=== PATIENT | male | born 1990 | race Caucasian/White ===

== ENCOUNTER 2022-04-23 12:05 | Outpatient (REF) | payer MEDICAID, SELFPAY ==
--- NOTE | ~2022-04-23 | XR_ITS ---
EXAMINATION: XR LUMBOSACRAL SPINE WITH OBLIQUES CLINICAL INFORMATION: Back pain. COMPARISON: Dorsal spine radiographs 04/22/2022 TECHNIQUE: Lumbar spine is imaged in 5 views. FINDINGS: There is normal lumbar segmentation with 5 nonrib-bearing lumbar vertebrae of normal height and normal lumbar lordosis. No lumbar vertebral compression, spondylolisthesis, destructive process, or disc narrowing. No erosive changes. Oblique views show no spondylolysis. The SI joints and visualized sacrum are unremarkable. XR/XR lumbar spine 4V min IMPRESSION: Unremarkable examination.
--- NOTE | ~2022-04-23 | XR_ITS ---
EXAMINATION: XR THORACIC SPINE CLINICAL INFORMATION: Dorsal pain. COMPARISON: Radiographs cervical spine and lumbar spine 04/23/2022., Chest radiographs 12/20/2013 TECHNIQUE: 3 views of the thoracic spine were obtained. FINDINGS: Normal thoracic segmentation with 12 rib-bearing thoracic vertebrae of normal height and normal thoracic kyphosis. No thoracic vertebral compression, destructive process, disc narrowing, or paraspinal soft tissues swelling. No spondylolisthesis. XR/XR thoracic spine 3V IMPRESSION: Unremarkable examination.
--- NOTE | ~2022-04-23 | XR_ITS ---
EXAMINATION: XR CERVICAL SPINE CLINICAL INFORMATION: Neck pain COMPARISON: None TECHNIQUE: 5 views of the cervical spine were obtained. FINDINGS: The cervical vertebral bodies are normal in height and there is no vertebral compression or visible fracture or destructive process. The odontoid appears intact. No prevertebral soft tissue swelling. No focal disc narrowing or spondylolisthesis. No erosive change. There is borderline posterior spurring at C3-C4. Oblique view show no osseous narrowing of the neural foramina. XR/XR cervical spine 4V IMPRESSION: 1. No vertebral compression, spondylolisthesis, or disc narrowing. 2. Borderline posterior spurring C3-C4.
== END 2022-04-23 12:06 | disposition home or self-care (01) ==
LOC: HO.XRAY 12:05
PROVIDERS: PCP Registered Nurse; Visit Provider Registered Nurse
DX: M54.6 Pain in thoracic spine (principal); M54.2 Cervicalgia; M54.50 Low back pain, unspecified
CPT/HCPCS: 72050; 72072; 72110

== ENCOUNTER 2022-05-23 21:19 | Emergency (ER) | payer MEDICAID, SELFPAY ==
[2022-05-23 21:36] VITALS: BP 147/76; PULSE 102; RESP 18; TEMP 36.8; O2SAT 97; BMI 37.9
[2022-05-23 22:27] LABS: MANUAL DIFF FLAG NO
[2022-05-23 22:29] LABS: Basophils Absolute Auto 0.1 X10*3/uL (0.0-0.2); Basophils Percent Auto 0.6 % (0-2); Eosinophils Absolute Auto 0.1 X10*3/uL (0.0-0.4); Eosinophils Percent Auto 1.3 % (0-4); Hematocrit 46.4 % (42.0-52.0); Hemoglobin 16.3 g/dl (14.0-18.0); Imm Gran Abs Auto 0.02 X10*3/uL (0.00-0.03); Imm Gran Pct Auto 0.2 % (0.0-0.4); Lymphocytes Percent Auto 23.9 % (20-40); Mean Corpuscular HGB Conc 35.1 g/dl (31.0-36.0); Mean Corpuscular Hemoglobin 30.1 pg (27.0-33.0); Mean Corpuscular Volume 85.6 fL (80.0-98.0); Mean Platelet Volume 9.8 fL (9.4-12.4); Monocytes Absolute Auto 0.7 X10*3/uL (0.1-1.2); Neutrophils Absolute Auto 5.4 x10*3/uL (2.0-8.3); Platelet Count 253 X10*3/uL (160-400); Red Blood Count 5.42 X10*6/uL (4.60-5.80); Red Cell Distribution Width 11.9 % (11.0-16.0); White Blood Count 8.2 X10*3/uL (4.8-10.8)
[2022-05-23 22:50] LABS: OBS Int Ctl Valid YES; OBS1 POSITIVE (NEGATIVE)
[2022-05-23 22:51] LABS: Alanine Aminotransferase 33 U/L (0-40); Albumin Level 4.4 g/dL (3.5-5.0); Alkaline Phosphatase 59 U/L (39-117); Anion Gap 12 (12-20); Aspartate Amino Transferase 24 U/L (5-37); Bilirubin Total 0.7 mg/dL (0.0-1.0); Blood Urea Nitrogen 19 mg/dL (9-16); Calcium 9.2 mg/dL (8.4-10.2); Carbon Dioxide 28 mmol/L (22-29); Chloride 105 mmol/L (96-108); Estimated Glomerular Filt Rate > 60; Glucose Random 99 mg/dL (60-115); Potassium 4.1 mmol/L (3.3-5.1); Sodium 141 mmol/L (135-145); Total Protein 7.3 g/dL (6.5-8.0)
[2022-05-23 22:56] LABS: COVID-19 Test Negative (Negative)
--- NOTE | 2022-05-23 23:19 | ED.GIBLEED ---
HPI - GI Bleed General Chief complaint: GI Bleed Stated complaint: rectal bleeding Time Seen by Provider: 05/23/22 22:13 Source: patient Mode of arrival: ambulatory History of Present Illness HPI Narrative: 32-year-old male presents with a copious amount of rectal bleeding that occurred after defecation this afternoon and was not associated with abdominal pain, nausea, vomiting, NSAID use and has since stopped. However, patient reports that he has had intermittent episodes like this throughout his life but that today it was ?more than usual . Related Data Allergies Allergy/AdvReac Type Severity Reaction Status Date / Time No Known Allergies Allergy Unverified 02/23/20 16:15 Review of Systems Review of Systems: Pertinent positives and negatives as stated in HPI 10 point review of systems otherwise negative. PMFSH Past Medical History Source: nursing notes reviewed Social History Social History Smoked in Last 30 Days: No Use of substances other than those prescribed or required for medical reasons: No Advance Directives: No Advance Directives Information Provided: No Physical Exam Vital Signs: Vital Signs: Last Vital Signs Temp 98.2 F 05/23/22 21:36 Pulse 102 H 05/23/22 21:36 Resp 18 05/23/22 21:36 BP 147/76 H 05/23/22 21:36 Pulse Ox 97 05/23/22 21:36 O2 Del Method 05/23/22 21:36 BMI result Body Mass Index 37.9 VITAL SIGNS: Reviewed. GENERAL: Well developed, well nourished, in no acute distress. HEAD: Normocephalic/atraumatic EYES: PERRLA, EOMI EARS: Ext canals without abnormality OROPHARYNX: no oral lesions noted, posterior pharynx clear, pink mucosa NECK: Supple, no adenopathy LUNGS: Normal breath sounds. No adventitious sounds or accessory muscle use. SpO2<97> CARDIOVASCULAR: Regular rate and rhythm without noted murmurs ABDOMEN: Soft, non-tender, non-distended with bowel sounds. MARTHA: Not inflamed/dilated external hemorrhoids noted at the 6 o'clock position, scant stool in the rectal vault without gross blood on finger, good rectal tone MUSCULOSKELETAL: No tenderness, deformities, or effusions noted on gross inspection. EXTREMITIES: No cyanosis, clubbing or edema. SKIN: Inspection of the skin reveals no rashes NEUROLOGIC: Alert and oriented x 4. Strength and sensation to light touch were grossly intact x 4. Course Course Course Narrative: 32-year-old male with history and clinical presentation consistent with hemorrhoidal bleeding, review of lab work demonstrates stable H&H, patient is not hypotensive, there is good color to mucosa and although there is a noted tachycardia-102 there was not gross blood on the finger, abdominal exam is benign and there is negative history for unexplained weight loss, family history colon cancer. Of note, patient does report a lifelong history of 4-5 bowel movements a day. The stool guaiac is positive, however this is not surprising but patient appears otherwise objectively and clinically stable. Medical Decision Making Lab Data Result Diagrams: 05/23/22 22:23 05/23/22 22:23 Labs: Lab Results 05/23/22 05/23/22 05/23/22 Range/Units 22:23 22:23 22:23 WBC 8.2 (4.8-10.8) X10*3/uL RBC 5.42 (4.60-5.80) X10*6/uL Hgb 16.3 (14.0-18.0) g/dl Hct 46.4 (42.0-52.0) % MCV 85.6 (80.0-98.0) fL MCH 30.1 (27.0-33.0) pg MCHC 35.1 (31.0-36.0) g/dl RDW 11.9 (11.0-16.0) % Plt Count 253 (160-400) X10*3/uL MPV 9.8 (9.4-12.4) fL Immature Gran % (Auto) 0.2 (0.0-0.4) % Neut % (Auto) 66.0 (45-73) % Lymph % (Auto) 23.9 (20-40) % [place] % (Auto) 8.0 (2-11) % Eos % (Auto) 1.3 (0-4) % Baso % (Auto) 0.6 (0-2) % Lymph # (Auto) 2.0 (1.2-4.9) X10*3/uL [place] # (Auto) 0.7 (0.1-1.2) X10*3/uL Eos # (Auto) 0.1 (0.0-0.4) X10*3/uL Baso # (Auto) 0.1 (0.0-0.2) X10*3/uL Abs Immat Gran (auto) 0.02 (0.00-0.03) X10*3/uL Absolute Neuts (auto) 5.4 (2.0-8.3) x10*3/uL Absolute Nucleated RBC 0.000 (0.0-0.012) X10*3/uL Nucleated RBC % (auto) 0.0 (0.0-0.2) /100WBC Sodium 141 (135-145) mmol/L Potassium 4.1 (3.3-5.1) mmol/L Chloride 105 (96-108) mmol/L Carbon Dioxide 28 (22-29) mmol/L Anion Gap 12 (12-20) BUN 19 H (9-16) mg/dL Creatinine 1.15 (0.5-1.4) mg/dL Estim Creat Clear Calc 111.0 Estimated GFR > 60 Random Glucose 99 (60-115) mg/dL Calcium 9.2 (8.4-10.2) mg/dL Total Bilirubin 0.7 (0.0-1.0) mg/dL AST 24 (5-37) U/L ALT 33 (0-40) U/L Alkaline Phosphatase 59 (39-117) U/L Total Protein 7.3 (6.5-8.0) g/dL Albumin 4.4 (3.5-5.0) g/dL Stool Occult Blood (NEGATIVE) COVID-19 ([facility]URKA) Negative (Negative) COVID-19 Clin Com See Note 05/23/22 Range/Units 22:42 WBC (4.8-10.8) X10*3/uL RBC (4.60-5.80) X10*6/uL Hgb (14.0-18.0) g/dl Hct (42.0-52.0) % MCV (80.0-98.0) fL MCH (27.0-33.0) pg MCHC (31.0-36.0) g/dl RDW (11.0-16.0) % Plt Count (160-400) X10*3/uL MPV (9.4-12.4) fL Immature Gran % (Auto) (0.0-0.4) % Neut % (Auto) (45-73) % Lymph % (Auto) (20-40) % [place] % (Auto) (2-11) % Eos % (Auto) (0-4) % Baso % (Auto) (0-2) % Lymph # (Auto) (1.2-4.9) X10*3/uL [place] # (Auto) (0.1-1.2) X10*3/uL Eos # (Auto) (0.0-0.4) X10*3/uL Baso # (Auto) (0.0-0.2) X10*3/uL Abs Immat Gran (auto) (0.00-0.03) X10*3/uL Absolute Neuts (auto) (2.0-8.3) x10*3/uL Absolute Nucleated RBC (0.0-0.012) X10*3/uL Nucleated RBC % (auto) (0.0-0.2) /100WBC Sodium (135-145) mmol/L Potassium (3.3-5.1) mmol/L Chloride (96-108) mmol/L Carbon Dioxide (22-29) mmol/L Anion Gap (12-20) BUN (9-16) mg/dL Creatinine (0.5-1.4) mg/dL Estim Creat Clear Calc Estimated GFR Random Glucose (60-115) mg/dL Calcium (8.4-10.2) mg/dL Total Bilirubin (0.0-1.0) mg/dL AST (5-37) U/L ALT (0-40) U/L Alkaline Phosphatase (39-117) U/L Total Protein (6.5-8.0) g/dL Albumin (3.5-5.0) g/dL Stool Occult Blood POSITIVE (NEGATIVE) COVID-19 ([facility]URKA) (Negative) COVID-19 Clin Com Discharge Plan Discharge Clinical Impression: Hemorrhoids, Bleeding hemorrhoids Patient Disposition: Home, Self-Care Instructions: Hemorrhoids (ED), Constipation (ED), High Fiber Diet (ED) Additional Instructions: 1. Recommend [id number] tucks or preparation H for anal itching 2. Recommend that you eat a diet high in fiber, increase your fresh fruits and vegetables 3. You have been provided with a referral to follow-up with gastroenterology and should call the office on Thursday. 4. Please follow-up with your primary care provider by calling the office on Thursday. Return to the ER for worsening symptoms. Referrals: Hiwot Claros MD [Physician] -
--- NOTE | 2022-05-23 23:57 | PC.NURSE ---
Discharge instructions reviewed with pt. Pt verbalizes understanding.
== END 2022-05-23 23:57 | disposition home or self-care (01) ==
PROVIDERS: Emergency Provider Student in an Organized Health Care Education/Training Program
DX: K64.4 Residual hemorrhoidal skin tags (principal); R00.0 Tachycardia, unspecified; Z20.822 Contact with and (suspected) exposure to COVID-19
CPT/HCPCS: 36415; 80053; 82272; 85025; 87635; 99283; 99284

== ENCOUNTER 2022-06-05 00:11 | Emergency (ER) | payer MEDICAID, SELFPAY ==
[2022-06-05 00:17] VITALS: BP 138/76; PULSE 121; RESP 20; TEMP 37.8; O2SAT 95; BMI 34.4
--- OUTSIDE RECORDS SUMMARY | 2022-06-05 00:46 | XMS_ITS | Continuity of Care Document ---
:1990 Author Organization [facility] Address [address] [place] [id number]- Care Team Providers Name Role Phone Not on Staff, PCP Primary Care Physician Unavailable Encounter [facility] Date(s): 08/23/19 - 08/23/[address] [id number]- [facility] Encounter Diagnosis Concussion (Final) - 08/23/19 Discharge Disposition: A-D/C Home Attending Physician: Sandie Pickering DO Admitting Physician: Sandie Pickering DO Referring Physician: Not on Staff, Referring MD Allergies, Adverse Reactions, Alerts Substance Reaction Severity Status NKA Active Vital Signs Most recent to oldest 1 2 3 [Reference Range]: Oxygen Saturation [94-100 %] 99 % 98 % 99 % (08/23/19 1:43 AM) (08/23/19 1:00 AM) (08/23/19 12: 29 AM) Pulse Rate [55-90 bpm] 77 bpm 78 bpm 73 bpm (08/23/19 1:43 AM) (08/23/19 1:00 AM) (08/23/19 12: 29 AM) Blood Pressure [90-138/55-84 120/84 mm Hg 129/74 mm Hg 152 /84 mm Hg mm Hg] (08/23/19 1:43 AM) (08/23/19 1:00 AM) *H* (08/23/19 12:29 A M) Respiratory Rate [16-30 17 br/min 18 br/min 16 br/mi n br/min] (08/23/19 1:43 AM) (08/23/19 1:00 AM) (08/23/19 12: 29 AM) Temperature [96.8-100.4 DegF] 98.7 DegF 97.9 DegF (08/23/19 1:00 AM) (08/23/19 12:29 AM) Mode of Delivery (Oxygen) Room air Room air Room a ir (08/23/19 1:43 AM) (08/23/19 1:00 AM) (08/23/19 12: 29 AM) Blood pressure sites Arm, right Arm, right (08/23/19 1:43 AM) (08/23/19 12:29 AM) Temperature Route Oral Oral (08/23/19 1:00 AM) (08/23/19 12:29 AM)
--- NOTE | 2022-06-05 01:10 | ED.GENADULT ---
HPI - General Adult General Chief complaint: Upper Respiratory Symptoms Stated complaint: Flu like Time Seen by Provider: 06/05/22 00:33 Source: patient Mode of arrival: ambulatory Limitations: no limitations History of Present Illness HPI narrative: Patient comes emergency room complaining of fever and chills, body pains, headache and sore throat for less than 24 hours. No nausea vomiting or diarrhea, no abdominal pain, no chest pain or shortness of breath. Related Data Previous Rx's Medication Instructions Recorded acetaminophen 500 mg tablet 500 mg PO Q6H PRN fever or pain 06/05/22 #14 tabs ibuprofen 600 mg tablet 600 mg PO TID PRN fever or pain 06/05/22 #14 tabs oseltamivir 75 mg capsule (Tamiflu) 75 mg PO BID 5 days #10 caps 06/05/22 Allergies Allergy/AdvReac Type Severity Reaction Status Date / Time No Known Allergies Allergy Unverified 02/23/20 16:15 Review of Systems Review of Systems: Constitutional : No Weight loss, complaining of subjective fever, chills, fatigue and generalized malaise ENT/Mouth : No Hearing loss, No Ear Pain, No Nasal Congestion, No Sinus Pain, No Hoarseness, complaining of mild sore throat, No Rhinorrhea, No Swallowing Difficulty Eyes: No Eye Pain, No Swelling, No Redness, No Foreign Body, No Discharge, No Vision Changes Cardiovascular : No Chest Pain, No SOB, No Dyspnea on Exertion, No Orthopnea, No Edema, No Palpitations Respiratory : Complaining of dry Cough, No Sputum, No Wheezing, No Smoke Exposure, No Dyspnea Gastrointestinal : Complaining of Nausea, No Vomiting, No Diarrhea, No Constipation, No abdominal Pain, No Hematochezia, No Melena Genitourinary : no irregular bleeding, No Dysuria, No Urinary Frequency, No Hematuria, No Urinary Incontinence, No Urgency, No Flank Pain, No Urinary Flow Changes, No Hesitancy Musculoskeletal : No joint pain, No Myalgias, No Joint Swelling Skin : No Skin Lesions, No rash Neuro : No Weakness, No Numbness, No Paresthesias, No Loss of Consciousness, No Dizziness, No Headache Psych : No Anxiety/Panic, No Depression, No SI/HI/AH/VH, No Social Issues, Heme/Lymph: No Bruising, No Bleeding,No Lymphadenopathy Endocrine : No Polyuria, No Polydipsia, No Temperature Intolerance PMFSH Social History Social History Advance Directives: No Advance Directives Information Provided: Yes Physical Exam ED Vital Signs: Vital Signs - 24 hr 06/05/22 00:17 Temperature 100.0 F Pulse Rate 121 H Respiratory Rate 20 Blood Pressure 138/76 Pulse Oximetry 95 Oxygen Delivery Method Room Air BMI result Body Mass Index 34.4 Const Other: Appearance: Alert. Oriented X3. No acute distress. Eyes: Pupils equal, round and reactive to light. ENT: Pharynx normal. No erythema, no exudates, no vesicles Neck: Normal inspection. Neck supple. No lymph nodes noted. No crepitus CVS: Normal heart rate and rhythm. Pulses normal. Normal S1 and S2 Respiratory: No respiratory distress. Breath sounds normal. No Wheezing. No rales Abdomen: Soft and nontender. No rigidity. No distention. Skin: Skin warm and dry. Normal skin color. Normal skin turgor. Extremities: No lower extremity edema. No Lacerations. No Rash Neuro: Oriented X 3. No motor deficit. No sensory deficit. Moving all extremities. No slurred speech. CN 2 through 12 grossly intact Psych: calm, cooperative, normal affect Course Course Course Narrative: Patient serology tests pending. Patient test positive for influenza A. Patient has been sick for a day. Still within the window of treatment. Patient agreeable to take Tamiflu. Medical Decision Making Differential Diagnosis Differential Diagnoses: The differential diagnosis associated with the presentation includes (Influenza, COVID) Lab Data MDM Lab Attestation statement: I reviewed the patient's lab results. Labs: Lab Results 06/05/22 Range/Units 00:25 Influenza Type A (PCR) POSITIVE A (Negative) Influenza Type B (PCR) NEGATIVE (Negative) RSV RNA Qual (PCR) NEGATIVE (Negative) SARS-CoV-2 RNA (RT-PCR) NEGATIVE (Negative) Discharge Plan Discharge Clinical Impression: Influenza Patient Disposition: Home, Self-Care Instructions: Influenza (ED) Additional Instructions: Please follow-up with your primary care physician tomorrow. If you have any worsening or new symptoms, please return to the emergency room or call 911 Prescriptions: New oseltamivir [Tamiflu] 75 mg capsule 75 mg PO BID 5 Days Qty: 10 0RF ibuprofen 600 mg tablet 600 mg PO TID PRN (Reason: fever or pain) Qty: 14 0RF acetaminophen 500 mg tablet 500 mg PO Q6H PRN (Reason: fever or pain) Qty: 14 0RF Stand Alone Forms: Work/School Release
[2022-06-05 01:16] LABS: Influenza A PCR POSITIVE (Negative); Influenza B PCR NEGATIVE (Negative); Resp Syncy Virus RNA Qual PCR NEGATIVE (Negative); SARS COV2 PCR INHOUSE NEGATIVE (Negative)
[2022-06-05] MEDS: Ibuprofen 600 MG TABLET PO (01:33)
== END 2022-06-05 01:49 | disposition home or self-care (01) ==
PROVIDERS: Emergency Provider Emergency Medicine
DX: J11.1 Influenza due to unidentified influenza virus with other respiratory manifestations (principal); R50.9 Fever, unspecified; Z20.822 Contact with and (suspected) exposure to COVID-19
CPT/HCPCS: 0241U; 36415; 71045; 80048; 85025; 93005; 96361; 96374; 96375; 96376; 99283; 99284; 99285; J1885; J2405

== ENCOUNTER 2022-06-05 22:45 | Emergency (ER) | payer MEDICAID, SELFPAY ==
--- NOTE | 2022-06-05 | ECG_ITS ---
Test Reason : NEAR SYNCOPE Blood Pressure : / mmHG Vent. Rate : 113 BPM Atrial Rate : 113 BPM P-R Int : 126 ms QRS Dur : 088 ms QT Int : 322 ms P-R-T Axes : 019 038 -08 degrees QTc Int : 441 ms Sinus tachycardia Otherwise normal ECG When compared with ECG of 27-AUG-2013 02:49, Vent. rate has increased BY [address] no longer elevated in Inferior leads T wave inversion now evident in Inferior leads T wave amplitude has decreased in Lateral leads Referred By: Generic ED Physician Electronically Signed By:LARISA YU MD
--- NOTE | ~2022-06-05 | XR_ITS ---
EXAMINATION: XR CHEST CLINICAL INFORMATION: Cough COMPARISON: 12/20/2013 TECHNIQUE: Frontal view of the chest was obtained. FINDINGS: Normal symmetric lung volumes. No parenchymal consolidation. No pleural effusion. No pneumothorax. Cardiomediastinal silhouette and pulmonary vascularity are within normal limits. No acute osseous abnormalities. XR/XR chest 1V IMPRESSION: No acute findings
[2022-06-05 22:53] VITALS: BP 116/80; PULSE 118; O2SAT 97
[2022-06-05 23:16] VITALS: BP 142/76; PULSE 126; RESP 20; TEMP 37.5; O2SAT 95; BMI 34.4
[2022-06-06 00:17] LABS: MANUAL DIFF FLAG NO
[2022-06-06 00:19] LABS: Basophils Percent Auto 0.3 % (0-2); Eosinophils Percent Auto 0.1 % (0-4); Hematocrit 46.1 % (42.0-52.0); Hemoglobin 15.8 g/dl (14.0-18.0); Imm Gran Abs Auto 0.03 X10*3/uL (0.00-0.03); Imm Gran Pct Auto 0.3 % (0.0-0.4); Lymphocytes Absolute Auto 0.7 X10*3/uL (1.2-4.9); Lymphocytes Percent Auto 7.3 % (20-40); Mean Corpuscular HGB Conc 34.3 g/dl (31.0-36.0); Mean Corpuscular Hemoglobin 30.1 pg (27.0-33.0); Mean Corpuscular Volume 87.8 fL (80.0-98.0); Mean Platelet Volume 9.7 fL (9.4-12.4); Monocytes Absolute Auto 1.1 X10*3/uL (0.1-1.2); Neutrophils Absolute Auto 7.1 x10*3/uL (2.0-8.3); Platelet Count 202 X10*3/uL (160-400); Red Blood Count 5.25 X10*6/uL (4.60-5.80); Red Cell Distribution Width 11.9 % (11.0-16.0); White Blood Count 8.9 X10*3/uL (4.8-10.8)
[2022-06-06 00:41] LABS: Anion Gap 14 (12-20); Blood Urea Nitrogen 13 mg/dL (9-16); Calcium 8.9 mg/dL (8.4-10.2); Carbon Dioxide 22 mmol/L (22-29); Chloride 104 mmol/L (96-108); Creatinine Clr Calc Pharmacy 114.6; Estimated Glomerular Filt Rate > 60; Glucose Random 120 mg/dL (60-115); Potassium 3.6 mmol/L (3.3-5.1); Sodium 136 mmol/L (135-145)
[2022-06-06 02:05] VITALS: BP 112/71; PULSE 107; RESP 16; TEMP 37.6; O2SAT 95
--- NOTE | 2022-06-06 02:35 | ED_ITS ---
HPI - General Adult General Chief complaint: Weakness Stated complaint: +Flu/Flu Symptoms Time Seen by Provider: 06/06/22 02:30 Source: patient and EMS Mode of arrival: EMS Limitations: no limitations History of Present Illness HPI narrative: 32-year-old male came in for 2 days of flu-like symptoms, patient was seen and evaluated in the ED yesterday tested positive for the influenza a patient was started on Tamiflu, patient returned today for still not feeling good, patient been having nausea and vomiting and unable to tolerate p.o. intake, generalized body ache, shortness of breath and difficulty breathing. No sick contact, no recent travel. Related Data Previous Rx's Medication Instructions Recorded acetaminophen 500 mg tablet 500 mg PO Q6H PRN fever or pain 06/05/22 #14 tabs ibuprofen 600 mg tablet 600 mg PO TID PRN fever or pain 06/05/22 #14 tabs oseltamivir 75 mg capsule (Tamiflu) 75 mg PO BID 5 days #10 caps 06/05/22 Allergies Allergy/AdvReac Type Severity Reaction Status Date / Time No Known Allergies Allergy Unverified 02/23/20 16:15 Review of Systems Review of Systems: All other systems are reviewed and are negative Constitutional: Reports as per HPI and Reports no additional constitutional complaints Eyes: Reports as per HPI and Reports no additional eye complaints Reports system reviewed and no additional complaints, except as documented Cardiovascular: Reports as per HPI and Reports no additional cardiovascular complaints Respiratory: Reports as per HPI and Reports no additional respiratory complaints Gastrointestinal: Reports as per HPI and Reports no additional gastrointestinal complaints Genitourinary: Reports no additional female genitourinary complaints Musculoskeletal: Reports no additional musculoskeletal complaints Skin/Breast: Reports system reviewed and no additional complaints, except as docu Psychiatric: Reports no additional psychiatric complaints Endocrine: Reports no additional endocrine complaints Hematologic/Lymphatic: Reports no additional hematologic/lymphatic complaints Allergic/Immunologic: Reports no additional allergic/immunologic complaints Reports system reviewed and no additional complaints, except as documented and Reports Abnormal speech present [facility] Social History Social History Advance Directives: No Advance Directives Information Provided: No Physical Exam ED Vital Signs: Vital Signs - 24 hr 06/05/22 23:16 06/06/22 02:05 Temperature 99.5 F 99.6 F Pulse Rate 126 H 107 H Respiratory Rate 20 16 Blood Pressure 142/76 H 112/71 Pulse Oximetry 95 95 Oxygen Delivery Method Room Air Room Air BMI result Body Mass Index 34.4 Vital signs have been reviewed as appeared to be correct. Blood pressure normal. Heart rate normal. Respiration rate normal. Temperature normal. Oxygen saturation normal. Appearance: Alert. Oriented X3. No acute distress. Head: Normal external exam. Normocephalic. Atraumatic. No Lorenzo signs noted. No raccoon eyes noted Eyes: PERRLA. EOMI. Conjunctiva and sclera normal. Eyelids normal. ENT: TM's Normal. Pharynx normal. Uvula midline. Dry mucous membranes. No trismus noted. No drooling noted. No muffled voice noted. Neck: Normal inspection. Neck supple. FROM. No adenopathy. Thyroid Normal. No meningeal signs. No neck mass noted. CVS: Normal heart rate and rhythm. Heart sound normal. No murmurs noted. Pulses normal throughout. Respiratory: No respiratory distress. Painless inspiration. Breath sounds normal. No wheezes/rales/rhonchi noted. Chest nontender. No accessory muscle usage noted or decreased air movement noted. Abdomen: Soft and nontender. Bowel sounds normal in all 4 quadrants. No distention noted. No organomegaly noted. No visible injury noted. Back: No CVA tenderness. Full range of motion noted. Skin: Skin warm and dry. Normal skin color. Normal skin turgor. No rashes/lesions/lacerations noted. Extremities: No lower extremity edema. Extremities exhibit normal range of motion. Extremities nontender. Neuro: Oriented X 3. Cranial nerve exam: II-XII are grossly intact No motor deficit. No sensory deficit. Reflexes normal. Course Course Course Narrative: 32-year-old male with flu symptoms and positive for influenza a came in after feeling generally weak and unable to tolerate p.o. intake, patient received 2 L of IV fluids in the emergency department and patient is feeling much better as recommended to the patient to be continue using NSAIDs for symptoms. Medications Administered Generic Name Dose Route Start Last Admin Trade Name Freq PRN Reason Stop Dose Admin Sodium Chloride 1,000 mls @ 999 mls/hr 06/06/22 04:55 06/06/22 05:01 Ns IV 06/06/22 05:55 999 mls/hr .Q1H1M ONE Administration Discontinued Medications Generic Name Dose Route Start Last Admin Trade Name Freq PRN Reason Stop Dose Admin Al Hydroxide/Mg Hydroxide 30 ml 06/06/22 02:30 06/06/22 02:55 Magnesium Hydrox/Alum Hydrox 30 Ml Oral.Susp PO 06/06/22 02:31 30 ml ONCE ONE Administration Sodium Chloride 1,000 mls @ 999 mls/hr 06/06/22 02:30 06/06/22 04:01 Ns IV 06/06/22 03:30 Infused .Q1H1M ONE Infusion Ketorolac Tromethamine 30 mg 06/06/22 02:30 06/06/22 02:56 Ketorolac Tromethamine 30 Mg/Ml Vial IVPUSH 06/06/22 02:31 30 mg ONCE ONE Administration Ondansetron HCl 4 mg 06/06/22 02:30 06/06/22 02:55 Ondansetron Hcl 4 Mg/2 Ml Vial IVPUSH 06/06/22 02:31 4 mg ONCE ONE Administration Medical Decision Making Differential Diagnosis Differential Diagnoses: The differential diagnosis associated with the presentation includes (Dehydration/influenza) Lab Data MDM Lab Attestation statement: I reviewed the patient's lab results. Result Diagrams: 06/06/22 00:12 06/06/22 00:12 Labs: Lab Results 06/06/22 06/06/22 Range/Units 00:12 00:12 WBC 8.9 (4.8-10.8) X10*3/uL RBC 5.25 (4.60-5.80) X10*6/uL Hgb 15.8 (14.0-18.0) g/dl Hct 46.1 (42.0-52.0) % MCV 87.8 (80.0-98.0) fL MCH 30.1 (27.0-33.0) pg MCHC 34.3 (31.0-36.0) g/dl RDW 11.9 (11.0-16.0) % Plt Count 202 (160-400) X10*3/uL MPV 9.7 (9.4-12.4) fL Immature Gran % (Auto) 0.3 (0.0-0.4) % Neut % (Auto) 80.0 H (45-73) % Lymph % (Auto) 7.3 L (20-40) % [place] % (Auto) 12.0 H (2-11) % Eos % (Auto) 0.1 (0-4) % Baso % (Auto) 0.3 (0-2) % Lymph # (Auto) 0.7 L (1.2-4.9) X10*3/uL [place] # (Auto) 1.1 (0.1-1.2) X10*3/uL Eos # (Auto) 0.0 (0.0-0.4) X10*3/uL Baso # (Auto) 0.0 (0.0-0.2) X10*3/uL Abs Immat Gran (auto) 0.03 (0.00-0.03) X10*3/uL Absolute Neuts (auto) 7.1 (2.0-8.3) x10*3/uL Absolute Nucleated RBC 0.000 (0.0-0.012) X10*3/uL Nucleated RBC % (auto) 0.0 (0.0-0.2) /100WBC Sodium 136 (135-145) mmol/L Potassium 3.6 (3.3-5.1) mmol/L Chloride 104 (96-108) mmol/L Carbon Dioxide 22 (22-29) mmol/L Anion Gap 14 (12-20) BUN 13 (9-16) mg/dL Creatinine 1.06 (0.5-1.4) mg/dL Estim Creat Clear Calc 114.6 Estimated GFR > 60 Random Glucose 120 H (60-115) mg/dL Calcium 8.9 (8.4-10.2) mg/dL Independent Interpretation I performed an independent interpretation of an: Plain X-Ray (No acute findings.) Discharge Plan Discharge Clinical Impression: Dehydration, Influenza A Patient Disposition: Home, Self-Care Instructions: Dehydration (ED), Influenza (ED) Prescriptions: No Action oseltamivir [Tamiflu] 75 mg capsule 75 mg PO BID 5 Days Qty: 10 0RF ibuprofen 600 mg tablet 600 mg PO TID PRN (Reason: fever or pain) Qty: 14 0RF acetaminophen 500 mg tablet 500 mg PO Q6H PRN (Reason: fever or pain) Qty: 14 0RF Referrals: [facility] [Primary Care Provider] - Stand Alone Forms: Work/School Release
[2022-06-06] MEDS: ondansetron HCL 4 MG/2 ML VIAL IVPUSH ×2 (02:55→06:31)
[2022-06-06] MEDS: Magnesium Hydrox/Alum Hydrox 30 ML ORAL.SUSP PO (02:55)
[2022-06-06] MEDS: 0.9 % Sodium Chloride 1,000 ML 999 ML IV ×2 (02:56→05:01)
[2022-06-06] MEDS: Ketorolac Tromethamine 30 MG/ML VIAL IVPUSH ×2 (02:56→06:32)
--- NOTE | 2022-06-06 04:03 | PC.NURSE ---
Pt feeling much better after fluids and medications.
== END 2022-06-06 06:41 | disposition home or self-care (01) ==
PROVIDERS: Emergency Provider Emergency Medicine
DX: J10.1 Influenza due to other identified influenza virus with other respiratory manifestations (principal); R06.02 Shortness of breath; M79.10 Myalgia, unspecified site; E86.0 Dehydration; Z79.899 Other long term (current) drug therapy
CPT/HCPCS: 36415; 71045; 80048; 85025; 93005; 96361; 96374; 96375; 96376; 99284; 99285; J1885; J2405

== ENCOUNTER 2022-09-08 07:35 | Emergency (ER) | payer MEDICAID, SELFPAY ==
[2022-09-08 07:38] VITALS: BP 126/76; PULSE 93; RESP 18; TEMP 36.6; O2SAT 97; BMI 34.4
--- NOTE | 2022-09-08 08:03 | ED_ITS ---
HPI - Ear Problem General Chief complaint: Ear Problems Stated complaint: Qtip broke off in r ear Time Seen by Provider: 09/08/22 07:55 Source: patient Mode of arrival: ambulatory Limitations: no limitations History of Present Illness HPI Narrative: 32-year-old male presents with right ear symptoms. Patient was using a Q-tip this morning when a piece broke off. He has had difficulty hearing ever since. Symptoms are ygqj-ww-qryhguxm. There is no clear relieving or exacerbating features. He feels scratchy sensation in his ear. The sensation does not radiate. There has been no discharge from his ear. Related Data Previous Rx's Medication Instructions Recorded mtjoudtv-oebehvslu-avbjikrog 3.5 4 drp otic (ear) left Q8H 10 days 09/08/22 mg/mL-10,000 unit/mL-1 % ear #10 mL solution Allergies Allergy/AdvReac Type Severity Reaction Status Date / Time No Known Allergies Allergy Unverified 02/23/20 16:15 [facility] Social History Social History Alcohol intake: never Advance Directives: No Advance Directives Information Provided: No Physical Exam Vital Signs: Vital Signs: Last Vital Signs Temp 98 F 09/08/22 07:38 Pulse 93 09/08/22 07:38 Resp 18 09/08/22 07:38 BP 126/76 09/08/22 07:38 Pulse Ox 97 09/08/22 07:38 O2 Del Method Room Air 09/08/22 07:38 BMI result Body Mass Index 34.4 GEN: Well developed, no acute distress, alert, oriented HEENT: Normocephalic, atraumatic, normal external ears, nose appears normal, no perforation of the tympanic membrane, no erythematous or bulging from the tympanic membrane. External auditory canal is erythematous without drainage Eyes: Normal to appearance Neck: Supple, no lymphadenopathy Respiratory: Talks in complete sentences, no respiratory distress Extremities: No clubbing cyanosis or edema Neurologic: No focal neurologic deficits, cranial nerves 2-12 intact, gait normal Skin: No rash Course Course Course Narrative: 32-year-old male presents with right ear discomfort. Patient thought he had a foreign body within his right ear. There is no from body on examination. There is erythematous changes the auditory canal. Will start patient on antibiotics prophylactically given the degree of irritation. Medical Decision Making Medical Decision Making [facility] Narrative: male presents with right ear discomfort. Patient thought he had a foreign body within his right ear. There is no from body on examination. There is erythematous changes the auditory canal. Will start patient on antibiotics prophylactically given the degree of irritation. Differential Diagnosis Differential Diagnoses: The differential diagnosis associated with the presentation includes (Foreign body, irritation, otitis externa, perforation) Prescription Management I considered prescription management with: Pain Medication Discharge Plan Discharge Clinical Impression: Acute otalgia, Change in hearing Patient Disposition: Home, Self-Care Instructions: Hearing Loss (ED), Earache (ED) Prescriptions: New yhdsklgp-wzhmoiveu-OD 3.5-10,000-1 mg/mL-unit/mL-% solution 4 drp otic (ear) left Q8H 10 Days Qty: 10 0RF Discontinued oseltamivir [Tamiflu] 75 mg capsule 75 mg PO BID 5 Days Qty: 10 0RF ibuprofen 600 mg tablet 600 mg PO TID PRN (Reason: fever or pain) Qty: 14 0RF acetaminophen 500 mg tablet 500 mg PO Q6H PRN (Reason: fever or pain) Qty: 14 0RF Referrals: Tj Hilton [Physician] - 3 days Stand Alone Forms: Work/School Release
== END 2022-09-08 08:31 | disposition home or self-care (01) ==
PROVIDERS: Emergency Provider Emergency Medicine
DX: H92.01 Otalgia, right ear (principal); H91.91 Unspecified hearing loss, right ear
CPT/HCPCS: 99282; 99283

== ENCOUNTER 2023-01-24 22:45 | Emergency (ER) | payer MEDICAID, SELFPAY | END 2023-01-24 23:45 | disposition left against medical advice (07) | LOC: HO.ED 23:43 | PROVIDERS: Emergency Provider Emergency Medicine | DX: R10.9 Unspecified abdominal pain (principal) ==

== ENCOUNTER 2024-07-14 15:28 | Outpatient (REF) | payer MEDICAID, SELFPAY ==
--- OUTSIDE RECORDS SUMMARY | 2024-07-14 15:33 | XMS_ITS | Encounter Summary ---
Author Organization [facility] Address [address] [place] [address] Phone Care Team Providers Care Pot Sander Name Role Phone Marquis Aguirre MD Primary Care Provider [phone] Encounter Details Date Type Department Care Team (Late st Contact Info) Description 03/03/2011 Documentation [facility] Family Medicine [address] [place], [place] [phone] Family Medicine, Physician [address], [place] [phone] Social History Tobacco Use Types Packs/Day Years Used Date Smoking Tobacco: Never Assessed Sex and Gender Information Value Date Recorded Sex Assigned at Not on file Legal Sex Male 4:47 PM EDT Gender Identity Not on file Sexual Orientation Not on file documented as of this encounter Plan of Treatment Not on file documented as of this encounter Visit Diagnoses Not on filedocumented in this encounter Care Teams Pot Sander Relationship Specialty Start Date End Date Marquis Aguirre MD [address] [facility] DARSHANA Gallardo PCP - General 01/16/17 07/23/22 documented as of this encounter
--- OUTSIDE RECORDS SUMMARY | 2024-07-14 15:33 | XMS_ITS | Encounter Summary ---
Author Organization [facility] Address [address] [place] [address] Phone Care Team Providers Care Head Of Biology Name Role Phone Marquis Aguirre MD Primary Care Provider Encounter Details Date Type Department Care Team (Late st Contact Info) Description 06/16/2011 Documentation [facility] [place] [facility] [address] [place], [place] [phone] Family Medicine, Physician [address] [place], [place] [address] Social History Tobacco Use Types Packs/Day Years [...] on filedocumented in this encounter Care Teams Head Of Biology Relationship Specialty Start Date End Date Marquis Aguirre MD 150 [facility] DARSHANA Gallardo PCP - General 01/16/17 07/23/22 documented as of this encounter
--- OUTSIDE RECORDS SUMMARY | 2024-07-14 15:33 | XMS_ITS | Encounter Summary ---
Author Organization [facility] Address [address] [place] [address] Phone Care Team Providers Care Architectural Sales Consultant Name Role Phone aMrquis Aguirre MD Primary Care Provider [phone] Encounter Details Date Type Department Care Team (Late st Contact Info) Description 03/03/[address] [facility] Family Medicine [address] [place], [place] [phone] Family Medicine, Physician [address] [place], [place] [address] Social History Tobacco Use Types Packs/Day Years [...] on filedocumented in this encounter Care Teams Architectural Sales Consultant Relationship Specialty Start Date End Date Marquis Aguirre MD 150 [facility] DARSHANA Gallardo PCP - General 01/16/17 07/23/22 documented as of this encounter
--- OUTSIDE RECORDS SUMMARY | 2024-07-14 15:33 | XMS_ITS | Encounter Summary ---
Author Organization [employer] Address [address] [facility] 7 [place] [address] Care Team Providers Care Atmospheric Sciences Professor Name Role Phone Shannon Lipscomb MD Primary Care Pro vider Reason for Visit * Reason Onset Date Comments Appointment Request 05/12/2024 Encounter Details Date Type Department Care Team ([facility] st Contact Info) Description 05/12/2024 Telephone [facility] [address] [place] [address] Shannon Lipscomb MD [address] [place] [address] Appointment Request Social History Tobacco Use Types Packs/Day Years Used Date Smoking Tobacco: Never Smokeless Tobacco: Never Alcohol Use Standard Drinks/Week Comments Never 0 (1 standard drink = 0.6 oz pur e alcohol) Depression Answer Date Recorded Patient Health Questionnaire-9 Score 3 06/19/2022 Housing Stability Answer Date Recorded What is your housing situation today? I have bartolo lisette 04/13/[address] you li ve. Do you have problems with any of the following? None of the above 04/13/2023 Food Insecurity Answer Date Recorded Within the past 12 months, y ou worried that your food would run out before you got money to buy more: Never True 04/13/2023 Within the past 12 months,th e food you bought just didn't last and you didn't have enough money to get more: Never True 11/2022 Transportation Answer Date Recorded In the past 12 months, has l ack of transportation kept you from medical appts, meetings, work or from getting things needed for daily living? No 04/13/2023 Utilities Answer Date Recorded In the past 12 months, has t he electric, gas, oil or water company threatened to shut off services in your home? No 04/13/2023 Depression Answer Date Recorded Patient Health Questionnaire-2 Score 0 06/19/2022 Sex and Gender Information Value Date Recorded Sex Assigned at Male 04/07/2022 10:17 AM EDT Legal Sex Male 10:17 AM EDT Gender Identity Male 04/07/2022 10:17 AM EDT Sexual Orientation Choose not to disclose 2021 10:17 AM EDT documented as of this encounter Miscellaneous Notes * Telephone Encounter - Rudolph Patel - 05/12/2024 2:43 PM EST Tc from pt calling in regards to today's tele visit stating he was having technical issues with hisphone and was unable to receive calls. Pt has now had issues fixed and would like to provide alternative number if unable to reach him from his main one. If no answer please contact [phone]. documented in this encounter Plan of Treatment Upcoming Encounters Date Type Department Care Team (Late st Contact Info) Description 09/09/2024 1:45 PM EDT Office Visit [facility] [address] [place] [address] [phone] Shannon Lipscomb MD [address] [place] [phone] documented as of this encounter Visit Diagnoses Not on filedocumented in this encounter Additional Health Concerns Assessment Noted Time PHQ-9 Depression Total Score: 3 06/19/19 2:58 PM EST documented as of this encounter Care Teams Atmospheric Sciences Professor Relationship Specialty Start Date End Date Shannon Lipscomb MD [address] [place] [address] [phone] PCP - General Internal Medicine 03/11/23 documented as of this encounter
--- OUTSIDE RECORDS SUMMARY | 2024-07-14 15:33 | XMS_ITS | Encounter Summary ---
Author Organization [employer] Address [address] [facility] 7 [place] [address] Care Team Providers Care Nutrition Club Ambassador Name Role Phone Shannon Lipscomb MD Primary Care Pro vider Reason for Visit * Reason Comments Pre-visit Planning (Unable to reach for PVP screening and or LVM) Encounter Details Date Type Department Care Team ([facility] st Contact Info) Description 07/04/2024 Patient Outreach [facility] [address] [place] [address] Shannon Lipscomb MD [address] [place] [address] Pre-visit Planning ((Unable to reach for PVP screening and or LVM)) Social History Tobacco Use Types Packs/Day Years Used Date Smoking Tobacco: Never Smokeless Tobacco: Never Alcohol Use Standard Drinks/Week Comments Never 0 (1 standard drink = 0.6 oz pur e alcohol) Depression Answer Date Recorded Patient Health Questionnaire-9 Score 3 06/19/2022 Housing Stability Answer Date Recorded What is your housing situation today? I have bartolo knox 04/13/[address] you li [...] AM EDT documented as of this encounter Progress Notes * Gretta Hernández - 07/04/2024 10:14 AM EST CC Gretta placed outbound call to patient to complete pre-visit planning. No answer at this time. Patient name and were not confirmed. CC unable to leave a voice message. documented in this encounter Plan of Treatment Upcoming Encounters Date Type Department Care Team (Late st Contact Info) Description 09/09/2024 1:45 PM EDT Office Visit [facility] [address] [place] [phone] Shannon Lipscomb MD [address] [place] [phone] documented as of this encounter Visit Diagnoses Not on filedocumented in this encounter Additional Health Concerns Assessment Noted Time PHQ-9 Depression Total Score: 3 06/19/19 2:58 PM EST documented as of this encounter Care Teams Nutrition Club Ambassador Relationship Specialty Start Date End Date Shannon Lipscomb MD [address] [place] [address] [phone] PCP - General Internal Medicine 03/11/23 documented as of this encounter
--- OUTSIDE RECORDS SUMMARY | 2024-07-14 15:33 | XMS_ITS | Encounter Summary ---
Author Organization [facility] Address [address] [place] [address] Phone Care Team Providers Care Booking Clerk Name Role Phone Marquis Aguirre MD Primary Care Provider [phone] Encounter Details Date Type Department Care Team (Late st Contact Info) Description 08/12/2010 Documentation [facility] Family Medicine [address] [place], [place] [phone] Family Medicine, Physician [address] [place], [place] [address] Social History Tobacco Use Types Packs/Day Years [...] on filedocumented in this encounter Care Teams Booking Clerk Relationship Specialty Start Date End Date Marquis Aguirre MD 150 [place] [facility] DARSHANA Gallardo PCP - General 01/16/17 07/23/22 documented as of this encounter
--- OUTSIDE RECORDS SUMMARY | 2024-07-14 15:33 | XMS_ITS | Encounter Summary ---
Author Organization [facility] Address [address] [place] [address] Phone Care Team Providers Care Support Group Manager Name Role Phone Marquis Aguirre MD Primary Care Provider [phone] Encounter Details Date Type Department Care Team (Late st Contact Info) Description 08/29/2013 Documentation [facility] [place] [address] [place], [place] [phone] Family Medicine, Physician [address] [place], [place] [address] Social History Tobacco Use Types Packs/Day Years [...] on filedocumented in this encounter Care Teams Support Group Manager Relationship Specialty Start Date End Date Marquis Aguirre MD 150 [facility] DARSHANA Gallardo PCP - General 01/16/17 07/23/22 documented as of this encounter
--- OUTSIDE RECORDS SUMMARY | 2024-07-14 15:33 | XMS_ITS | Encounter Summary ---
Author Organization [employer] Address [address] [place] [facility] 7t [place] [address] Care Team Providers Care Operating Room Specialist Name Role Phone Shannon Lipscomb MD Primary Care Pro vider Reason for Visit * Reason Onset Date Comments Triage 07/14/2024 Encounter Details Date Type Department Care Team (Late st Contact Info) Description 07/14/2024 Telephone [facility] [address] [place] [address] Jessi Morgan, RN [address] [place] [address] Triage Social History Tobacco Use Types Packs/Day Years Used Date Smoking Tobacco: Never Smokeless Tobacco: Never Alcohol Use Standard Drinks/Week Comments Never 0 (1 standard drink = 0.6 oz pur e alcohol) Depression Answer Date Recorded Patient Health Questionnaire-9 Score 3 06/19/2022 Housing Stability Answer Date Recorded What is your housing situation today? I have bartologa knox 04/13/[address] you [...] encounter Miscellaneous Notes * Telephone Encounter - Jessi Morgan RN - 07/14/2024 2:40 PM EST Patient walked into red team FD upset his PE appointment was cancelled. Patient reports he did not receive a call notifying him of the appointment being cancelled. Patient requested to speak to [place] managing manager, Roxanne spoke to the patient who then reported a recent ED visit and intermittent chest pain.RN was called in to triage. Assessment: Patient presents to red team c/o intermittent chest pain x1 month and recent URI/GI virus. Chest pain symptoms have been present for 1 month and URI/GI symptoms present x4 days however now resolved. Symptoms are intermittent. Symptoms are relieved by stretching. No pattern to onset of chest pain. Patient has not seen a mechanical detailer in the past, denies having HTN or family cardiac history. Recent ED visit: Yes on 07/04/24 however LWBS. Patient reported to RN he went to [facility] for body aches, vomiting, sore throat, fever, nausea and headache however per [facility] records, patient reported one month of rectal pain and bleeding when he uses the bathroom VS as follows (if applicable): HR 88 regular rate and rhythm Resp 20 none BP 132/80 left Arm; Device: Automatic Cuff Size: regular No Known Allergies Current Outpatient Medications Medication Sig Dispense Refill Acetaminophen Extra Strength 500 MG tablet TAKE 1 TAB ORALLY EVERY 6 HOURS NEEDED FOR FEVER OR PAIN frmfvgj-bofqhrjyshgmc-yidblllt (Excedrin Migraine) 250-250-65 MG tablet Take 1 tablet by mouth every 12 (twelve) hours if needed for headaches. 1-2 tab PRN for headaches 30 tablet 2 D3 50 MCG (2000 UT) tablet Take 2,000 Units by mouth in the morning. 90 tablet 1 ibuprofen 600 MG tablet TAKE 1 TAB ORALLY 3 TIMES A DAY NEEDED FOR FEVER OR PAIN Magnesium Oxide -Mg Supplement 400 MG capsule TAKE 1 CAPSULE BY MOUTH EVERY DAY 90 capsule 0 topiramate 50 MG tablet Take 1 tablet (50 mg) by mouth Once per day. 90 tablet 0 triamcinolone (Kenalog) 0.5 % ointment APPLY THIN COAT TO AFFECTED AREA TWICE A DAY No current facility-administered medications for this visit. Patient Active Problem List Diagnosis Date Noted History of vasectomy 06/24/2022 Vitamin D deficiency 06/19/2022 Migraine without aura and without status migrainosus, not intractable 06/19/2022 Obesity (BMI 30.0-34.9) 05/25/2018 Depressive disorder 07/27/2015 Plan of care: Provider evaluation: Yes Patient scheduled to be seen in [facility] at 3pm for provider evaluation. Jessi Morgan RN documented in this encounter Plan of Treatment Upcoming Encounters Date Type Department Care Team (Late st Contact Info) Description 09/09/2024 1:45 PM EDT Office Visit [facility] [address] [place] [phone] Shannon Lipscomb MD [address] [place] [phone] documented as of this encounter Visit Diagnoses Not on filedocumented in this encounter Additional Health Concerns Assessment Noted Time PHQ-9 Depression Total Score: 3 06/19/19 2:58 PM EST documented as of this encounter Care Teams Operating Room Specialist Relationship Specialty Start Date End Date Shannon Lipscomb MD [address] [place] [phone] PCP - General Internal Medicine 03/11/23 documented as of this encounter
--- OUTSIDE RECORDS SUMMARY | 2024-07-14 15:33 | XMS_ITS | Encounter Summary ---
Author Organization [facility] Address [address] [place] [address] Phone Care Team Providers Care Government Relations Director Name Role Phone Marquis Aguirre MD Primary Care Provider [phone] Encounter Details Date Type Department Care Team (Late st Contact Info) Description 01/22/2017 Conversion Encounter [facility] [address] [place] [address] Social History Tobacco Use Types Packs/Day Years Used Date Smoking Tobacco: Never Comments:Never smoker Sex and Gender Information Value Date Recorded Sex Assigned at Not on file Legal Sex Male 4:47 PM EDT Gender Identity Not on file Sexual Orientation Not on file documented as of this encounter Plan of Treatment Not on file documented as of this encounter Visit Diagnoses Not on filedocumented in this encounter Care Teams Government Relations Director Relationship Specialty Start Date End Date Marquis Aguirre MD [address] [place] [address] PCP - General 01/16/17 07/23/22 documented as of this encounter
--- OUTSIDE RECORDS SUMMARY | 2024-07-14 15:33 | XMS_ITS | Encounter Summary ---
Author Organization [employer] Address [address] [facility] [address] [place] [address] Care Team Providers Care Central Sterile Technician Name Role Phone Shannon Lipscomb MD Primary Care Pro vider Reason for Visit * Reason Onset Date Comments Chart Prep 07/13/2024 Encounter Details Date Type Department Care Team (Late st Contact Info) Description 07/13/2024 Telephone [facility] [address] [place], [place] [phone] Jennifer Abraham MA Chart Prep Social History Tobacco Use Types Packs/Day Years [...] encounter Miscellaneous Notes * Telephone Encounter - Jennifer Abraham MA - 07/13/2024 1:10 PM EST Chart Prep Labs: not done Images: done Vaccines due: yes Referrals: pending appt Screenings: Alcohol/Substance Use Screening HIV Screening Overdue care gaps: Sbirt, SDOH, PHQ-9, Oral Health, VALERIE-7 documented in this encounter Plan of Treatment Upcoming Encounters Date Type Department Care Team (Late st Contact Info) Description 09/09/2024 1:45 PM EDT Office Visit [facility] [address] [place] [phone] Shannon Lipscomb MD [address] [place] [phone] documented as of this encounter Visit Diagnoses Not on filedocumented in this encounter Additional Health Concerns Assessment Noted Time PHQ-9 Depression Total Score: 3 06/19/19 23 2:58 PM EST documented as of this encounter Care Teams Central Sterile Technician Relationship Specialty Start Date End Date Shannon Lipscomb MD [address] [place] [phone] PCP - General Internal Medicine 03/11/23 documented as of this encounter
--- OUTSIDE RECORDS SUMMARY | 2024-07-14 15:33 | XMS_ITS | Clinical Summary ---
Author Organization [facility] Address [address] [place] [phone] Phone Care Team Providers Care Lifter Driver Name Role Phone Unavailable Primary Care Provider Unavailabl e Immunizations Immunization Administration Dates Next Due DTP 01/05/1997, 5,01/04/1993,10/15,1992 H1N1 03/22/2009 HPV, Quadrivalent 04/22/2012,10/15/2010,08/09/19 11 Hep B, ped/adol 01/04/1993,1992,1992 Hib (PRP-T) 08/26/1993, 3,1992,08/10 IPV 01/05/1997 Influenza Split 04/22/2012,02/27/2011,04/29/2010 Influenza, injectable, trivalent 03/22/2009 MMR 01/05/1997,02/04/1996 Meningococcal Conj (Menactra) MCV4P 05/26/2008 OPV 11/04/1994,1992,1992 Td (adult) (MBL), 2 Lf tetan us toxoid, PF, adsorbed 11/22/2002 Tdap 05/26/2008 Varicella 05/26/2008,04/10/2003 Family History Relation Name Status Comments Brother 1 Alive Twin brother: A DD/ADHD Brother 2 Alive Brother: Alive and well, Alive and well, Alive and well Brother 3 Alive Brother: Alive and well, Alive and well, Alive and well Brother 4 Alive Brother: Alive and well, Alive and well, Alive and well Father Alive Father: Obesity Mother Mother: Heart d isease Social History Tobacco Use Types Packs/Day Years Used Date Smoking Tobacco: Never Comments:Never smoker Sex and Gender Information Value Date Recorded Sex Assigned at Not on file Legal Sex Male 4:47 PM EDT Gender Identity Not on file Sexual Orientation Not on file Last Filed Vital Signs Vital Sign Reading Time Taken Comments Blood Pressure 102/60 12/28/2012 12:00 AM EDT Pulse 98 01/14/2011 12:00 AM EDT Temperature 36.5 ??C (97.7 ??F) 12/28/2012 12:00 AM E DT Respiratory Rate - - Oxygen Saturation - - Inhaled Oxygen Concentration - - Weight 73 kg (161 lb) 12/28/2012 12:00 AM EDT Height 171.5 cm (5' 7.5 ) 10/07/2012 12:00 AM ED T Body Mass Index 24.84 10/07/2012 12:00 AM EDT Plan of Treatment Health Maintenance Due Date Last Done Comments DTaP,Tdap,and Td Vaccines (7 - Td or Tdap) 05/26/2018 05/26/2008, 11/22/2002, 01/05/1997, Additional history exists Influenza Vaccines (#1) 2024 04/22/20 12, 02/27/2011, 04/29/2010, Additional history exists COVID-19 Vaccine ( season) 2024 Hepatitis B Vaccines Completed 01/04/1993, 1992, 1992 HIB Vaccines Completed 08/26/1993, 12/08, 1992, Additional history exists IPV Vaccines Completed 01/05/1997, 10/08, 1992, Additional history exists MMR Vaccines Completed 01/05/1997, 02/04/1996 Meningococcal Vaccine Completed 05/26/2008 Varicella Vaccines Completed 05/26/2008, 04/10/2003 HPV Vaccines Completed 04/22/2012, 10/06, 08/08/2010 Hepatitis A Vaccines Aged Out No long er eligible based on patient's age to complete this topic Men B Vaccine Aged Out No longer elig ible based on patient's age to complete this topic Pneumococcal Vaccine Aged Out No long er eligible based on patient's age to complete this topic
--- OUTSIDE RECORDS SUMMARY | 2024-07-14 15:33 | XMS_ITS | Clinical Summary ---
Author Organization [employer] Address [address] [facility] 7t [place] [address] Care Team Providers Care Hay Chopper Name Role Phone Shannon Lipscomb MD Primary Care Pro vider Allergies No known active allergies Medications Acetaminophen Extra Strength 500 MG tablet TAKE 1 TAB ORALLY EVERY 6 HOURS NEEDED FOR FEVER OR PAIN 06/05/20 22 Active D3 50 MCG (1999 UT) tabletIndicatio ns:Vitamin D deficiency Take 2,000 Units by mouth in the morning. 90 tablet 1 06/19/19 23 Active aspirin-acetami nophen-caffeine (Excedrin Migraine) 250-250-65 MG tablet Take 1 tablet by mouth every 12 (twelve) hours if needed for headaches. 1-2 tab PRN for headaches 30 tablet 2 03/31/20 24 025 Active topiramate 50 MG tabletIndicatio ns:Migraine without aura and without status migrainosus, not intractable Take 1 tablet (50 mg) by mouth Once per day. 90 tablet 05/12/20 24 Active Magnesium Oxide -Mg Supplement 400 MG capsule TAKE 1 CAPSULE BY MOUTH EVERY DAY 90 capsule 06/28/19 25 Active naproxen (Naprosyn) 500 MG tablet Take 1 tablet (500 mg) by mouth if needed in the morning and at bedtime for mild pain. 40 tablet 1 07/14/19 25 026 Active baclofen (Lioresal) 10 MG tablet Take 1 tablet (10 mg) by mouth if needed in the morning, at noon, and at bedtime for muscle spasms. 60 tablet 1 07/14/19 25 025 Active Diclofenac Sodium 1 % gel Apply 2 g topically if needed in the morning, at noon, in the evening, and at bedtime (pain). 150 g 3 07/14/19 25 Active hydrocortisone (Proctosol HC) 2.5 % rectal cream Insert into the rectum 2 times daily. 28 g 2 07/14/19 25 Active triamcinolone (Kenalog) 0.1 % ointment Apply topically if needed in the morning and at bedtime for rash for up to 14 days. 30 g 07/14/19 25 025 Active witch anisa-glycerin (Tucks) pad Apply topically if needed for irritation or hemorrhoids. 100 each 3 07/14/19 25 Active docusate sodium (Colace) 100 MG capsule Take 1 capsule (100 mg) by mouth 2 times daily. 180 capsule 1 07/14/19 25 026 Active polycarbophil (Fibercon) 625 MG tablet Take 1 tablet (625 mg) by mouth 2 times daily. 180 tablet 1 07/14/19 25 026 Active polyethylene glycol, PEG, 3350 (MiraLax) 17 GM/SCOOP powder Take 17 g by mouth if needed each day (constipation) . 527 g 1 07/14/19 25 026 Active ibuprofen 600 MG tablet TAKE 1 TAB ORALLY 3 TIMES A DAY NEEDED FOR FEVER OR PAIN 06/05/20 025 Discontinued triamcinolone (Kenalog) 0.5 % ointment APPLY THIN COAT TO AFFECTED AREA TWICE A DAY 04/24/20 22 025 Discontinued Magnesium 400 MG capsule Take 400 mg by mouth Once per day. 90 capsule 03/31/20 24 025 Discontinued Active Problems Problem Noted Date Diagnosed Date Bleeding hemorrhoids 07/14/2024 07/04/2024 History of vasectomy 06/24/2022 Vitamin D deficiency 06/19/2022 Migraine without aura and wi thout status migrainosus, not intractable 06/19/2022 Assessment & Plan (05/12/2024 3:38 PM EST): I advise to avoid migraine triggers like red wine, chocolate, cheese, strong perfumes C/w topiromate 50mg daily C/w fioricept PRN Obesity (BMI 30.0-34.9) 05/25/2018 Depressive disorder 07/27/2015 Encounters Date Type Department Care Team Description 07/14/2024 3:00 PM EST Office Visit [facility] [address] [place] [address] Right-sided chest pain (Primary Dx); Rectal bleeding; Dermatitis 07/14/[address] [address] Jessi Morgan, retail pharmacist 07/13/[address] [address] Jennifer Abraham MA r\s appt due to weather 07/13/[address] [address] Jennifer Abraham MA Chart Prep 07/04/2024 Patient Outreach [address] [address] Shannon Lipscomb MD Pre-visit Planning ((Unable to reach for PVP screening and or LVM)) 06/30/2024 Telephone [facility] [address] [place] [address] Uzma Allen MA September06/26/[address] [address] Shannon Lipscomb MD 05/12/2024 1:00 PM EST Telemedicine [address] [address] Shannon Cramer MD Migraine without aura and without status migrainosus, not intractable 05/12/[address] [address] Shannon Lipscomb MD Appointment Confirmation 05/12/[address] [phone] Shannon Cramer MD No Show 05/12/[address] [address] Shannon Lipscomb MD Appointment Request 05/12/2024 Telephone [facility] [address] [place] [address] Shannon Cramer MD from Last 3 Months Immunizations Name Administration Dates Next Due DTP 01/05/1997, 5,01/04/1993,10/15,1992 HPV, Quadrivalent 04/22/2012,10/15/2010,08/09/19 11 Hep B, Adolescent or Pediatric 01/04/1993,1992,1992 Hib (PRP-T) 08/26/1993, 3,1992,08/10 IPV 01/05/1997 Influenza injectable quadriv alent preservative free 05/25/2018 Influenza, IIV3, injectable 03/22/2009 Influenza, Split (incl. erika fied surface antigen) 04/22/2012,02/27/2011,04/29/2010 MMR 01/05/1997,02/04/1996 Meningococcal MCV4P ACYW-135 05/26/2008 Novel [id number], all formulations 03/22/2009 OPV 11/04/1994,1992,1992 TD (adult), 2 Lf tetanus tox oid, preservative free, adsorbed 11/22/2002 Tdap 05/26/2008 Varicella 05/26/2008,04/10/2003 Social History Tobacco Use Types Packs/Day Years Used Date Smoking Tobacco: Never Smokeless Tobacco: Never Tobacco Cessation:Counseling Given: Not Answered Alcohol Use Standard Drinks/Week Comments Never 0 [...] not to disclose 2021 10:17 AM EDT Last Filed Vital Signs Vital Sign Reading Time Taken Comments Blood Pressure 125/75 03/31/2024 1:21 PM EDT Pulse 89 03/31/2024 1:21 PM EDT Temperature 36.6 ??C (97.9 ??F) 03/31/2024 1:21 PM ED T Respiratory Rate 20 03/31/2024 1:21 PM EDT Oxygen Saturation 98% 03/31/2024 1:21 PM EDT Inhaled Oxygen Concentration - - Weight 111 kg (244 lb 3.2 oz) 03/31/2024 1:21 PM EDT Height 170.5 cm (5' 7.13 ) 03/31/2024 1:21 PM ED T Body Mass Index 38.1 03/31/2024 1:21 PM EDT Plan of Treatment Upcoming Encounters Date Type Department Care Team (Late st Contact Info) Description 09/09/2024 1:45 PM EDT Office Visit [facility] [address] [place] [address] Shannon Lipscomb MD [address] [place] [address] Health Maintenance Due Date Last Done Comments HIV Screening 1992 Alcohol/Substance Use Screening 2004 Family Planning (PISQ) 2007 Hepatitis C Screening 2010 DTaP/Tdap/Td Vaccines (7 - Td or Tdap) 05/26/2018 05/26/2008, 11/22/2002, 01/05/1997, Additional history exists Depression Screening 06/19/2023 06/19/2022, 06/19/19 23 SDOH Screening 06/19/2023 06/19/2022 COVID-19 Vaccine ( season) 2024 Influenza Vaccine (#1) 2024 8, 04/22/2012, 02/27/2011, Additional history exists Tobacco Screening 03/31/2025 03/31/2024 Zoster Vaccines (1 of 2) 2042 RSV Patients and Patients Aged 60 years or older (1 - 1-dose 75+ series) 2067 Hepatitis B Vaccines Completed 01/04/1993, 1992, 1992 HIB Vaccines Completed 08/26/1993, 12/08, 1992, Additional history exists IPV Vaccines Completed 01/05/1997, 10/08, 1992, Additional history exists Meningococcal Vaccine Completed 05/26/2008 HPV Vaccines Completed 04/22/2012, 10/06, 08/08/2010 Hepatitis A Vaccines Aged Out No long er eligible based on patient's age to complete this topic Pneumococcal Vaccine: Pediatrics (0 to 5 Years) and At-Risk Patients (6 to 49) Years) Aged Out No longer eligible based on patient's age to complete this topic RSV under 20 months Aged Out No longe r eligible based on patient's age to complete this topic Rotavirus Vaccines Aged Out No longer eligible based on patient's age to complete this topic Insurance [facility] C3 Care Teams Hay Chopper Relationship Specialty Start Date End Date Shannon Lipscomb MD [address] [place] [id number] PCP - General Internal Medicine 03/11/23
--- OUTSIDE RECORDS SUMMARY | 2024-07-14 15:33 | XMS_ITS | Encounter Summary ---
Author Organization [employer] Address [address] [facility] 7t [place] [address] Care Team Providers Care Synoptic Meteorologist Name Role Phone Shannon Lipscomb MD Primary Care Pro vider Reason for Referral * Cardiology (Routine) - Pending Review Specialty Diagnoses / Procedures Referred By Marielena aaron Referred To Contact Diagnoses Right-sided chest pain Procedures ECG 12 lead Tg Candelaria DO [address] [place] [address] Phone: tel: fax: Referral ID Status Reason Start Date Expiration Date V isits Requested Visits Authorized [id number] Pending Review 07/14/2024 07/14/2025 1 1 Reason for Visit * Reason Comments Chest Pain Reported pain in pas t moth during a nurse visit on Red Team; per [facility] Hx had gone to ED for same after eating [employer] (approx 1.5 yrs ago) Encounter Details Date Type Department Care Team (Late st Contact Info) Description 07/14/2024 3:00 PM EST Office Visit [facility] [address] [place], [place] [phone] Right-sided chest pain (Primary Dx); Rectal bleeding; Dermatitis Social History Tobacco Use Types Packs/Day Years [...] AM EDT documented as of this encounter Plan of Treatment Upcoming Encounters Date Type Department Care Team (Late st Contact Info) Description 09/09/2024 1:45 PM EDT Office Visit [facility] [address] [place] [phone] Shannon Lipscomb MD [address] [place] [address] Scheduled Orders Name Type Priority Associated Diagnoses Orde r Schedule T4, Free Lab Routine Right-sided chest pain Expected: 07/14/2024 (Approximate), Expires: 07/14/2025 Lipid Panel, Standard Lab Routine Right-sided chest pain Expected: 07/14/2024 (Approximate), Expires: 07/14/2025 TSH Lab Routine Right-sided chest pain Expected: 07/14/2024 (Approximate), Expires: 07/14/2025 Vitamin D, 25-Hydroxy, Total, Immunoassay Lab Routine Right-sided chest pain Expected: 07/14/2024 (Approximate), Expires: 07/14/2025 Hepatic Function Panel Lab Routine Right-sided chest pain Expected: 07/14/2024 (Approximate), Expires: 07/14/2025 Hemoglobin A1c Lab Routine Right-sided chest pain Expected: 07/14/2024 (Approximate), Expires: 07/14/2025 CBC Lab Routine Right-sided chest pain Expected: 07/14/2024, Expires: 07/14/2025 Basic Metabolic Panel Lab Routine Right-sided chest pain Expected: 07/14/2024 (Approximate), Expires: 07/14/2025 ECG 12 lead ECG Routine Right-sided chest pain Ordered: 07/14/2024 documented as of this encounter Visit Diagnoses Diagnosis Right-sided chest pain- Primary Rectal bleeding Hemorrhage of rectum and anus Dermatitis Contact dermatitis and other eczema, due to unspecified cause documented in this encounter Additional Health Concerns Assessment Noted Time PHQ-9 Depression Total Score: 3 06/19/19 23 2:58 PM EST documented as of this encounter Care Teams Synoptic Meteorologist Relationship Specialty Start Date End Date Shannon Lipscomb MD [address] [place] [address] PCP - General Internal Medicine 03/11/23 documented as of this encounter
--- OUTSIDE RECORDS SUMMARY | 2024-07-14 15:33 | XMS_ITS | Encounter Summary ---
Author Organization [employer] Address [address] [facility] [address] 7t [place] [address] Care Team Providers Care Crime Lab Technician Name Role Phone Shannon Lipscomb MD Primary Care Pro vider Reason for Visit * Reason Onset Date Comments r\s appt due to weather 07/13/2024 Encounter Details Date Type Department Care Team ([facility] st Contact Info) Description 07/13/2024 Telephone [facility] [address] [place], [place] [phone] Jennifer Abraham MA r\s appt due to weather Social History Tobacco Use Types Packs/Day Years [...] Encounter - Jennifer Abraham MA - 07/13/2024 2:02 PM EST Tc- Patient to r\s appt due to weather changes , unable to reach voice mail is not set up . documented in this encounter Plan of Treatment Upcoming Encounters Date Type Department Care Team (Late st Contact Info) Description 09/09/2024 1:45 PM EDT Office Visit [facility] [address] [place] [address] Shannon Lipscomb MD [address] [place] [address] documented as of this encounter Visit Diagnoses Not on filedocumented in this encounter Additional Health Concerns Assessment Noted Time PHQ-9 Depression Total Score: 3 06/19/19 23 2:58 PM EST documented as of this encounter Care Teams Crime Lab Technician Relationship Specialty Start Date End Date Shannon Lipscomb MD [address] [place] [address] PCP - General Internal Medicine 03/11/23 documented as of this encounter
--- OUTSIDE RECORDS SUMMARY | 2024-07-14 15:34 | XMS_ITS | Encounter Summary ---
Author Organization [employer] Address [address] [place] [address] 7t [place] [address] Care Team Providers Care Library Services Dean Name Role Phone Neha Ramos Primary Care Provider [phone] Shannon Lipscomb MD Primary Care Pro vider Reason for Visit * Reason Comments Med Change Request Encounter Details Date Type Department Care Team (Late st Contact Info) Description 06/19/2022 Refill [facility] [address] [place] [address] Neha Ramos FNP [address] [place] [address] Dept [place] [address] Migraine without aura and without status migrainosus, not intractable Social History Tobacco Use Types Packs/Day Years Used Date Smoking Tobacco: Never Smokeless Tobacco: Never Alcohol Use Standard Drinks/Week Comments Never 0 (1 standard drink = 0.6 oz pur e alcohol) Depression Answer Date Recorded Patient Health Questionnaire-9 Score 3 06/19/2022 Depression Answer Date Recorded Patient Health Questionnaire-2 Score 0 06/19/2022 Sex and Gender Information Value Date Recorded Sex Assigned at Male 04/07/2022 10:17 AM EDT Legal Sex Male 10:17 AM EDT Gender Identity Male 04/07/2022 10:17 AM EDT Sexual Orientation Choose not to disclose 2021 10:17 AM EDT COVID-19 Exposure Response Date Recorded In the last 10 days, have yo u been in contact with someone who was confirmed or suspected to have Coronavirus/COVID-19? No / Unsure 06/19/2022 2:49 PM EST documented as of this encounter Miscellaneous Notes * Telephone Encounter - MAKENNA Hebert - 06/20/2022 1:06 PM EST Medication available at [facility] pharmacy Will send med there [facility] will only fill quantity of 20 documented in this encounter Plan of Treatment Upcoming Encounters Date Type Department Care Team (Late st Contact Info) Description 09/09/2024 1:45 PM EDT Office Visit [facility] [address] [place] [address] Shannon Lipscomb MD [address] [place] [address] documented as of this encounter Visit Diagnoses Diagnosis Migraine without aura and without status migrainosus, not intractable documented in this encounter Additional Health Concerns Assessment Noted Time PHQ-9 Depression Total Score: 3 06/19/19 23 2:58 PM EST documented as of this encounter Care Teams Library Services Dean Relationship Specialty Start Date End Date Neha Ramos FNP PCP - General Family Medicine 11/20/21 03/10/23 Sahnnon Lipscomb MD [address] [place] [address] [phone] PCP - General Internal Medicine 03/11/23 documented as of this encounter
--- OUTSIDE RECORDS SUMMARY | 2024-07-14 15:34 | XMS_ITS | Encounter Summary ---
Author Organization [facility] Address [address] [place] [address] Phone Care Team Providers Care Guest Advisor Name Role Phone Marquis Aguirre MD Primary Care Provider [phone] Encounter Details Date Type Department Care Team (Late st Contact Info) Description 05/30/2010 Documentation [facility] Family Medicine [address] [place], [place] [phone] Family Medicine, Physician [address] [place], [place] [address] Social History Tobacco Use Types Packs/Day Years [...] on filedocumented in this encounter Care Teams Guest Advisor Relationship Specialty Start Date End Date Marquis Aguirre MD [address] [facility] DARSHANA Gallardo PCP - General 01/16/17 07/23/22 documented as of this encounter
--- OUTSIDE RECORDS SUMMARY | 2024-07-14 15:35 | XMS_ITS | Encounter Summary ---
Author Organization [employer] Address [address] [facility] 7t [place] [address] Care Team Providers Care Callisthenics Instructor Name Role Phone Shannon Lipscomb MD Primary Care Pro vider Reason for Visit * Reason Comments Med Refill Encounter Details Date Type Department Care Team ([facility] st Contact Info) Description 06/26/2024 Refill [facility] [address] [place] [address] Shannon Lipscomb MD [address] [place] [address] Social History Tobacco Use Types Packs/Day Years [...] the past 12 months, has t he [employer], gas, oil or water company threatened to [...] Description 09/09/2024 1:45 PM EDT Office Visit [facility] [address] [place] [address] Shannon Lipscomb MD [address] [place] [address] documented as of this encounter Visit Diagnoses Not on filedocumented in this encounter Additional Health Concerns Assessment Noted Time PHQ-9 Depression Total Score: 3 06/19/19 23 2:58 PM EST documented as of this encounter Care Teams Callisthenics Instructor Relationship Specialty Start Date End Date Shannon Lipscomb MD [address] [place] [address] PCP - General Internal Medicine 03/11/23 documented as of this encounter
--- OUTSIDE RECORDS SUMMARY | 2024-07-14 15:35 | XMS_ITS | Encounter Summary ---
Author Organization [facility] Address [address] [place] [address] Phone Care Team Providers Care Perch Mender Name Role Phone Marquis Aguirre MD Primary Care Provider Encounter Details Date Type Department Care Team (Late st Contact Info) Description 08/21/2009 Documentation [facility] Family Medicine [address] [place], [place] [phone] Family Medicine, Physician [address] [place], [place] [address] Social History Tobacco Use Types Packs/Day Years [...] on filedocumented in this encounter Care Teams Perch Mender Relationship Specialty Start Date End Date Marquis Aguirre MD 150 [facility] DARSHANA Gallardo PCP - General 01/16/17 07/23/22 documented as of this encounter
--- OUTSIDE RECORDS SUMMARY | 2024-07-14 15:35 | XMS_ITS | Encounter Summary ---
Author Organization [employer] Address [address] [facility] [address] 7[address] [place] [address] Care Team Providers Care Composite Assembler Name Role Phone Shannon Lipscomb MD Primary Care Pro vider Reason for Visit * Reason Onset Date Comments September06/30/2024 Encounter Details Date Type Department Care Team (Late st Contact Info) Description 06/30/2024 Telephone [facility] [address] [place], [place] [phone] Uzma Allen MA September Social History Tobacco Use Types Packs/Day Years [...] encounter Miscellaneous Notes * Telephone Encounter - Uzma Allen MA - 06/30/2024 1:52 PM EST T/C- Java Security Architect was unable to leave Voice Mail to return call to schedule an appointment. Recall letter sent. Appointment: Transfer Patient Note: TP Month: September With: Evangelist documented in this encounter Plan of Treatment Upcoming Encounters Date Type Department Care Team (Late st Contact Info) Description 09/09/2024 1:45 PM EDT Office Visit [facility] [address] [place] [address] Shannon Lipscomb MD [address] [place] [address] documented as of this encounter Visit Diagnoses Not on filedocumented in this encounter Additional Health Concerns Assessment Noted Time PHQ-9 Depression Total Score: 3 06/19/19 23 2:58 PM EST documented as of this encounter Care Teams Composite Assembler Relationship Specialty Start Date End Date Shannon Lipscomb MD [address] [place] [address] PCP - General Internal Medicine 03/11/23 documented as of this encounter
--- OUTSIDE RECORDS SUMMARY | 2024-07-14 15:35 | XMS_ITS | Encounter Summary ---
Author Organization [facility] Address [address] [place] [address] Phone Care Team Providers Care Salesman/Owner Name Role Phone Marquis Aguirre MD Primary Care Provider [phone] Encounter Details Date Type Department Care Team (Late st Contact Info) Description 03/12/[address] [facility] Family Medicine [address] [place], [place] [phone] Family Medicine, Physician [address] [place], [place] [phone] Social History Tobacco Use Types Packs/Day Years [...] on filedocumented in this encounter Care Teams Salesman/Owner Relationship Specialty Start Date End Date Marquis Aguirre MD 150 [facility] DARSHANA Gallardo PCP - General 01/16/17 07/23/22 documented as of this encounter
== END 2024-07-14 15:29 | disposition home or self-care (01) ==
LOC: HO.HHCL 15:28
PROVIDERS: Visit Provider Student in an Organized Health Care Education/Training Program
DX: Z13.89 Encounter for screening for other disorder (principal)

== ENCOUNTER 2024-08-11 09:23 | Outpatient (REF) | payer MEDICAID, SELFPAY ==
--- NOTE | ~2024-08-11 | US_ITS ---
EXAMINATION: US ABDOMEN HISTORY: Right side chest pain radiating to RT shoulder, R/O gallstones TECHNIQUE: Real-time grayscale ultrasound imaging of the abdomen was performed and images were reviewed. COMPARISON: There are no prior studies for comparison. FINDINGS: Liver: The right lobe of the liver measures 14.5 cm in size. The left lobe of the liver measures 10.1 cm in size. The liver demonstrates normal homogeneous echotexture. No focal mass or intrahepatic biliary ductal dilatation is identified. There is normal hepatopedal flow in the portal vein. Gallbladder and biliary tree: The gallbladder is unremarkable, without evidence of calculi, wall thickening, or pericholecystic fluid. There is no sonographic Fatima sign. The common bile duct is normal in caliber measuring 2 mm. Kidneys: The right kidney measures 10.9 cm in length. The left kidney measures 10.6 cm in length. The kidneys are unremarkable, without evidence of masses, hydronephrosis, or calculi. Pancreas: The pancreatic head, neck, and body are unremarkable. The pancreatic tail is obscured by bowel gas. Spleen: The spleen is normal in size and contour, measuring 12.8 cm in length. Abdominal aorta and inferior vena cava: The visualized portions of the abdominal aorta and inferior vena cava are normal in caliber. There is no free fluid in the abdomen. US/US abdomen complete IMPRESSION: Unremarkable abdominal ultrasound. Electronically signed by: Grant Call MD 08/12/2024 12:25 PM [facility]
--- OUTSIDE RECORDS SUMMARY | 2024-08-11 10:30 | XMS_ITS | Encounter Summary ---
Author Organization [facility] Address [address] [place] [address] Phone Care Team Providers Care Pier Hand Name Role Phone Marquis Aguirre MD Primary Care Provider [phone] Encounter Details Date Type Department Care Team (Late st Contact Info) Description 08/29/2013 Documentation [facility] Family Medicine [address] [place], [place] [phone] Family Medicine, Physician [address] [place], [place] [phone] Social History Tobacco Use Types Packs/Day Years [...] on filedocumented in this encounter Care Teams Pier Hand Relationship Specialty Start Date End Date Marquis Aguirre MD 150 [facility] DARSHANA Gallardo PCP - General 01/16/17 07/23/22 documented as of this encounter
--- OUTSIDE RECORDS SUMMARY | 2024-08-11 10:30 | XMS_ITS | Encounter Summary ---
Author Organization [facility] Address [address] [place] [address] Phone Care Team Providers Care Orthopedics Pediatric Physician Name Role Phone Marquis Aguirre MD Primary Care Provider [phone] Encounter Details Date Type Department Care Team (Late st Contact Info) Description 03/12/2012 Documentation [facility] [place] [address] [place], [place] [phone] Family Medicine, Physician [address] [place], [place] [address]31 Social History Tobacco Use Types Packs/Day Years [...] on filedocumented in this encounter Care Teams Orthopedics Pediatric Physician Relationship Specialty Start Date End Date Marquis Aguirre MD 150 [facility] DARSHANA Gallardo PCP - General 01/16/17 07/23/22 documented as of this encounter
--- OUTSIDE RECORDS SUMMARY | 2024-08-11 10:30 | XMS_ITS | Encounter Summary ---
Author Organization [facility] Address [address] [place] [address] Phone Care Team Providers Care Research Consultant Name Role Phone Marquis Aguirre MD Primary Care Provider [phone] Encounter Details Date Type Department Care Team (Late st Contact Info) Description 03/03/2011 Documentation [facility] Family Medicine [address] [place], [place] [phone] Family Medicine, Physician [address] [place], [place] [address] Social History Tobacco Use Types Packs/Day Years [...] on filedocumented in this encounter Care Teams Research Consultant Relationship Specialty Start Date End Date Marquis Aguirre MD 150 [facility] DARSHANA Gallardo PCP - General 01/16/17 07/23/22 documented as of this encounter
--- OUTSIDE RECORDS SUMMARY | 2024-08-11 10:30 | XMS_ITS | Encounter Summary ---
Author Organization [facility] Address [address] [place] [address] Phone Care Team Providers Care Crate Liner Name Role Phone Marquis Aguirre MD Primary Care Provider [phone] Encounter Details Date Type Department Care Team (Late st Contact Info) Description 08/12/2010 Documentation [facility] Family Medicine [address] [place], [place] [phone] Family Medicine, Physician [address] [place], [place] [phone] Social History Tobacco Use Types Packs/Day Years [...] on filedocumented in this encounter Care Teams Crate Liner Relationship Specialty Start Date End Date Marquis Aguirre MD 150 [facility] DARSHANA Gallardo PCP - General 01/16/17 07/23/22 documented as of this encounter
--- OUTSIDE RECORDS SUMMARY | 2024-08-11 10:30 | XMS_ITS | Clinical Summary ---
Author Organization [facility] Address [address] [place] [address] Phone Care Team Providers Care Green Chain Operator Name Role Phone Unavailable Primary Care Provider [...]
--- OUTSIDE RECORDS SUMMARY | 2024-08-11 10:30 | XMS_ITS | Encounter Summary ---
Author Organization [facility] Address [address] [place] [address] Phone Care Team Providers Care Gear Shaper Name Role Phone Marquis Aguirre MD Primary Care Provider [phone] Encounter Details Date Type Department Care Team (Late st Contact Info) Description 01/22/2017 Conversion Encounter [facility] [place] [address] [place] [address] Social History Tobacco Use Types Packs/Day Years [...] on filedocumented in this encounter Care Teams Gear Shaper Relationship Specialty Start Date End Date Marquis Aguirre MD [address] [place] [address] PCP - General 01/16/17 07/23/22 documented as of this encounter
--- OUTSIDE RECORDS SUMMARY | 2024-08-11 10:30 | XMS_ITS | Encounter Summary ---
Author Organization [facility] Address [address] [place] [address] Phone Care Team Providers Care Production Intern Name Role Phone Marquis Aguirre MD Primary Care Provider [phone] Encounter Details Date Type Department Care Team (Late st Contact Info) Description 08/21/2009 Documentation [facility] [place] Family Medicine [address] [place], [place] [phone] Family Medicine, Physician [address] [place], [place] [phone] Social History Tobacco Use Types Packs/Day Years [...] on filedocumented in this encounter Care Teams Production Intern Relationship Specialty Start Date End Date Marquis Aguirre MD 150 [facility] DARSHANA Gallardo PCP - General 01/16/17 07/23/22 documented as of this encounter
--- OUTSIDE RECORDS SUMMARY | 2024-08-11 10:30 | XMS_ITS | Encounter Summary ---
Author Organization [facility] Address [address] [place] [address] Phone Care Team Providers Care Senior Analytic Consultant Name Role Phone Marquis Aguirre MD Primary Care Provider [phone] Encounter Details Date Type Department Care Team (Late st Contact Info) Description 06/16/2011 Documentation [facility] [place] Family Medicine [address] [place], [place] [phone] Family Medicine, Physician [address] [place], [place] [phone] Social History Tobacco Use Types Packs/Day Years [...] on filedocumented in this encounter Care Teams Senior Analytic Consultant Relationship Specialty Start Date End Date Marquis Aguirre MD 150 [facility] DARSHANA Gallardo PCP - General 01/16/17 07/23/22 documented as of this encounter
== END 2024-08-11 09:24 | disposition home or self-care (01) ==
LOC: HO.US 09:23
PROVIDERS: PCP Student in an Organized Health Care Education/Training Program; Visit Provider Family Medicine
DX: R07.9 Chest pain, unspecified (principal)
CPT/HCPCS: 76700

== ENCOUNTER → 2024-08-11 09:37 | Outpatient (BNV) | payer MEDICAID, SELFPAY | PROVIDERS: PCP Student in an Organized Health Care Education/Training Program; Visit Provider Radiology Diagnostic Radiology | DX: R07.9 Chest pain, unspecified (principal) | CPT/HCPCS: 76700 ==

== ENCOUNTER 2024-08-11 11:14 | Outpatient (AMB) | payer MEDICAID, SELFPAY ==
--- NOTE | 2024-08-11 11:25 | A.OFFVIS_ITS ---
Vital Signs 08/11/24 11:34 Height 5 ft 7 in Weight 247 lb BMI 38.7 Intake Visit Reasons: rectal bleeding Intake Note: This patient presents for rectal bleeding. Pt c/o; rectal bleeding. Staffing Recruiter Required: No Accompanied by: Spouse Allergies No Known Allergies Allergy (Unverified 08/11/24 11:35) Medication List - Last Reconciled 08/11/24 by Chalo Pretyt MD [id number]-bgznocbkwilwb-axhn 50-325-40 mg 1 tab PO Q4H magnesium oxide 400 mg PO DAILY sgfocdru-akgadybye-YY 3.5-10,000-1 mg/mL-unit/mL-% 4 drps otic (ear) left Q8H 10 days topiramate 50 mg PO DAILY HPI HPI rectal bleeding: Details: 34-year-old male referred for hemorrhoid issues. He describes frequent swelling and pain with this hemorrhoids. He said he would notice small amounts of blood on wiping occasionally as well. He describes his symptoms as more of an annoyance. He denies problems with constipation. [facility] Medical History (Updated 08/11/24 @ 11:42 by Chalo Pretty MD) Hemorrhoids with complication Surgical History No pertinent past surgical history Family History Other Family history unknown Social History Alcohol intake: never Review of Systems Const Denies chills and Denies fever(s) Card Denies chest pain, Denies dyspnea and Denies dyspnea on exertion Resp Denies cough, Denies dyspnea and Denies dyspnea on exertion GI Reports hematochezia and Denies change in bowel habits Denies hematuria and Denies difficulty urinating Musc Denies back pain and Denies limited range of motion Neuro Denies focal weakness and Denies convulsions Psych Denies depression and Denies mood swings Physical Exam Vital Signs: BMI result Body Mass Index 38.7 Const General: comfortable and no acute distress Orientation/consciousness: patient oriented x3 Neck Neck: Yes no lymphadenopathy Resp Auscultation: clear to auscultation bilaterally Cardio Rhythm: regular rhythm GI Other: Rectal exam shows external hemorrhoids on both the left and right side, moderate size Palpation (GI): Soft to palpation, nontender and no guarding Neuro General: patient oriented x3 Office Procedures Anoscopy He was in flor-knife position. The anoscope was gently inserted. A full examination of the entire anal canal was done. He did have mixed internal and external hemorrhoids on both the left and right side. These did not appear to be bulky. There were no other lesions. There was no fissure. There was no induration on digital exam. There was no bleeding [id number] Assessment & Plan Assessment & Plan (1) Hemorrhoids with complication: Code(s): K64.8 - Other hemorrhoids Category: Medical Plan: He describes swelling, pain and occasional bleeding with his hemorrhoids. Current exam does show internal external hemorrhoids which do not appear to be bulky. I did offer him the option of proceeding with hemorrhoidectomy. I explained the risks including but not limited to bleeding, infections and postop pain. He says that he does not want to go with any surgical intervention for now. I did tell him that if he has any questions or concerns down the line, he is welcome to come back to the office to be re-evaluated. Coding Level of Care Code New Pt Level 3 (99880) Diagnoses Hemorrhoids with complication K64.8 CPT Codes Details - CPT: 92134-Acohrmfa ([id number])
[2024-08-11 11:34] VITALS: BMI 38.7
--- OUTSIDE RECORDS SUMMARY | 2024-08-11 13:46 | XMS_ITS | Encounter Summary ---
Author Organization [employer] Address [address] [place] [address] Care Team Providers Care Press Operator Heavy Duty Name Role Phone Shannon Lipscomb MD Primary Care Pro vider Reason for Visit * Reason Onset Date Comments r\s appt due to weather 07/13/2024 Encounter Details Date Type Department Care Team ([facility] st Contact Info) Description 07/13/2024 Telephone [facility] [address] [place], [place] [phone] Jennifer Abraham MA r\s appt due to [...] Description 09/09/2024 1:45 PM EDT Office Visit [facility] [address] [place] [address] Shannon Lipscomb MD [address] [place] [address] documented as of this encounter Visit Diagnoses Not on filedocumented in this encounter Additional Health Concerns Assessment Noted Time PHQ-9 Depression Total Score: 3 06/19/19 23 2:58 PM EST documented as of this encounter Care Teams Press Operator Heavy Duty Relationship Specialty Start Date End Date Shannon Lipscomb MD [address] [place] [address] PCP - General Internal Medicine 03/11/23 documented as of this encounter
--- OUTSIDE RECORDS SUMMARY | 2024-08-11 13:46 | XMS_ITS | Clinical Summary ---
Author Organization [employer] Address [address] [facility] 7t [place] [address] Care Team Providers Care Ux Developer Designer Name Role Phone Shannon Lipscomb MD Primary [...] daily. 28 g 2 07/14/19 25 Active witch anisa-glycerin (Tucks) pad Apply topically [...] DAY NEEDED FOR FEVER OR PAIN 06/05/20 22 025 Discontinued triamcinolone (Kenalog) 0.5 % ointment APPLY THIN COAT TO AFFECTED AREA TWICE A DAY 04/24/20 22 025 Discontinued triamcinolone (Kenalog) 0.1 % ointment Apply topically if needed in the morning and at bedtime for rash for up to 14 days. 30 g 07/14/19 25 025 Active Problems Problem Noted Date Diagnosed Date [...] Description 07/14/2024 3:00 PM EST Office Visit [facility] [address] [place] [address] Tg Candelaria DO Right-sided chest pain (Primary Dx); Rectal bleeding; Dermatitis 07/14/[address] [address] Jessi Morgan, manufacturing maintenance mechanic 07/13/[address] [address] Jennifer Abraham MA r\s appt due to weather 07/13/[address] [address] Jennifer Abraham MA Chart Prep 07/04/2024 Patient Outreach [address] [address] Shannon Lipscomb MD Pre-visit Planning ((Unable to reach for PVP screening and or LVM)) 06/30/2024 Telephone [facility] [address] [place] [address] Uzma Allen MA September Recall 06/26/[address] [address] Shannon Lipscomb MD from Last 3 Months Immunizations Name Administration Dates Next Due DTP 01/05/1997, 5,01/04/1993,10/15,1992 HPV, Quadrivalent 04/22/2012,10/15/2010,08/09/19 11 Hep B, Adolescent or Pediatric 01/04/1993,1992,1992 Hib (PRP-T) 08/26/1993, 3,1992,08/10 IPV 01/05/1997 Influenza injectable quadriv alent preservative free 05/25/2018 Influenza, IIV3, injectable 03/22/2009 Influenza, Split (incl. erika fied surface antigen) 04/22/2012,02/27/2011,04/29/2010 MMR 01/05/1997,02/04/1996 Meningococcal MCV4P ACYW-135 05/26/2008 Novel [id number], all formulations 03/22/2009 OPV 11/04/1994,1992,1992 TD (adult), [...] Sign Reading Time Taken Comments Blood Pressure 132/80 07/14/2024 4:16 PM EST with stamp pad finisher Pulse 88 07/14/2024 4:16 PM EST Temperature 36.6 ??C (97.9 ??F) 03/31/2024 1 :21 PM EDT Respiratory Rate 20 07/14/2024 4:16 PM EST Oxygen Saturation 98% 03/31/2024 1:2 1 PM EDT Inhaled Oxygen Concentration - - Weight 111 kg (244 lb 3.2 oz) 1:21 PM EDT Height 170.5 cm (5' 7.13 ) 03/31/2024 1 :21 PM EDT Body Mass Index 38.1 03/31/2024 1:21 PM EDT Plan of Treatment Upcoming Encounters Date Type Department Care Team (Late st Contact Info) Description 09/09/2024 1:45 PM EDT Office Visit [facility] [address] [place], [place] [phone] Shannon Lipscomb MD [address] [place], [place] [phone] Health Maintenance Due Date Last Done Comments HIV Screening 1992 Alcohol/Substance Use Screening 2004 Family Planning (PISQ) 2007 Hepatitis C Screening 2010 DTaP/Tdap/Td Vaccines (7 - Td or Tdap) 05/26/2018 05/26/2008, 11/22/2002, 01/05/1997, Additional history exists Depression Screening 06/19/2023 06/19/2022, 06/19/19 23 SDOH Screening 06/19/2023 06/19/2022 COVID-19 Vaccine ( season) 2024 Influenza Vaccine (#1) 2024 8, 04/22/2012, 02/27/2011, Additional history exists Tobacco Screening 07/14/2025 07/14/2024 Zoster Vaccines (1 of 2) 2042 RSV [...] patient's age to complete this topic Insurance [facility] C[facility] Care Teams Ux Developer Designer Relationship Specialty Start Date End Date Shannon Lipscomb MD [address] [place] [address] PCP - General Internal Medicine 03/11/23
--- OUTSIDE RECORDS SUMMARY | 2024-08-11 13:46 | XMS_ITS | Encounter Summary ---
Author Organization [employer] Address [address] [facility] 7t [place] [address] Care Team Providers Care Reed Press Feeder Name Role Phone Shannon Lipscomb MD Primary Care Pro vider Reason for Referral * Consultation (STAT) - Authorized Specialty Diagnoses / Procedures Referred By Marielena aaron Referred To Contact General Surgery Diagnoses Rectal bleeding Tg Candelaria DO [address] [place], [place] Phone: tel: fax: Chalo Pretty MD [address] [place] [address] [address] [place] [place], [place] Phone: tel: fax: Referral ID Status Reason Start Date Expiration Date Visits Requested Visits Authorized [id number] Authorized Specialty Services Required 07/14/2024 07/14/2025 12 12 * Imaging (Routine) - Authorized Specialty Diagnoses / Procedures Referred By Marielena aaron Referred To Contact Radiology Diagnoses Right-sided chest pain Procedures US Abdomen Complete Tg Candelaria DO [address] [place], [place] Phone: tel: fax: [address] Phone: tel: fax: Referral ID Status Reason Start Date Expiration Date V isits Requested Visits Authorized [id number] Authorized 07/14/2024 07/14/2025 1 1 * Cardiology (Routine) - Closed Specialty Diagnoses / Procedures Referred By Marielena aaron Referred To Contact Diagnoses Right-sided chest pain Procedures ECG 12 lead Tg Candelaria DO [address] [place] [address] Phone: tel: fax: [address] Phone: tel: fax: Referral ID Status Reason Start Date Expiration Date Visits Re quested Visits Authorized [id number] Closed 07/14/2024 07/14/2025 1 1 Reason for Visit * Reason Comments Chest Pain Reported pain in pas t moth during a nurse visit on Red Team; per [facility] Hx had gone to ED for same after eating [employer] (approx 1.5 yrs ago) Encounter Details Date Type Department Care Team (Late st Contact Info) Description 07/14/2024 3:00 PM EST Office Visit [facility] [address] [place], [place] [phone] Tg Candelaria DO [address] [place] [address] Right-sided chest pain (Primary Dx); Rectal bleeding; [...] AM EDT documented as of this encounter Last Filed Vital Signs Vital Sign Reading Time Taken Comments Blood Pressure 132/80 07/14/2024 4:16 PM EST wit h drapery and upholstery estimator Pulse 88 07/14/2024 4:16 PM EST Temperature - - Respiratory Rate 20 07/14/2024 4:16 PM EST Oxygen Saturation - - Inhaled Oxygen Concentration - - Weight - - Height - - Body Mass Index - - documented in this encounter Progress Notes * Tg Candelaria, - 07/14/2024 3:00 PM EST SUBJECTIVE: Jefrfy Rivera is a 34 y.o. year old male who presents for sick visit . HPI He was brought to [place] to be evaluated for multiple concerns as he arrived for his PE to learn that it had been canceled and he had not been notified. His main concern is chest pain. He has been getting intermittent episodes of R sided chest pain that can last all day. He says that the pain feels like a pressure and radiates to his R shoulder and back. He last had CP ~ 3 days ago. He denies any associated SOB, sweating, N/V or heartburn. He reports family h/o DM but no CT or CVA. He has not tried any pain meds as he doesn't like to take pills. He denies any tobacco, alcohol or drug use. He is also concerned about rectal bleeding. He says that it's been going on for the last couple of mos and is painful and hurts to sit. He has blood in toilet bowl and toilet paper with bowel movements. He has no bleeding between bowel movements. He denies any diarrhea. He reports that he has frequent bowel movements and the stool is hard and irregular. He reports straining sometimes. He went to the ED recently but never got seen because the wait was too long. He also c/o rash on his L foot for the last three weeks. He says that the area started as three separate black dots and now just one area that was surrounded by yellow yesterday. He says that the skin is peeling a little and the area is very itchy. He denies any new soaps, lotions, detergents. He has not tried any OTC meds. History provided by: Patient french translator used: No Chest Pain Pain location: R chest Pain quality: pressure Pain radiates to: R shoulder and upper back Pain severity: Moderate Onset quality: Sudden Timing: Intermittent Progression: Waxing and waning Chronicity: New Relieved by: None tried Worsened by: Movement Associated symptoms: no abdominal pain, no anorexia, no cough, no dizziness, no fever, no headache,no heartburn, no lower extremity edema, no nausea, no near- syncope, no palpitations, no PND, no shortness of breath, no vomiting and no weakness Risk factors: male sex Risk factors: no coronary artery disease, no diabetes mellitus, no high cholesterol, no hypertension and no smoking Review of Systems Constitutional: Negative for fever. Respiratory: Negative for cough and shortness of breath. Cardiovascular: Positive for chest pain. Negative for palpitations, PND and near-syncope. Gastrointestinal: Negative for abdominal pain, anorexia, heartburn, nausea and vomiting. Neurological: Negative for dizziness, weakness and headaches. Patient Active Problem List Diagnosis Depressive disorder Obesity (BMI 30.0-34.9) Vitamin D deficiency Migraine without aura and without status migrainosus, not intractable History of vasectomy Bleeding hemorrhoids No Known Allergies OBJECTIVE Vitals: 07/14/24 1616 BP: 132/80 Pulse: 88 Resp: 20 Physical Exam Constitutional: General: He is not in acute distress. Appearance: Normal appearance. Cardiovascular: Rate and Rhythm: Normal rate and regular rhythm. Heart sounds: Normal heart sounds. No murmur heard. Pulmonary: Effort: Pulmonary effort is normal. Breath sounds: Normal breath sounds. No wheezing or rhonchi. Chest: Chest wall: Tenderness present. Neurological: General: No focal deficit present. Mental Status: He is alert and oriented to person, place, and time. Cranial Nerves: No cranial nerve deficit. Motor: No weakness. Gait: Gait normal. Psychiatric: Mood and Affect: Mood normal. ASSESSMENT/PLAN Diagnoses and all orders for this visit: Right-sided chest pain Intermittent sx radiating to R shoulder/back, reproducible on exam, likely musculoskeletal -provided reassurance -treat with naprosyn and baclofen x one week then prn -trial diclofenac gel -check basic labs -referred for EKG -referred for abd US to eval for GS -advised rtc or go to ED if sx change or worsen - T4, Free; Future - Lipid Panel, Standard; Future - TSH; Future - Vitamin D, 25-Hydroxy, Total, Immunoassay; Future - Hepatic Function Panel; Future - Hemoglobin A1c; Future - CBC; Future - Basic Metabolic Panel; Future - ECG 12 lead - US Abdomen Complete; Future Rectal bleeding Likely hemorrhoidal in setting of constipation -provided reassurance -start colace and fiber supplementation bid -trial miralax prn -trial proctosol cream -advised witch anisa wipes with bowel movements -referred to for eval -advised rtc if no improvement - Referral to General Surgery; Future Dermatitis Unclear etiology -trial TAC ointment BID x 2 weeks -advised rtc if does not resolve or sx worsen, he agrees with plans F/U with PCP as scheduled or sooner prn Current Outpatient Medications: Acetaminophen Extra Strength 500 MG tablet, TAKE 1 TAB ORALLY EVERY 6 HOURS NEEDED FOR FEVER OR PAIN, Disp: , Rfl: kthhfoq-yrthgzpztbxdy-fkbihrsm (Excedrin Migraine) 250-250-65 MG tablet, Take 1 tablet by mouth every 12 (twelve) hours if needed for headaches. 1-2 tab PRN for headaches, Disp: 30 tablet, Rfl: 2 baclofen (Lioresal) 10 MG tablet, Take 1 tablet (10 mg) by mouth if needed in the morning, at noon,and at bedtime for muscle spasms., Disp: 60 tablet, Rfl: 1 D3 50 MCG (2000 UT) tablet, Take 2,000 Units by mouth in the morning., Disp: 90 tablet, Rfl: 1 Diclofenac Sodium 1 % gel, Apply 2 g topically if needed in the morning, at noon, in the evening, and at bedtime (pain)., Disp: 150 g, Rfl: 3 docusate sodium (Colace) 100 MG capsule, Take 1 capsule (100 mg) by mouth 2 times daily., Disp: 180capsule, Rfl: 1 hydrocortisone (Proctosol HC) 2.5 % rectal cream, Insert into the rectum 2 times daily., Disp: 28 g, Rfl: 2 Magnesium Oxide -Mg Supplement 400 MG capsule, TAKE 1 CAPSULE BY MOUTH EVERY DAY, Disp: 90 capsule,Rfl: 0 naproxen (Naprosyn) 500 MG tablet, Take 1 tablet (500 mg) by mouth if needed in the morning and at bedtime for mild pain., Disp: 40 tablet, Rfl: 1 polycarbophil (Fibercon) 625 MG tablet, Take 1 tablet (625 mg) by mouth 2 times daily., Disp: 180 tablet, Rfl: 1 polyethylene glycol, PEG, 3350 (MiraLax) 17 GM/SCOOP powder, Take 17 g by mouth if needed each day (constipation)., Disp: 527 g, Rfl: 1 topiramate 50 MG tablet, Take 1 tablet (50 mg) by mouth Once per day., Disp: 90 tablet, Rfl: 0 triamcinolone (Kenalog) 0.1 % ointment, Apply topically if needed in the morning and at bedtime forrash for up to 14 days., Disp: 30 g, Rfl: 0 witch anisa-glycerin (Tucks) pad, Apply topically if needed for irritation or hemorrhoids., Disp: 100 each, Rfl: 3 documented in this encounter Plan of Treatment Upcoming Encounters Date Type Department Care Team (Late st Contact Info) Description 09/09/2024 1:45 PM EDT Office Visit [facility] [address] [place] [phone] Shannon Lipscomb MD [address] [place] [address] Scheduled Orders Name Type Priority [...] ECG Routine Right-sided chest pain Ordered: 07/14/2024 US Abdomen Complete Imaging Routine Right-sided chest pain Expected: 07/14/2024, Expires: 07/14/2025 Scheduled Referrals Name Type Priority Associated Diagnoses Orde r Schedule Referral to General Surgery Outpatient Referral STAT Rectal bleeding Expected: 07/14/2024 (Approximate), Expires: 07/14/2025 documented as of this encounter Visit Diagnoses Diagnosis Right-sided chest pain- Primary Rectal bleeding Hemorrhage of rectum and anus Dermatitis Contact dermatitis and other eczema, due to unspecified cause documented in this encounter Additional Health Concerns Assessment Noted Time PHQ-9 Depression Total Score: 3 06/19/19 23 2:58 PM EST documented as of this encounter Care Teams Reed Press Feeder Relationship Specialty Start Date End Date Shannon Lipscomb MD [address] [place] [address] PCP - General Internal Medicine 03/11/23 documented as of this encounter
--- OUTSIDE RECORDS SUMMARY | 2024-08-11 13:46 | XMS_ITS | Encounter Summary ---
Author Organization [employer] Address [address] [place] [address] [address] [place] [address] Care Team Providers Care Principal Network Architect Name Role Phone Neha Ramos Primary Care Provider [phone] Shannon Lipscomb MD Primary Care Pro vider Reason for Visit * Reason Comments Med Change Request Encounter Details Date Type Department Care Team (Late st Contact Info) Description 06/19/2022 Refill [facility] [address] [place] [address] Neha Ramos FNP [address] [place] [address] [place] [address] Migraine without aura and without status migrainosus, [...] 06/20/2022 1:06 PM EST Medication available at [facility] pharmacy Will send med there [facility] will only fill quantity of 20 documented in this encounter Plan of Treatment Upcoming Encounters Date Type Department Care Team (Late st Contact Info) Description 09/09/2024 1:45 PM EDT Office Visit [facility] [address] [place] [address] Shannon Lipscomb MD [address] [place] [address] documented as of this encounter Visit Diagnoses Diagnosis Migraine without aura and without status migrainosus, not intractable documented in this encounter Additional Health Concerns Assessment Noted Time PHQ-9 Depression Total Score: 3 06/19/19 23 2:58 PM EST documented as of this encounter Care Teams Principal Network Architect Relationship Specialty Start Date End Date Neha Ramos FNP PCP - General Family Medicine 11/20/21 03/10/23 Shannon Lipscomb MD [address] [place] [phone] PCP - General Internal Medicine 03/11/23 documented as of this encounter
--- OUTSIDE RECORDS SUMMARY | 2024-08-11 13:46 | XMS_ITS | Encounter Summary ---
Author Organization [employer] Address [address] [facility] 7 [place] [address] Care Team Providers Care Roll Up Operator Name Role Phone Shannon Lipscomb MD Primary Care Pro vider Reason for Visit * Reason Onset Date Comments Appointment Request 05/12/2024 Encounter Details Date Type Department Care Team ([facility] st Contact Info) Description 05/12/2024 Telephone [facility] [address] [place] [address] Shannon Lipscomb MD [address] [place] [address] Appointment Request Social History Tobacco Use Types [...] main one. If no answer please contact [phone]. documented in this encounter Plan of Treatment Upcoming Encounters Date Type Department Care Team (Late st Contact Info) Description 09/09/2024 1:45 PM EDT Office Visit [facility] [address] [place] [address] [phone] Shannon Lipscomb MD [address] [place] [phone] documented as of this encounter Visit Diagnoses Not on filedocumented in this encounter Additional Health Concerns Assessment Noted Time PHQ-9 Depression Total Score: 3 06/19/19 2:58 PM EST documented as of this encounter Care Teams Roll Up Operator Relationship Specialty Start Date End Date Shannon Lipscomb MD [address] [place] [address] [phone] PCP - General Internal Medicine 03/11/23 documented as of this encounter
--- OUTSIDE RECORDS SUMMARY | 2024-08-11 13:46 | XMS_ITS | Encounter Summary ---
Author Organization [employer] Address [address] [facility] [address] [place] [address] Care Team Providers Care Manager Intelligence Name Role Phone Shannon Lipscomb MD Primary Care Pro vider Reason for Visit * Reason Onset Date Comments Chart Prep 07/13/2024 Encounter Details Date Type Department Care Team (Late st Contact Info) Description 07/13/2024 Telephone [facility] [address] [place], [place] [phone] Jennifer Abraham MA Chart Prep Social History [...] Description 09/09/2024 1:45 PM EDT Office Visit [facility] [address] [place] [phone] Shannon Lipscomb MD [address] [place] [phone] documented as of this encounter Visit Diagnoses Not on filedocumented in this encounter Additional Health Concerns Assessment Noted Time PHQ-9 Depression Total Score: 3 06/19/19 23 2:58 PM EST documented as of this encounter Care Teams Manager Intelligence Relationship Specialty Start Date End Date Shannon Lipscomb MD [address] [place] [id number] PCP - General Internal Medicine 03/11/23 documented as of this encounter
--- OUTSIDE RECORDS SUMMARY | 2024-08-11 13:46 | XMS_ITS | Encounter Summary ---
Author Organization [email or web address] Address [address] [facility] 7t [place] [address] Care Team Providers Care Bean Roaster Name Role Phone Shannon Lipscomb MD Primary Care Pro vider Reason for Visit * Reason Onset Date Comments Triage 07/14/2024 Encounter Details Date Type Department Care Team (Late st Contact Info) Description 07/14/2024 Telephone [facility] [address] [place] [address] Jessi Morgan, RN [address] [place] [address] Triage Social History Tobacco Use Types Packs/Day [...] cancelled. Patient requested to speak to [place] epic manager, Roxanne spoke to the patient who [...] chest pain. Patient has not seen a bezel cutter in the past, denies having HTN or family cardiac history. Recent ED visit: Yes on 07/04/24 however LWBS. Patient reported to RN he went to [facility] for body aches, vomiting, sore throat, fever, nausea and headache however per [facility] records, patient reported one month of [...] 6 HOURS NEEDED FOR FEVER OR PAIN [id number] (Excedrin Migraine) 250-250-65 MG tablet Take 1 [...] Yes Patient scheduled to be seen in [facility] at 3pm for provider evaluation. Jessi Morgan RN documented in this encounter Plan of Treatment Upcoming Encounters Date Type Department Care Team (Late st Contact Info) Description 09/09/2024 1:45 PM EDT Office Visit [facility] [address] [place] [phone] Shannon Lipscomb MD [address] [place] [phone] documented as of this encounter Visit Diagnoses Not on filedocumented in this encounter Additional Health Concerns Assessment Noted Time PHQ-9 Depression Total Score: 3 06/19/19 2:58 PM EST documented as of this encounter Care Teams Bean Roaster Relationship Specialty Start Date End Date Shannon Lipscomb MD [address] [place] [phone] PCP - General Internal Medicine 03/11/23 documented as of this encounter
== END 2024-08-11 11:46 | disposition home or self-care (01) ==
PROVIDERS: PCP Student in an Organized Health Care Education/Training Program; Visit Provider Surgery
DX: K64.8 Other hemorrhoids (principal)
CPT/HCPCS: 46600; 99203

== ENCOUNTER 2024-09-21 18:15 | Outpatient (REF) | payer MEDICAID, SELFPAY ==
--- OUTSIDE RECORDS SUMMARY | 2024-09-21 18:30 | XMS_ITS | Encounter Summary ---
Author Organization [facility] Address [address] [place] [address] Phone Care Team Providers Care Stamping Mill Tender Name Role Phone Marquis Aguirre MD Primary Care Provider [phone] Encounter Details Date Type Department Care Team (Late st Contact Info) Description 06/16/2011 Documentation [facility] [facility] [address] [place], [place] [phone] Family Medicine, Physician [address] [place], [place] [phone] Social History Tobacco Use Types Packs/Day Years [...] on filedocumented in this encounter Care Teams Stamping Mill Tender Relationship Specialty Start Date End Date Marquis Aguirre MD [address] [facility] DARSHANA Gallardo PCP - General 01/16/17 07/23/22 documented as of this encounter
--- OUTSIDE RECORDS SUMMARY | 2024-09-21 18:30 | XMS_ITS | Clinical Summary ---
Author Organization [email or web address] Address [address] [place] [address] Care Team Providers Care Hard Metals Engraver Hand Name Role Phone Shannon Lipscomb MD Primary Care Pro vider Allergies No known active allergies Medications Acetaminophen Extra Strength 500 MG tablet TAKE 1 TAB ORALLY EVERY 6 HOURS NEEDED FOR FEVER OR PAIN 06/05/20 22 Active D3 50 MCG (1999 UT) tabletIndicati ons:Vitamin D deficiency Take 2,000 Units by mouth in the morning. 90 tablet 1 06/19/19 23 Active aspirin-acetam inophen-caffei ne (Excedrin Migraine) 250-250-65 MG tablet Take 1 tablet by mouth every 12 (twelve) hours if needed for headaches. 1-2 tab PRN for headaches 30 tablet 2 03/31/20 24 025 Active Magnesium Oxide -Mg Supplement 400 MG capsule TAKE 1 CAPSULE BY MOUTH EVERY DAY 90 capsule 06/28/19 25 Active hydrocortisone (Proctosol HC) 2.5 % rectal cream Insert into the rectum 2 times daily. 28 g 2 07/14/19 25 Active witch anisa-glycerin (Tucks) pad Apply topically if needed for irritation or hemorrhoids. 100 each 3 07/14/19 25 Active docusate sodium (Colace) 100 MG capsule Take 1 capsule (100 mg) by mouth 2 times daily. 180 capsule 1 07/14/19 25 026 Active butalbital-berry taminophen-caf feine 50-325-40 MG tabletIndicati ons:Migraine without aura and without status migrainosus, not intractable TAKE 1 TABLET BY MOUTH EVERY 4 HOURS. 15 tablet 1 08/31/19 25 Active topiramate 50 MG tabletIndicati ons:Migraine without aura and without status migrainosus, not intractable Take 1 tablet (50 mg) by mouth every 12 (twelve) hours. 60 tablet 2 09/10/19 25 Active fluticasone (Flonase Allergy Relief) 50 MCG/ACT nasal sprayIndicatio ns:Cough in adult patient Administer 1 spray into each nostril Once per day. Shake gently. Before first use, prime pump. After use, clean tip and replace cap. 16 g 1 09/22/19 026 Active topiramate 50 MG tabletIndicati ons:Migraine without aura and without status migrainosus, not intractable Take 1 tablet (50 mg) by mouth Once per day. 90 tablet 05/12/20 025 Discontinued(Re order (will not trigger notification to Pharmacy)) butalbital-berry taminophen-caf feine 50-325-40 MG tabletIndicati ons:Migraine without aura and without status migrainosus, not intractable Take 1 tablet by mouth every 4 (four) hours. 15 tablet 1 05/12/20 24 025 Discontinued naproxen (Naprosyn) 500 MG tablet Take 1 tablet (500 mg) by mouth if needed in the morning and at bedtime for mild pain. 40 tablet 1 07/14/19 025 Discontinued(Ot her) baclofen (Lioresal) 10 MG tablet Take 1 tablet (10 mg) by mouth if needed in the morning, at noon, and at bedtime for muscle spasms. 60 tablet 1 07/14/19 025 Discontinued(Ot her) Diclofenac Sodium 1 % gel Apply 2 g topically if needed in the morning, at noon, in the evening, and at bedtime (pain). 150 g 3 07/14/19 025 Discontinued(Ot her) polycarbophil (Fibercon) 625 MG tablet Take 1 tablet (625 mg) by mouth 2 times daily. 180 tablet 1 07/14/19 025 Discontinued(Ot her) polyethylene glycol, PEG, 3350 (MiraLax) 17 GM/SCOOP powder Take 17 g by mouth if needed each day (constipation ). 527 g 1 07/14/19 025 Discontinued(Ot her) Active Problems Problem Noted Date Diagnosed Date [...] Encounters Date Type Department Care Team Description 09/21/2024 2:40 PM EDT Office Visit [facility] [address] [place] [address] [phone] Valencia Mason NP Elevated blood pressure reading (Primary Dx); Cough in adult patient 09/21/2024 Telephone [facility] [address] [place] [address] [phone] Shannon Lipscomb MD Nurse Triage 09/13/2024 Orders Only [address] [phone] Shannon Lipscomb MD Migraine without aura and without status migrainosus, not intractable (Primary Dx); Nonintractable headache, unspecified chronicity pattern, unspecified headache type 09/13/2024 Telephone [facility] [address] [place] [address] [phone] Shannon Lipscomb MD MRI BRAIN ORDER 09/09/2024 1:45 PM EDT Office Visit [facility] [address] [place] [phone] Shannon Lipscomb MD Morbid obesity (CMS/HCC) (Primary Dx); Dietary counseling; Exercise counseling; Chronic nonintractable headache, unspecified headache type; Annual physical exam; Migraine without aura and without status migrainosus, not intractable; Encounter for immunization 09/09/[address] [address] Shannon Lipscomb MD Appointment Request 09/09/2024 Travel 08/30/2024 Patient Outreach [facility] [address] [place] [address] Shannon Lipscomb MD Pre-visit Planning (Pre-visit planning - LVM ) 08/30/[address] [phone] Shannon Lipscomb MD chart prep 08/29/2024 Refill [facility] [address] [place] [address] Shannon Cramer MD Migraine without aura and without status migrainosus, not intractable 08/19/2024 Population Health Risk Score [facility] () [address] [phone] Provider, Population Health Generic 07/14/2024 3:00 PM EST Office Visit [facility] [address] [place] [address] Tg Candelaria DO Right-sided chest pain (Primary Dx); Rectal bleeding; Dermatitis 07/14/[address] [address] Jessi Morgan, director of learning 07/13/[address] [address] Jennifer Abraham MA r\s appt due to weather 07/13/[address] [address] Jennifer Abraham MA Chart Prep 07/04/2024 Patient Outreach [facility] [address] [place] [phone] Shannon Lipscomb MD Pre-visit Planning ((Unable to reach for PVP screening and or LVM)) 06/30/2024 Telephone [facility] [address] [place] [address] Uzma Allen MA September Recall 06/26/2024 Refill [facility] [address] [place] [address] Shannon Lipscomb MD from Last 3 Months Immunizations Name Administration Dates Next Due DTP 01/05/1997, 5,01/04/1993,10/15,1992 HPV, Quadrivalent 04/22/2012,10/15/2010,08/09/19 11 Hep B, Adolescent or Pediatric 01/04/1993,1992,1992 Hib (PRP-T) 08/26/1993, 3,1992,08/10 IPV 01/05/1997 Influenza injectable quadriv alent preservative free 05/25/2018 Influenza, IIV3, injectable 03/22/2009 Influenza, Split (incl. erika fied surface antigen) 04/22/2012,02/27/2011,04/29/2010 MMR 01/05/1997,02/04/1996 Meningococcal MCV4P ACYW-135 05/26/2008 Novel [id number]-[id number], all formulations 03/22/2009 OPV, Trivalent 11/04/1994,1992,1992 TD (adult), 2 Lf tetanus tox oid, preservative free, adsorbed 11/22/2002 Tdap 09/09/2024,05/26/2008 Varicella 05/26/2008,04/10/2003 Family History Medical History Relation Name Comments DM2 Father Multiple sclerosis Mother Relation Name Status Comments Father Mother Social History Tobacco Use Types Packs/Day Years Used Date Smoking Tobacco: Never Smokeless Tobacco: Never Tobacco Cessation:Counseling Given: Not Answered Alcohol Use Standard Drinks/Week Comments Never 0 (1 standard drink = 0.6 oz pur e alcohol) Depression Answer Date Recorded Patient Health Questionnaire-9 Score 0 09/09/2024 Patient Health Questionnaire-9 Score 0 09/09/2024 Last PHQ-9: Questionnaire Data Not on file 0 09/09/2024 Housing Stability Answer Date Recorded What is your housing situation today? I have bartolo knox 09/09/[address] you li ve. Do you have problems with any of the following? None of the above 09/09/2024 Food Insecurity Answer Date Recorded Within the past 12 months, y ou worried that your food would run out before you got money to buy more: Never True 09/09/2024 Within the past 12 months,th e food you bought just didn't last and you didn't have enough money to get more: Never True 09/2024 Transportation Answer Date Recorded In the past 12 months, has l ack of transportation kept you from medical appts, meetings, work or from getting things needed for daily living? No 09/09/2024 Utilities Answer Date Recorded In the past 12 months, has t he electric, gas, oil or water company threatened to shut off services in your home? No 09/09/2024 Depression Answer Date Recorded Patient Health Questionnaire-2 Score 0 09/09/2024 Internet Access Answer Date Recorded Internet Access Q1 Yes 09/09/2024 Internet Access Q2 Not on file 09/09/2024 Sex and Gender Information Value Date Recorded Sex Assigned at Male 04/07/2022 10:17 AM EDT Legal Sex Male 10:17 AM EDT Gender Identity Male 04/07/2022 10:17 AM EDT Sexual Orientation Straight 09/09/2024 2: 33 PM EDT Last Filed Vital Signs Vital Sign Reading Time Taken Comments Blood Pressure 122/70 09/21/2024 3:21 PM EDT Pulse 99 09/21/2024 2:39 PM EDT Temperature 36.9 ??C (98.5 ??F) 09/21/2024 2:39 PM ED T Respiratory Rate 20 09/09/2024 1:57 PM EDT Oxygen Saturation 96% 09/21/2024 2:39 PM EDT room air Inhaled Oxygen Concentration - - Weight 115 kg (253 lb) 09/09/2024 1:57 PM EDT Height 170.5 cm (5' 7.13 ) 09/09/2024 1:57 PM ED T Body Mass Index 39.47 09/09/2024 1:57 PM EDT Plan of Treatment Health Maintenance Due Date Last Done Comments HIV Screening 1992 Family Planning (PISQ) 2007 Hepatitis C Screening 2010 COVID-19 Vaccine ( season) 2024 Influenza Vaccine (#1) 2024 8, 04/22/2012, 02/27/2011, Additional history exists Lipid Panel 09/04/2025 09/04/2020 Alcohol/Substance Use Screening 09/09/2025 09/09/2024 Depression Screening 09/09/2025 09/09/2024, 09/10/19 SDOH Screening 09/09/2025 09/09/2024 Tobacco Screening 09/21/2025 09/21/2024 DTaP/Tdap/Td Vaccines (8 - Td or Tdap) 09/09/2034 09/09/2024, 05/26/2008, 11/22/2002, Additional history exists Zoster Vaccines (1 of 2) 2042 RSV [...] on patient's age to complete this topic Procedures Procedure Name Priority Date/Time Associated Diagnosis Comments POCT INFLUENZA A (ID NOW RAPID MOLECULAR) Routine 09/21/2024 3:01 PM EDT Cough in adult patient POCT INFLUENZA B (ID NOW RAPID MOLECULAR) Routine 09/21/2024 3:00 PM EDT Cough in adult patient POCT RAPID STREP A Routine 09/21/2024 2: 56 PM EDT Cough in adult patient POCT RAPID COVID ANTIGEN Routine 09/21/2024 2:55 PM EDT Cough in adult patient US ABDOMEN COMPLETE Routine 08/11/2024 9 :37 AM EST Right-sided chest pain LIPID PANEL, STANDARD Routine 09/04/2020 1:06 PM EDT from Last 3 Months or Most Recently Relevant to Health Maintenance Results * Influenza A (ID NOW Rapid Molecular) (09/21/2024 3:01 PM EDT) [facility] Influenza A Negative Negative, Indeterminate [facility] Swab 09/21/2024 3:01 PM EDT [facility] Appra BOILER ROOM OPERATOR POINT OF CARE TEST ENTER/EDIT O RDERABLES Final Result Performing Organization Address [facility]/ZIP Co de Phone Number [facility] [address] [place] [phone] * Influenza B (ID NOW Rapid Molecular) (09/21/2024 3:00 PM EDT) [facility] Influenza B Negative Negative, Indeterminate [facility] Swab 09/21/2024 3:00 PM EDT [facility] BOILER ROOM OPERATOR POINT OF CARE TEST ENTER/EDIT O RDERABLES Final Result Performing Organization Address [facility]/ZIP Co de Phone Number [facility] [address] [place] [phone] * POCT rapid strep A manually resulted (09/21/2024 2:56 PM EDT) [facility] Rapid Strep A Screen Negative Negative, None Detected Swab 09/21/2024 2:56 PM EDT [facility] Appra BOILER ROOM OPERATOR POINT OF CARE TEST ENTER/EDIT O RDERABLES Final Result * POCT Rapid COVID Ag (09/21/2024 2:55 PM EDT) Rapid COVID Ag Negative Swab 09/21/2024 2:55 PM EDT us Valencia Appram BOILER ROOM OPERATOR POINT OF CARE TEST ENTER/EDIT O RDERABLES Final Result * US Abdomen Complete (08/11/2024 9:37 AM EST) Anatomical Region Laterality Modality Abdomen Ultrasound 08/11/2024 9:37 AM EST Narrative 08/12/2024 12:28 PM EST ? [facility] ?[address] ?[place] [address] ? Ultrasound Report ? Signed ? Patient: Nicole Jaquez,Jeffry ?MR#: ?? [id number] ? : 1990 ?Acct:[id number] ? Age/Sex: 34 / M ?ADM Date: 08/11/24 ? Loc: HO.US ? Attending Dr: Tg Candelaria DO ? Ordering Physician: Tg Candelaria DO ?? Date of Service: 08/11/24 ?? Procedure(s): US abdomen complete ?? Accession Number(s): [id number] ? cc: Tg Candelaria DO; Shannon Lipscomb MD ? EXAMINATION: ??US ABDOMEN ? HISTORY: Right side chest pain radiating to RT shoulder, R/O gallstones ? TECHNIQUE: Real-time grayscale ultrasound imaging of the abdomen was ?? performed and images were reviewed. ? COMPARISON: There are no prior studies for comparison. ? FINDINGS: ?? Liver: ??The right lobe of the liver measures 14.5 cm in size. The left ?? lobe of the liver measures 10.1 cm in size. The liver demonstrates ?? normal homogeneous echotexture. ??No focal mass or intrahepatic biliary ?? ductal dilatation is identified. ??There is normal hepatopedal flow in ?? the portal vein. ? Gallbladder and biliary tree: The gallbladder is unremarkable, without ?? evidence of calculi, wall thickening, or pericholecystic fluid. ??There ?? is no sonographic Fatima sign. ??The common bile duct is normal in ?? caliber measuring 2 mm. ? Kidneys: ??The right kidney measures 10.9 cm in length. The left kidney ?? measures 10.6 cm in length. ??The kidneys are unremarkable, without ?? evidence of masses, hydronephrosis, or calculi. ? Pancreas: The pancreatic head, neck, and body are unremarkable. The ?? pancreatic tail is obscured by bowel gas. ? Spleen: The spleen is normal in size and contour, measuring 12.8 cm in ?? length. ? Abdominal aorta and inferior vena cava: The visualized portions of the ?? abdominal aorta and inferior vena cava are normal in caliber. ? There is no free fluid in the abdomen. ? US/US abdomen complete ?? IMPRESSION: ? Unremarkable abdominal ultrasound. ? Electronically signed by: ??Grant Call MD ??08/12/2024 12:25 PM EST ? Dictated By: ?Grant Call MD ? Signed By: ?<Electronically signed by Grant Call MD in OV> ?08/12/24 1225 ? DD/ 0937 ? TD/TT: 08/11/24 0954 ? Highway Technician: ? Procedure Note Chloe, Image - 08/12/2024 [place] [address] Ultrasound Report Signed Patient: Ronal Kam#: [id number] : 1990Acct:[id number] Age/Sex: 34 / MADM Date: 08/11/24 Loc: HO.US Attending Dr: Tg Candelaria DO Ordering Physician: Tg Candelaria DO Date of Service: 08/11/24 Procedure(s): US abdomen complete Accession Number(s): [id number] cc: Tg Candelaria DO; Shannon Lipscomb MD EXAMINATION: US ABDOMEN HISTORY: Right side chest pain radiating to RT shoulder, R/O gallstones TECHNIQUE: Real-time grayscale ultrasound imaging of the abdomen was performed and images were reviewed. COMPARISON: There are no prior studies for comparison. FINDINGS: Liver: The right lobe of the liver measures 14.5 cm in size. The left lobe of the liver measures 10.1 cm in size. The liver demonstrates normal homogeneous echotexture. No focal mass or intrahepatic biliary ductal dilatation is identified. There is normal hepatopedal flow in the portal vein. Gallbladder and biliary tree: The gallbladder is unremarkable, without evidence of calculi, wall thickening, or pericholecystic fluid. There is no sonographic Fatima sign. The common bile duct is normal in caliber measuring 2 mm. Kidneys: The right kidney measures 10.9 cm in length. The left kidney measures 10.6 cm in length. The kidneys are unremarkable, without evidence of masses, hydronephrosis, or calculi. Pancreas: The pancreatic head, neck, and body are unremarkable. The pancreatic tail is obscured by bowel gas. Spleen: The spleen is normal in size and contour, measuring 12.8 cm in length. Abdominal aorta and inferior vena cava: The visualized portions of the abdominal aorta and inferior vena cava are normal in caliber. There is no free fluid in the abdomen. US/US abdomen complete IMPRESSION: Unremarkable abdominal ultrasound. Electronically signed by: Grant Call MD 08/12/2024 12:25 PM [facility] Dictated By: Grant Call MD Signed By: <Electronically signed by Grant Call MD in OV> 08/12/24 1225 DD/ 0937 TD/TT: 08/11/[address] Technician: us Tg Candelaria DO IMG US PROCEDURES Final Resu lt * (ABNORMAL) LIPID PANEL, STANDARD (09/04/2020 1:06 PM EDT) Chol/HDLC Ratio 4.4 <5.0 (calc) [facility] Cholesterol, Total 163 <200 mg/dL [facility] HDL Cholesterol 37(L) > OR = 40 mg/dL [facility] LDL Cholesterol 104(H) mg/dL (calc) [facility] Comment: Reference range: <100 ?? Desirable range <100 mg/dL for primary prevention; ?? <70 mg/dL for patients with CHD or diabetic patients ?? with > or = 2 CHD risk factors. ?? LDL-C is now calculated using the Louis-Valencia ?? calculation, which is a validated novel method providing ?? better accuracy than the Friedewald equation in the ?? estimation of LDL-C. ?? Louis DOYLE et al. EMELIA. 2013;310(19): 6834-1825 ?? (http://[employer].LogicTree/faq/IYA279) Non-HDL Cholesterol 126 <130 mg/dL (calc) [facility] Comment: For patients with diabetes plus 1 major ASCVD risk ?? factor, treating to a non-HDL-C goal of <100 mg/dL ?? (LDL-C of <70 mg/dL) is considered a therapeutic ?? option. Triglycerides 120 <150 mg/dL [facility] 09/04/2020 1:06 PM EDT us Mckayla Simpson BINDER OPERATOR LAB BLOOD ORDERABLES Final Result [facility] [address] from Last 3 Months or Most Recently Relevant to Health Maintenance Insurance [facility] C3 Care Teams Hard Metals Engraver Hand Relationship Specialty Start Date End Date Shannon Lipscomb MD [address] [place] [address] [phone] PCP - General Internal Medicine 03/11/23
--- OUTSIDE RECORDS SUMMARY | 2024-09-21 18:30 | XMS_ITS | Encounter Summary ---
Author Organization [facility] Address [address] [place] [address] Phone Care Team Providers Care Monorail Helper Name Role Phone Marquis Aguirre MD Primary Care Provider Encounter Details Date Type Department Care Team (Late st Contact Info) Description 08/29/2013 Documentation [facility] Family Medicine [address] [place], [place] [phone] Family Medicine, Physician [address] [place], [place] [phone] Social History Tobacco Use Types Packs/Day Years [...] on filedocumented in this encounter Care Teams Monorail Helper Relationship Specialty Start Date End Date Marquis Aguirre MD [address] [facility] DARSHANA Gallardo PCP - General 01/16/17 07/23/22 documented as of this encounter
--- OUTSIDE RECORDS SUMMARY | 2024-09-21 18:30 | XMS_ITS | Encounter Summary ---
Author Organization [facility] Address [address] [place] [address] Phone Care Team Providers Care Belt Maker Name Role Phone Marquis Aguirre MD Primary Care Provider [phone] Encounter Details Date Type Department Care Team (Late st Contact Info) Description 01/22/2017 Conversion Encounter [facility] [address] [place] [address] Social History Tobacco Use Types Packs/Day Years [...] on filedocumented in this encounter Care Teams Belt Maker Relationship Specialty Start Date End Date Marquis Aguirre MD [address] [place] [address] PCP - General 01/16/17 07/23/22 documented as of this encounter
--- OUTSIDE RECORDS SUMMARY | 2024-09-21 18:30 | XMS_ITS | Encounter Summary ---
Author Organization [employer] Address [address] [facility] 7 [place] [address] Care Team Providers Care Goodwill Representative Name Role Phone Shannon Lipscomb MD Primary Care Pro vider Reason for Visit * Reason Onset Date Comments Nurse Triage 09/21/2024 Encounter Details Date Type Department Care Team ([facility] st Contact Info) Description 09/21/2024 Telephone [facility] [address] [place] [address] Shannon Lipscomb MD [address] [place] [address] Nurse Triage Social History Tobacco Use Types Packs/Day [...] Orientation Straight 09/09/2024 2: 33 PM EDT documented as of this encounter Miscellaneous Notes * Telephone Encounter - Lelia Mckeon RN - 09/21/2024 1:55 PM EDT Triage call Pt reports that Pt is already in [facility] and in process of registration. Triage ended. Protocol Used: No Contact or Duplicate Contact Call (Adult) Protocol-Based Disposition: No Contact Call Positive Triage Question: * Patient already left for the hospital/clinic * All higher-acuity triage questions were negative * Telephone Encounter - Ramona Gonzales - 09/21/2024 1:46 PM EDT Symptoms: Headache, Sore Throat Outcome: Talk to a nurse or provider within 15 minutes Reason: Can't move the neck normally The caller accepted this outcome. documented in this encounter Plan of Treatment Not on file documented as of this encounter Visit Diagnoses Not on filedocumented in this encounter Additional Health Concerns Assessment Noted Time PHQ-9 Depression Total Score: 0 09/10/19 25 1:58 PM EDT documented as of this encounter Care Teams Goodwill Representative Relationship Specialty Start Date End Date Shannon Lipscomb MD [address] [place] [phone] PCP - General Internal Medicine 03/11/23 documented as of this encounter
--- OUTSIDE RECORDS SUMMARY | 2024-09-21 18:30 | XMS_ITS | Encounter Summary ---
Author Organization [facility] Address [address] [place] [address] Phone Care Team Providers Care Coil Assembler Name Role Phone Marquis Aguirre MD Primary Care Provider [phone] Encounter Details Date Type Department Care Team (Late st Contact Info) Description 03/03/2011 Documentation [facility] [place] [address] [place], [place] [phone] Family Medicine, Physician [address] [place] [address] Social History Tobacco Use Types Packs/Day Years [...] on filedocumented in this encounter Care Teams Coil Assembler Relationship Specialty Start Date End Date Marquis Aguirre MD [address] [facility] DARSHANA Gallardo PCP - General 01/16/17 07/23/22 documented as of this encounter
--- OUTSIDE RECORDS SUMMARY | 2024-09-21 18:30 | XMS_ITS | Clinical Summary ---
Author Organization [facility] Address [address] [place] [phone] Phone Care Team Providers Care Assignment Clerk Name Role Phone Unavailable Primary Care Provider [...]
--- OUTSIDE RECORDS SUMMARY | 2024-09-21 18:30 | XMS_ITS | Encounter Summary ---
Author Organization [employer] Address [address] [facility] [address] [place] [address] Care Team Providers Care Student Financial Aid Manager Name Role Phone Shannon Lipscomb MD Primary Care Pro vider Encounter Details Date Type Department Care Team (Late st Contact Info) Description 09/21/2024 2:40 PM EDT Office Visit [facility] [address] [place] [address] Valencia Mason NP [address] [place] [address] Elevated blood pressure reading (Primary Dx); Cough in adult patient Social History Tobacco Use Types Packs/Day Years [...] PM EDT documented as of this encounter Last Filed Vital Signs Vital Sign Reading Time Taken Comments Blood Pressure 122/70 09/21/2024 3:21 PM EDT Pulse 99 09/21/2024 2:39 PM EDT Temperature 36.9 ??C (98.5 ??F) 09/21/2024 2:39 PM ED T Respiratory Rate - - Oxygen Saturation 96% 09/21/2024 2:39 PM EDT room air Inhaled Oxygen Concentration - - Weight - - Height - - Body Mass Index - - documented in this encounter Progress Notes * Chema Johnson MA - 09/21/2024 2:40 PM EDT * Valencia Mason NP - 09/21/2024 2:40 PM EDT SUBJECTIVE: Jeffry Rivera is a 34 y.o. male who presents to the [facility] for a sick visit. Denies recent illness, injury, or hospitalization. HPI Complains of cough, feels like his body is boiling (did not check his temp at the time), sore throat, neck pain and headache. Notes symptom onset 3 days ago. States he has some difficulty swallowing and burning in his throat. Reports increased sweating. Says his daughters have been sick with strep and another viral infection. Headache he says feels like the typical migraines he experiences. Review of Systems Constitutional: Negative. Negative for chills and fever. HENT: Positive for rhinorrhea and sore throat. Negative for congestion. Eyes: Negative for discharge. Respiratory: Positive for cough. Negative for chest tightness and shortness of breath. Cardiovascular: Negative for chest pain and palpitations. Gastrointestinal: Negative. Negative for abdominal pain, constipation, diarrhea and nausea. Genitourinary: Negative. Negative for difficulty urinating. Musculoskeletal: Negative. Negative for arthralgias and myalgias. Skin: Negative for rash. Neurological: Negative. Negative for dizziness, speech difficulty, light- headedness and headaches. Hematological: Negative. Psychiatric/Behavioral: Negative for behavioral problems, confusion, self-injury and suicidal ideas. The patient is not nervous/anxious. OBJECTIVE: Vitals: 09/21/24 1439 09/21/24 1521 BP: (!) 145/84 122/70 BP Location: Left arm Right arm Patient Position: Sitting Sitting BP Cuff Size: Large adult Adult long Pulse: 99 Temp: 98.5 ??F (36.9 ??C) TempSrc: Oral SpO2: 96% Patient Active Problem List Diagnosis Depressive disorder Obesity (BMI 30.0-34.9) Vitamin D deficiency Migraine without aura and without status migrainosus, not intractable History of vasectomy Bleeding hemorrhoids Office Visit on 09/21/2024 Component Date Value Ref Range Status Influenza A 09/21/2024 Negative Negative, Indeterminate Final Influenza B 09/21/2024 Negative Negative, Indeterminate Final Rapid Strep A Screen 09/21/2024 Negative Negative, None Detected Final Rapid COVID Ag 09/21/2024 Negative Final Physical Exam Vitals reviewed. Constitutional: General: He is not in acute distress. Appearance: Normal appearance. He is not ill-appearing. HENT: Head: Normocephalic and atraumatic. Right Ear: External ear normal. Left Ear: External ear normal. Nose: Nose normal. Right Sinus: No maxillary sinus tenderness or frontal sinus tenderness. Left Sinus: No frontal sinus tenderness. Mouth/Throat: Pharynx: Oropharynx is clear. Uvula midline. No posterior oropharyngeal erythema or uvula swelling. Eyes: General: No scleral icterus. Extraocular Movements: Extraocular movements intact. Cardiovascular: Rate and Rhythm: Normal rate and regular rhythm. Pulses: Normal pulses. Heart sounds: Normal heart sounds. Pulmonary: Effort: Pulmonary effort is normal. No respiratory distress. Musculoskeletal: General: Normal range of motion. Cervical back: Normal range of motion and neck supple. Lymphadenopathy: Cervical: No cervical adenopathy. Skin: General: Skin is warm and dry. Neurological: General: No focal deficit present. Mental Status: He is alert and oriented to person, place, and time. Gait: Gait normal. Psychiatric: Mood and Affect: Mood normal. Behavior: Behavior normal. Assessment/Plan Diagnoses and all orders for this visit: Elevated blood pressure reading Comments: -repeat BP w/n acceptable ranges -discussed lifestyle and dietary changes Cough in adult patient Comments: -presentation suggestive of uri -POCT flu, COVID, flu negative; repeat swabs obtained and sent to lab for confirmation -salt water gargles, drink tea with honey & lemon, suck lozenge -advised increase fluid intake, rest, tylenol for pain/fever -come to walk-in center if develop fever or symptoms worsen -work note provided excusing patient for today Orders: - Influenza A (ID NOW Rapid Molecular) - Influenza B (ID NOW Rapid Molecular) - POCT rapid strep A manually resulted - POCT Rapid COVID Ag - Respiratory Viral Panel PCR - Culture, Throat - fluticasone (Flonase Allergy Relief) 50 MCG/ACT nasal spray; Administer 1 spray into each nostrilOnce per day. Shake gently. Before first use, prime pump. After use, clean tip and replace cap. documented in this encounter Plan of Treatment Scheduled Orders Name Type Priority Associated Diagnoses Orde r Schedule Respiratory Viral Panel PCR Lab Routine Cough in adult patient Ordered: 09/21/2024 Culture, Throat Microbiology Routine Cough in adult patient Ordered: 09/21/2024 documented as of this encounter Procedures Procedure Name Priority Date/Time Associated Diagnosis [...] 2:55 PM EDT Cough in adult patient documented in this encounter Results * Influenza A (ID NOW Rapid Molecular) (09/21/2024 3:01 PM EDT) [facility] Influenza A Negative Negative, Indeterminate [facility] Swab 09/21/2024 3:01 PM EDT [facility] Appra REJOGGER POINT OF CARE TEST ENTER/EDIT O RDERABLES Final Result Performing Organization Address City/[facility]/ZIP Co de Phone Number [facility] [address] [place] [phone] * Influenza B (ID NOW Rapid Molecular) (09/21/2024 3:00 PM EDT) [facility] Influenza B Negative Negative, Indeterminate [facility] Swab 09/21/2024 3:00 PM EDT [facility] Appra REJOGGER POINT OF CARE TEST ENTER/EDIT O RDERABLES Final Result Performing Organization Address [facility]/ZIP Co de Phone Number [facility] [address] [place] [phone] * POCT rapid strep A manually resulted (09/21/2024 2:56 PM EDT) [facility] Rapid Strep A Screen Negative Negative, None Detected Swab 09/21/2024 2:56 PM EDT [facility] Appra REJOGGER POINT OF CARE TEST ENTER/EDIT O RDERABLES Final Result * POCT Rapid COVID Ag (09/21/2024 2:55 PM EDT) [facility] Rapid COVID Ag Negative Swab 09/21/2024 2:55 PM EDT Valencia Mason REJOGGER POINT OF CARE TEST ENTER/EDIT O RDERABLES Final Result documented in this encounter Visit Diagnoses Diagnosis Elevated blood pressure reading- Primary Elevated blood pressure reading without diagnosis of hypertension Cough in adult patient documented in this encounter Additional Health Concerns Assessment Noted Time PHQ-9 Depression Total Score: 0 09/10/19 25 1:58 PM EDT documented as of this encounter Care Teams Student Financial Aid Manager Relationship Specialty Start Date End Date Shannon Lipscomb MD [address] [place] [id number] PCP - General Internal Medicine 03/11/23 documented as of this encounter
--- OUTSIDE RECORDS SUMMARY | 2024-09-21 18:30 | XMS_ITS | Encounter Summary ---
Author Organization [employer] Address [address] [facility] 7 [place] [address] Care Team Providers Care Bread Icer Name Role Phone Shannon Lipscomb MD Primary Care Pro vider Reason for Visit * Reason Onset Date Comments Appointment Request 05/12/2024 Encounter Details Date Type Department Care Team ([facility] st Contact Info) Description 05/12/2024 Telephone [facility] [address] [place] [address] Shannon Lipscomb MD [address] [place] [address] Appointment Request Social History Tobacco Use Types [...] Miscellaneous Notes * Telephone Encounter - Rudolph Jorge - 05/12/2024 2:43 PM EST Tc from pt calling in regards to today's tele visit stating he was having technical issues with hisphone and was unable to receive calls. Pt has now had issues fixed and would like to provide alternative number if unable to reach him from his main one. If no answer please contact [phone]. documented in this encounter Plan of Treatment Not on file documented as of this encounter Visit Diagnoses Not on filedocumented in this encounter Additional Health Concerns Assessment Noted Time PHQ-9 Depression Total Score: 3 06/19/19 2:58 PM EST documented as of this encounter Care Teams Bread Icer Relationship Specialty Start Date End Date Shannon Lipscomb MD [address] [place] [id number] PCP - General Internal Medicine 03/11/23 documented as of this encounter
--- OUTSIDE RECORDS SUMMARY | 2024-09-21 18:31 | XMS_ITS | Encounter Summary ---
Author Organization [employer] Address [address] [place] [address] 7[address] [place] [address] Care Team Providers Care Potato Pancake Frier Name Role Phone Neha Ramos Primary Care Provider [phone] Shannon Lipscomb MD Primary Care Pro vider Reason for Visit * Reason Comments Med Change Request Encounter Details Date Type Department Care Team (Late st Contact Info) Description 06/19/2022 Refill [facility] [address] [place] [address] Neha Ramos FNP [address] [place] [address] Dept [place] [address] Migraine without aura and without status migrainosus, [...] Orientation Straight 09/09/2024 2: 33 PM EDT COVID-19 Exposure Response Date Recorded In the last 10 days, have yo u been in contact with someone who was confirmed or suspected to have Coronavirus/COVID-19? No / Unsure 06/19/2022 2:49 PM EST documented as of this encounter Miscellaneous Notes * Telephone Encounter - MAKENNA Hebert - 06/20/2022 1:06 PM EST Medication available at [facility] pharmacy Will send med there [facility] [...] documented as of this encounter Care Teams Potato Pancake Frier Relationship Specialty Start Date End Date Neha Ramos FNP PCP - General Family Medicine 11/20/21 03/10/23 Shannon Lipscomb MD [address] [place] [phone] PCP - General Internal Medicine 03/11/23 documented as of this encounter
--- OUTSIDE RECORDS SUMMARY | 2024-09-21 18:31 | XMS_ITS | Encounter Summary ---
Author Organization [facility] Address [address] [place] [address] Phone Care Team Providers Care Assistant Women'S Soccer Coach Name Role Phone Marquis Aguirre MD Primary Care Provider [phone] Encounter Details Date Type Department Care Team (Late st Contact Info) Description 05/30/2010 Documentation [facility] [place] Medicine [address] [place], [place] [phone] Family Medicine, Physician [address] [place], [place] [address] Social History Tobacco Use Types Packs/Day Years [...] on filedocumented in this encounter Care Teams Assistant Women'S Soccer Coach Relationship Specialty Start Date End Date Marquis Aguirre MD [address] [facility] DARSHANA Gallardo PCP - General 01/16/17 07/23/22 documented as of this encounter
--- OUTSIDE RECORDS SUMMARY | 2024-09-21 18:31 | XMS_ITS | Encounter Summary ---
Author Organization [facility] Address [address] [place] [address] Phone Care Team Providers Care Paper Tester Name Role Phone Marquis Aguirre MD Primary Care Provider [phone] Encounter Details Date Type Department Care Team (Late st Contact Info) Description 08/21/2009 Documentation [facility] Family Medicine [address] [place], [place] [phone] Family Medicine, Physician [address] [place], [place] [address] Social History Tobacco Use Types Packs/Day Years [...] on filedocumented in this encounter Care Teams Paper Tester Relationship Specialty Start Date End Date Marquis Aguirre MD [address] [facility] DARSHANA Gallardo PCP - General 01/16/17 07/23/22 documented as of this encounter
--- OUTSIDE RECORDS SUMMARY | 2024-09-21 18:31 | XMS_ITS | Encounter Summary ---
Author Organization [facility] Address [address] [place] [address] Phone Care Team Providers Care Nuclear Design Engineer Name Role Phone Marquis Aguirre MD Primary Care Provider [phone] Encounter Details Date Type Department Care Team (Late st Contact Info) Description 03/03/2011 [place] [facility] [place] [address] [place], [place] [phone] Family Medicine, Physician [address] [place], [place] [phone] Social History Tobacco Use Types Packs/Day Years [...] on filedocumented in this encounter Care Teams Nuclear Design Engineer Relationship Specialty Start Date End Date Marquis Aguirre MD [address] [facility] DARSHANA Gallardo PCP - General 01/16/17 07/23/22 documented as of this encounter
--- OUTSIDE RECORDS SUMMARY | 2024-09-21 18:31 | XMS_ITS | Encounter Summary ---
Author Organization [facility] Address [address] [place] [address] Phone Care Team Providers Care Computing Machine Operator Name Role Phone Marquis Aguirre MD Primary Care Provider [phone] Encounter Details Date Type Department Care Team (Late st Contact Info) Description 03/12/2012 Documentation [facility] [place] [address] [place], [place] [phone] Family Medicine, Physician [address] [place], [place] [phone] Social History Tobacco Use Types Packs/Day Years [...] on filedocumented in this encounter Care Teams Computing Machine Operator Relationship Specialty Start Date End Date Marquis Aguirre MD 150 [facility] DARSHANA Gallardo PCP - General 01/16/17 07/23/22 documented as of this encounter
--- OUTSIDE RECORDS SUMMARY | 2024-09-21 18:31 | XMS_ITS | Encounter Summary ---
Author Organization [facility] Address [address] [place] [address] Phone Care Team Providers Care High Man Name Role Phone Marquis Aguirre MD Primary Care Provider [phone] Encounter Details Date Type Department Care Team (Late st Contact Info) Description 08/12/2010 Documentation [facility] [place] [address] [place], [place] [phone] Family Medicine, Physician [address] [place], [place] [address] Social History Tobacco Use Types Packs/Day Years [...] on filedocumented in this encounter Care Teams High Man Relationship Specialty Start Date End Date Marquis Aguirre MD 150 [facility] DARSHANA Gallardo PCP - General 01/16/17 07/23/22 documented as of this encounter
[2024-09-22 12:08] LABS: Adenovirus PCR Not Detected (Not Detect.); Bordetella parapertussis PCR Not Detected (Not Detect.); Bordetella pertussis PCR Not Detected (Not Detect.); Chlamydia pneumoniae PCR Not Detected (Not Detect.); Coronavirus 229E PCR Not Detected (Not Detect.); Coronavirus HKU1 PCR Not Detected (Not Detect.); Coronavirus NL63 PCR Not Detected (Not Detect.); Coronavirus OC43 PCR Not Detected (Not Detect.); Human metapneumovirus PCR Detected (Not Detect.); Influenza A PCR Not Detected (Not Detect.); Influenza B PCR Not Detected (Not Detect.); Mycoplasma pneumoniae PCR Not Detected (Not Detect.); Parainfluenza 1 PCR Not Detected (Not Detect.); Parainfluenza 2 PCR Not Detected (Not Detect.); Parainfluenza 3 PCR Not Detected (Not Detect.); Parainfluenza 4 PCR Not Detected (Not Detect.); RSV PCR Not Detected (Not Detect.); Rhino/Enterovirus PCR Not Detected (Not Detect.)
[2024-09-22 12:10] LABS: Influenza A H1 PCR Not Detected (Not Detect.); Influenza A H1-2009 PCR Not Detected (Not Detect.); Influenza A H3 PCR Not Detected (Not Detect.); SARS-CoV-2 PCR Not Detected (Not Detect.)
== END 2024-09-21 18:16 | disposition home or self-care (01) ==
LOC: HO.HHCLNP 18:15
PROVIDERS: Visit Provider Nurse Practitioner
DX: R05.9 Cough, unspecified (principal)
CPT/HCPCS: 87070; 87633

== ENCOUNTER 2024-09-22 18:33 | Outpatient (REF) | payer MEDICAID, SELFPAY ==
--- NOTE | ~2024-09-22 | MR_ITS ---
EXAMINATION: MR BRAIN WITHOUT IV CONTRAST HISTORY: chronic prather with alarming symptoms TECHNIQUE: Sagittal T1, and axial T1, FLAIR, T2, gradient echo, and diffusion weighted MR images of the brain were obtained. COMPARISON: Correlation is made with an unenhanced head CT dated 08/28/2019. FINDINGS: The brain parenchyma is unremarkable, demonstrating normal almeida/white differentiation. No foci of abnormal signal intensity are identified. The ventricular system is normal in size and configuration. There is no mass effect or midline shift. No intra or extra-axial fluid collections are identified. There are no foci of restricted diffusion. Normal vascular flow voids are noted in the basilar and carotid arteries. The visualized paranasal sinuses are clear. MR/MR head/brain wo con IMPRESSION: Unremarkable MRI of the brain without contrast. Electronically signed by: Grant Call MD 09/23/2024 07:22 AM EDT
== END 2024-09-22 18:34 | disposition home or self-care (01) ==
LOC: HO.MRI 18:33
PROVIDERS: PCP Student in an Organized Health Care Education/Training Program; Visit Provider Student in an Organized Health Care Education/Training Program
DX: R51.9 Headache, unspecified (principal); G89.29 Other chronic pain
CPT/HCPCS: 70551

== ENCOUNTER → 2024-09-22 18:40 | Outpatient (BNV) | payer MEDICAID, SELFPAY | PROVIDERS: PCP Student in an Organized Health Care Education/Training Program; Visit Provider Radiology Diagnostic Radiology | DX: R51.9 Headache, unspecified (principal) | CPT/HCPCS: 70551 ==

== ENCOUNTER 2025-04-14 18:06 | Outpatient (REF) | payer MEDICAID, SELFPAY ==
--- OUTSIDE RECORDS SUMMARY | 2025-04-14 13:00 | XMS_ITS | Encounter Summary ---
Author Organization [employer] Address [address] [place] [address] Care Team Providers Care Retrieval Specialist Name Role Phone Shannon Lipscomb MD Primary Care Pro vider Reason for Visit * Reason Comments Sore Throat Encounter Details Date Type Department Care Team ([facility] st Contact Info) Description 04/14/2025 1:00 PM EST Office Visit [facility] [address] [place] [address] Karol Arellano NP [address] [place] [address] Chills (Primary Dx); Pharyngitis, unspecified etiology; Rash Social History Tobacco Use Types Packs/Day Years Used Date Smoking Tobacco: Never Smokeless Tobacco: Never Tobacco Cessation:Counseling Given: Not Answered Alcohol Use Standard Drinks/Week Comments Never 0 (1 standard drink = 0.6 oz pur e alcohol) Depression Answer Date Recorded Patient Health Questionnaire-9 Score 12 01/11/2025 Patient Health Questionnaire-9 Score 12 01/11/2025 Last PHQ-9: Questionnaire Data Not on file 0 01/11/2025 Housing Stability Answer Date Recorded What is [...] Answer Date Recorded Patient Health Questionnaire-2 Score 3 01/11/2025 Internet Access Answer Date Recorded Internet Access [...] Sign Reading Time Taken Comments Blood Pressure 120/72 04/14/2025 1:22 PM EST Pulse 88 04/14/2025 1:22 PM EST Temperature 36.7 C (98.1 F) 04/14/2025 1:22 PM EST Respiratory Rate 18 04/14/2025 1:22 PM EST Oxygen Saturation 99% 04/14/2025 1:22 PM EST Inhaled Oxygen Concentration - - Weight 105 kg (232 lb) 04/14/2025 1:22 PM EST Height - - Body Mass Index 36.2 01/11/2025 11:17 AM EDT documented in this encounter Progress Notes * Karol Arellano NP - 04/14/2025 1:00 PM EST Jeffry Rivera is a 34 y.o. male who presents to the office for Chief Complaint Patient presents with Sore Throat Problem List[1] Medical History[2] Allergies[3] Jeffry Rivera, 34 years, male - Sore throat with pain on swallowing, onset yesterday - Reports fever and chills at onset - Denies cough and sinus pain/pressure - Household contact with similar symptoms (chills, sore throat) - Rash present for approximately 2 months, initially linear, treated previously with triamcinolone cream, persistent small itchy patch remains Review of Systems Constitutional: Negative for activity change and appetite change. Respiratory: Negative for apnea and chest tightness. Genitourinary: Negative for difficulty urinating. BP 120/72 (BP Location: Right arm, Patient Position: Sitting, BP Cuff Size: Large adult) Pulse 88 Temp 98.1 ??F (36.7 ??C) (Oral) Resp 18 Wt 232 lb (105 kg) SpO2 99% BMI 36.20 kg/m?? Physical Exam Vitals reviewed. Constitutional: Appearance: Normal appearance. HENT: Head: Normocephalic. Mouth/Throat: Pharynx: Posterior oropharyngeal erythema present. Cardiovascular: Rate and Rhythm: Normal rate. Heart sounds: Normal heart sounds. Pulmonary: Breath sounds: Normal breath sounds. Abdominal: Palpations: Abdomen is soft. Musculoskeletal: Cervical back: Neck supple. Neurological: Mental Status: He is alert. Psychiatric: Mood and Affect: Mood normal. - HEENT: Throat examination reveals erythema without pus. Neck palpation performed. - SKIN: Examination of dermatitis on the back, described as a line with a persistent patch. Results: Office Visit on 04/14/2025 Component Date Value Ref Range Status Influenza A 04/14/2025 Negative Negative, Indeterminate Final Influenza B 04/14/2025 Negative Negative, Indeterminate Final Rapid Strep A Screen 04/14/2025 Negative Negative, None Detected Final Rapid COVID Ag 04/14/2025 Negative Final Assessment & Plan Chills Orders: Influenza A (ID NOW Rapid Molecular) Influenza B (ID NOW Rapid Molecular) POCT rapid strep A manually resulted POCT Rapid COVID Ag Culture, Throat acetaminophen (Tylenol 8 Hour) 650 MG ER tablet; Take 1 tablet (650 mg) by mouth every 8 (eight) hours if needed for mild pain for up to 10 days. Do not crush, chew, or split. ibuprofen 600 MG tablet; Take 1 tablet (600 mg) by mouth every 8 (eight) hours if needed for mild pain for up to 10 days. Pharyngitis, unspecified etiology Orders: Culture, Throat acetaminophen (Tylenol 8 Hour) 650 MG ER tablet; Take 1 tablet (650 mg) by mouth every 8 (eight) hours if needed for mild pain for up to 10 days. Do not crush, chew, or split. ibuprofen 600 MG tablet; Take 1 tablet (600 mg) by mouth every 8 (eight) hours if needed for mild pain for up to 10 days. Rash Orders: triamcinolone (Kenalog) 0.1 % cream; Apply topically if needed in the morning and at bedtime (pain and swelling). Assessment & Plan Chills: - Chills possibly associated with pharyngitis of unclear etiology. - Ordered throat culture to evaluate for bacterial infection. Will send antibiotics to preferred pharmacy if culture is positive. Pharyngitis, unspecified etiology: - Pharyngitis without evidence of pus or positive rapid strep test; likely viral but bacterial etiology not excluded. - Prescribed acetaminophen and ibuprofen for pain and fever, with instructions to take both together and to eat food with ibuprofen. Provided lidocaine rinse for symptomatic relief. Advised to notifyif cough develops. Ordered throat culture; if positive, antibiotics will be prescribed and partner should be treated as well. - Risks and side effects: Advised to discontinue ibuprofen if stomach irritation or inflammation occurs. Rash: - Persistent pruritic rash with residual patch, previously treated with triamcinolone cream. - Renewed prescription for triamcinolone cream. Prescription - Acetaminophen and ibuprofen together for pain and fever; take with food and discontinue ibuprofenif stomach irritation occurs - Lidocaine obinv-sxc-mbazaoi rinse for throat pain relief - Triamcinolone acetonide cream (Kenalog) for persistent rash, apply to affected area as previouslyprescribed Current Medications[4] Based on our discussion, I have outlined the following instructions for you: - A throat culture has been ordered. If the result shows a bacterial infection, antibiotics will besent to your preferred pharmacy and your partner should also be treated. - Take acetaminophen and ibuprofen together for pain and fever. Always eat food when you take ibuprofen. - Use the lidocaine rinse to help with throat discomfort. - Let us know if you develop a cough. - Stop taking ibuprofen if you notice any stomach irritation or inflammation. - Use the triamcinolone cream as prescribed for your rash. Thank you again for your visit, and we look forward to supporting you in your journey to better health. This note was drafted using Ambient (AI) technology. The patient/patient's guardian has been informed and has consented to the use of this technology: Yes [1] Patient Active Problem List Diagnosis Depressive disorder Obesity (BMI 30.0-34.9) Vitamin D deficiency Migraine without aura and without status migrainosus, not intractable History of vasectomy Bleeding hemorrhoids PTSD (post-traumatic stress disorder) [2] Past Medical History: Diagnosis Date Bleeding hemorrhoids 07/14/2024 [3] No Known Allergies [4] Current Outpatient Medications: acetaminophen (Tylenol 8 Hour) 650 MG ER tablet, Take 1 tablet (650 mg) by mouth every 8 (eight) hours if needed for mild pain for up to 10 days. Do not crush, chew, or split., Disp: 30 tablet, Rfl: 0 wdzbnkchug-hunoetnnfyyqb-qfwbounf 50-325-40 MG tablet, TAKE 1 TABLET BY MOUTH EVERY 4 HOURS., Disp:15 tablet, Rfl: 1 cetirizine (ZyrTEC) 10 MG tablet, Take 1 tablet (10 mg) by mouth Once per day., Disp: 30 tablet, Rfl: 3 D3 50 MCG (2000 UT) tablet, Take 2,000 Units by mouth in the morning., Disp: 90 tablet, Rfl: 1 diphenhydrAMINE (BENADryl) 25 MG tablet, Take 1 tablet (25 mg) by mouth every 6 (six) hours if needed for itching., Disp: 30 tablet, Rfl: 0 docusate sodium (Colace) 100 MG capsule, Take 1 capsule (100 mg) by mouth 2 times daily., Disp: 180capsule, Rfl: 1 fluticasone (Flonase Allergy Relief) 50 MCG/ACT nasal spray, Administer 1 spray into each nostril Once per day. Shake gently. Before first use, prime pump. After use, clean tip and replace cap., Disp: 16 g, Rfl: 1 hydrocortisone (Proctosol HC) 2.5 % rectal cream, Insert into the rectum 2 times daily., Disp: 28 g, Rfl: 2 ibuprofen 600 MG tablet, Take 1 tablet (600 mg) by mouth every 8 (eight) hours if needed for mild pain for up to 10 days., Disp: 30 tablet, Rfl: 0 lidocaine (Xylocaine) 2 % solution, Take 1.3 mL by mouth if needed for mild pain for up to 10 days., Disp: 100 mL, Rfl: 0 Magnesium Oxide -Mg Supplement 400 MG capsule, TAKE 1 CAPSULE BY MOUTH EVERY DAY, Disp: 90 capsule,Rfl: 0 topiramate 50 MG tablet, Take 1 tablet (50 mg) by mouth every 12 (twelve) hours., Disp: 60 tablet, Rfl: 2 triamcinolone (Kenalog) 0.1 % cream, Apply topically if needed in the morning and at bedtime (pain and swelling)., Disp: 30 g, Rfl: 2 witch anisa-glycerin (Tucks) pad, Apply topically if needed for irritation or hemorrhoids., Disp: 100 each, Rfl: 3 documented in this encounter Plan of Treatment Scheduled Orders Name Type Priority Associated Diagnoses Orde r Schedule Culture, Throat Microbiology Routine Chills Pharyngitis, unspecified etiology Ordered: 04/14/2025 documented as of this encounter Procedures Procedure Name Priority Date/Time Associated Diagnosis Comments POCT INFLUENZA B (ID NOW RAPID MOLECULAR) Routine 04/14/2025 1:40 PM EST Chills POCT INFLUENZA A (ID NOW RAPID MOLECULAR) Routine 04/14/2025 1:40 PM EST Chills POCT RAPID STREP A Routine 04/14/2025 1: 29 PM EST Chills POCT RAPID COVID ANTIGEN Routine 04/14/2025 1:28 PM EST Chills documented in this encounter Results * Influenza B (ID NOW Rapid Molecular) (04/14/2025 1:40 PM EST) Influenza B Negative Negative, Indeterminate [facility] Swab 04/14/2025 1:40 PM EST us Karol Arellano NP POINT OF CARE TEST ENTER/EDIT OR DERABLES Final Result [facility] [address] [place] [phone] * Influenza A (ID NOW Rapid Molecular) (04/14/2025 1:40 PM EST) Influenza A Negative Negative, Indeterminate [facility] Swab 04/14/2025 1:40 PM EST Karol Arellano BUNCH BREAKER POINT OF CARE TEST ENTER/EDIT OR DERABLES Final Result [facility] [address] [place] [address] [phone] * POCT rapid strep A manually resulted (04/14/2025 1:29 PM EST) Rapid Strep A Screen Negative Negative, None Detected Swab 04/14/2025 1:29 PM EST Karol Arellano BUNCH BREAKER POINT OF CARE TEST ENTER/EDIT OR DERABLES Final Result * POCT Rapid COVID Ag (04/14/2025 1:28 PM EST) Rapid COVID Ag Negative Swab 04/14/2025 1:28 PM EST Karol Arellano BUNCH BREAKER POINT OF CARE TEST ENTER/EDIT OR DERABLES Final Result documented in this encounter Visit Diagnoses Diagnosis Chills- Primary Chills (without fever) Pharyngitis, unspecified etiology Rash Rash and other nonspecific skin eruption documented in this encounter Additional Health Concerns Assessment Noted Time PHQ-9 Depression Total Score: 12 08/ 025 1:30 PM EDT documented as of this encounter Care Teams Retrieval Specialist Relationship Specialty Start Date End Date Shannon Lipscomb MD [address] [place] [phone] PCP - General Internal Medicine 03/11/23 documented as of this encounter
--- OUTSIDE RECORDS SUMMARY | 2025-04-14 18:10 | XMS_ITS | Encounter Summary ---
Author Organization [employer] Address [address] 7 [place] [address] Care Team Providers Care Housing Management Representative Name Role Phone Shannon Lipscomb MD Primary Care Pro vider Reason for Visit * Reason Onset Date Comments Nurse Triage 01/11/2025 Encounter Details Date Type Department Care Team (Late st Contact Info) Description 01/11/2025 Telephone [facility] [address] [place] [address] Shannon Lipscomb MD [address] [place] [address] Nurse Triage Social History Tobacco Use Types [...] PM EDT documented as of this encounter Functional Status * Over the past 2 weeks, how often have you been bothered by any of the following problems? Question Answer Date of Assessment Author Patient Health Questionnaire-2 Score 3 01/11/2025 1:30 PM EDT Attila Leiva * Little interest or pleasure in doing things Answer Date of Assessment Author Several days 01/11/2025 1:30 PM EDT Attila Saleem * Feeling down, depressed, or hopeless Answer Date of Assessment Author More than half the days 01/11/2025 1:30 PM EDT Attila Morales * Trouble falling or staying asleep, or sleeping too much Answer Date of Assessment Author Nearly every day 01/11/2025 1:30 PM EDT Attila Bhakta * Feeling tired or having little energy Answer Date of Assessment Author Nearly every day 01/11/2025 1:30 PM EDT Attila Bhakta * Poor appetite or overeating Answer Date of Assessment Author Not at all 01/11/2025 1:30 PM EDT Attila Saleem * Feeling bad about yourself - or that you are a failure or have let yourself or your family down Answer Date of Assessment Author More than half the days 01/11/2025 1:30 PM EDT Attila Morales * Trouble concentrating on things, such as reading the newspaper or watching television Answer Date of Assessment Author Several days 01/11/2025 1:30 PM EDT Attila Saleem * Moving or speaking so slowly that other people could have noticed? Or the opposite - being so fidgety or restless that you have been moving around a lot more than usual. Answer Date of Assessment Author Not at all 01/11/2025 1:30 PM EDT Attila Saleem * Thoughts that you would be better off or hurting yourself in some way Answer Date of Assessment Author Not at all 01/11/2025 1:30 PM EDT Attila Saleem * Patient Health Questionnaire-9 Score Answer Date of Assessment Author 12 01/11/2025 1:30 PM EDT Attila Saleem * How difficult have these problems made it for you to do your work, take care of things at home, or get along with other people? Answer Date of Assessment Author Very difficult 01/11/2025 1:30 PM EDT Attila Saleem * Over the last 2 weeks, how often have you been bothered by any of the following problems? Question Answer Date of Assessment Author Feeling nervous, anxious, or on edge 3 01/11/2025 1:30 PM EDT Attila Quesada Not being able to stop or control worrying 3 01/11/2025 1:30 PM EDT Attila Quesada Worrying too much about different things 3 01/11/2025 1:30 PM EDT Attila Quesada Trouble relaxing 3 01/11/2025 1:30 PM EDT Attila Morales Being so restless that it is hard to sit still 3 01/11/2025 1:30 PM EDT Attila Quesada Becoming easily annoyed or irritable 3 01/11/2025 1:30 PM EDT Attila Quesada Feeling afraid as if something awful might happen 3 01/11/2025 1:30 PM EDT Attila Bhakta VALERIE-7 Total Score 21 01/11/2025 1:30 PM EDT Attila Quesada documented as of this encounter Miscellaneous Notes * Telephone Encounter - Lelia Mckeon RN - 01/11/2025 9:26 AM EDT Triage call Pt reports increasing depression, anxiety and possibly some paranoia over the last few weeks. Pt reports history of depression as a child and had been medicated. Pt reports that depression stemmed from poor relationship with father. Pt reports relationship with dad is very good now. Pt reports having difficulty sleeping, day to day activities are difficult and weight loss with poor appetite experienced. Pt denies suicidal thoughts or thoughts to hurt someone. Pt reports some fear based anxiety as well. Pt is given crisis number [phone] to call when needed. Pt agrees to try this if needs to speak with someone. Pt reports , I want to be a good father and do well with my kids , I don't want this to get worse . Pt is transferred to [facility] via phone. ASK apt with CHAPIN Mason today at 1030am. Pt agrees with disposition. Insurance is verified as active prior to booking. Protocol Used: Depression (Adult) Protocol-Based Disposition: See in Office or Video Visit within 3 Days Video visit not offered Positive Triage Questions: * Symptoms interfere with work or school * Depression is getting worse (e.g.,sleeping poorly, less able to do activities of daily living) * Requesting to talk with a counselor (mental health worker, psychiatrist, etc.) * Patient wants to be seen * All higher-acuity triage questions were negative Care Advice Discussed: * Reasons To Call Back - Sadness or depression symptoms persist over 2 weeks - You want to talk with a counselor - You feel like harming yourself - You become worse * Telephone Encounter - Cristobal Harley - 01/11/2025 8:39 AM EDT Symptoms: Anxiety or Panic Attack, Depression Outcome: Schedule an urgent appointment (within 4 hours) or talk to a nurse or provider soon Reason: Anxiety keeps from normal daily activities (such as school or work) The caller accepted this outcome. [phone] documented in this encounter Plan of Treatment Not on file documented as of this encounter Visit Diagnoses Not on filedocumented in this encounter Additional Health Concerns Assessment Noted Time PHQ-9 Depression Total Score: 12 08/06/2 025 1:30 PM EDT documented as of this encounter Care Teams Housing Management Representative Relationship Specialty Start Date End Date Shannon Lipscomb MD [address] [place] [phone] PCP - General Internal Medicine 03/11/23 documented as of this encounter
--- OUTSIDE RECORDS SUMMARY | 2025-04-14 18:10 | XMS_ITS | Encounter Summary ---
Author Organization [employer] Address [address] [place] [address] Care Team Providers Care Linoleum Layer Apprentice Name Role Phone Shannon Lipscomb MD Primary Care Pro vider Encounter Details Date Type Department Care Team (Latest Contact Info) Description 04/14/2025 Travel Social History Tobacco Use Types Packs/Day Years [...] PM EDT documented as of this encounter Plan of Treatment Not on file documented as of this encounter Visit Diagnoses Not on filedocumented in this encounter Additional Health Concerns Assessment Noted Time PHQ-9 Depression Total Score: 12 025 1:30 PM EDT documented as of this encounter Care Teams Linoleum Layer Apprentice Relationship Specialty Start Date End Date Shannon Lipscomb MD [address] [place] [phone] PCP - General Internal Medicine 03/11/23 documented as of this encounter
--- OUTSIDE RECORDS SUMMARY | 2025-04-14 18:11 | XMS_ITS | Encounter Summary ---
Author Organization [facility] Address [address] [place] [address] Phone Care Team Providers Care Veneer Splicer Name Role Phone Marquis Aguirre MD Primary Care Provider [phone] Encounter Details Date Type Department Care Team (Late st Contact Info) Description 06/16/2011 Documentation [facility] [place] [facility] [address] [place], [place] [phone] Family Medicine, Physician [address], [place] [address] Social History Tobacco Use Types Packs/Day Years [...] on filedocumented in this encounter Care Teams Veneer Splicer Relationship Specialty Start Date End Date Marquis Aguirre MD [address] [facility] DARSHANA Gallardo PCP - General 01/16/17 07/23/22 documented as of this encounter
--- OUTSIDE RECORDS SUMMARY | 2025-04-14 18:11 | XMS_ITS | Encounter Summary ---
Author Organization [facility] Address [address] [place] [address] Phone Care Team Providers Care Industrial Automation Engineer Name Role Phone Marquis Aguirre MD Primary Care Provider [phone] Encounter Details Date Type Department Care Team (Late st Contact Info) Description 01/22/2017 Conversion Encounter [facility] [place] [address] [place] [address] Social History Tobacco Use Types Packs/Day Years [...] on filedocumented in this encounter Care Teams Industrial Automation Engineer Relationship Specialty Start Date End Date Marquis Aguirre MD [address] [place] [address] PCP - General 01/16/17 07/23/22 documented as of this encounter
--- OUTSIDE RECORDS SUMMARY | 2025-04-14 18:11 | XMS_ITS | Encounter Summary ---
Author Organization [facility] Address [address] [place] [address] Phone Care Team Providers Care Phlebotomist Medical Lab Assistant Name Role Phone Marquis Aguirre MD Primary Care Provider [phone] Encounter Details Date Type Department Care Team (Late st Contact Info) Description 08/29/[address] [facility] [place] [facility] Medicine [address] [place], [place] [phone] Family Medicine, Physician [address] [place], [place] [address] Social History Tobacco Use Types Packs/Day Years [...] on filedocumented in this encounter Care Teams Phlebotomist Medical Lab Assistant Relationship Specialty Start Date End Date Marquis Aguirre MD [address] [facility] DARSHANA Gallardo PCP - General 01/16/17 07/23/22 documented as of this encounter
--- OUTSIDE RECORDS SUMMARY | 2025-04-14 18:11 | XMS_ITS | Clinical Summary ---
Author Organization [facility] Address [address] [place] [phone] Phone Care Team Providers Care Banking Paralegal Name Role Phone Unavailable Primary Care Provider [...] 98 01/14/2011 12:00 AM EDT Temperature 36.5 C (97.7 F) 12/28/2012 12:00 AM EDT Respiratory Rate - - Oxygen Saturation - [...] 01/05/1997, Additional history exists Influenza Vaccines (#1) 2025 04/22/20 12, 02/27/2011, 04/29/2010, Additional history exists COVID-19 Vaccine ( season) 2025 Hepatitis B Vaccines Completed 01/04/1993, 1992, 1992 [...]
--- OUTSIDE RECORDS SUMMARY | 2025-04-14 18:11 | XMS_ITS | Clinical Summary ---
Author Organization [employer] Address [address] [facility] [address] [place] [address] Care Team Providers Care Frame Wirer Name Role Phone Shannon Lipscomb MD Primary Care Pro vider Allergies No known active allergies Medications * This document contains information received from the source organization and may not represent a complete record from that organization. D3 50 MCG (1999) tabletIndicatio ns:Vitamin D deficiency Take 2,000 Units by mouth in the morning. 90 tablet 1 06/19/19 23 Active Magnesium Oxide -Mg Supplement 400 MG [...] 180 capsule 1 07/14/19 25 026 Active butalbital-acet aminophen-caffe ine 50-325-40 MG tabletIndicatio ns:Migraine without aura and without status migrainosus, not intractable TAKE 1 TABLET BY MOUTH EVERY 4 HOURS. 15 tablet 1 08/31/19 25 Active topiramate 50 MG tabletIndicatio ns:Migraine without aura and without status migrainosus, not intractable Take 1 tablet (50 mg) by mouth every 12 (twelve) hours. 60 tablet 2 09/10/19 25 Active fluticasone (Flonase Allergy Relief) 50 MCG/ACT nasal sprayIndication s:Cough in adult patient Administer 1 spray into each nostril Once per day. Shake gently. Before first use, prime pump. After use, clean tip and replace cap. 16 g 1 09/22/19 25 026 Active cetirizine (ZyrTEC) 10 MG tablet Take 1 tablet (10 mg) by mouth Once per day. 30 tablet 3 02/24/20 25 026 Active diphenhydrAMINE (BENADryl) 25 MG tablet Take 1 tablet (25 mg) by mouth every 6 (six) hours if needed for itching. 30 tablet 02/24/20 25 Active acetaminophen (Tylenol 8 Hour) 650 MG ER tabletIndicatio ns:Chills,Phary ngitis, unspecified etiology Take 1 tablet (650 mg) by mouth every 8 (eight) hours if needed for mild pain for up to 10 days. Do not crush, chew, or split. 30 tablet 04/14/20 25 Active ibuprofen 600 MG tabletIndicatio ns:Chills,Phary ngitis, unspecified etiology Take 1 tablet (600 mg) by mouth every 8 (eight) hours if needed for mild pain for up to 10 days. 30 tablet 04/14/20 25 Active lidocaine (Xylocaine) 2 % solution Take 1.3 mL by mouth if needed for mild pain for up to 10 days. 100 mL 04/14/20 25 Active triamcinolone (Kenalog) 0.1 % creamIndication s:Rash Apply topically if needed in the morning and at bedtime (pain and swelling). 30 g 2 04/14/20 25 Active Acetaminophen Extra Strength 500 MG tablet TAKE 1 TAB ORALLY EVERY 6 HOURS NEEDED FOR FEVER OR PAIN 06/05/20 22 025 Discontinued aspirin-acetami nophen-caffeine (Excedrin Migraine) 250-250-65 MG tablet Take 1 tablet by mouth every 12 (twelve) hours if needed for headaches. 1-2 tab PRN for headaches 30 tablet 2 03/31/20 24 Active Problems Problem Noted Date Diagnosed Date PTSD (post-traumatic stress disorder) 01/11/2025 Bleeding hemorrhoids 07/14/2024 07/04/2024 History of vasectomy 06/24/2022 Vitamin D deficiency 06/19/2022 Migraine without aura and wi thout status migrainosus, not intractable 06/19/2022 Assessment & Plan (05/12/2024 3:38 PM EST): I advise to avoid migraine triggers like red wine, chocolate, cheese, strong perfumes C/w topiromate 50mg daily C/w fioricept PRN Obesity (BMI 30.0-34.9) 05/25/2018 Depressive disorder 07/27/2015 Encounters * This document contains information received from the source organization and may not represent a complete record from that organization. Date Type Department Care Team Description 04/14/2025 1:00 PM EST Office Visit [facility] [address] [place] [phone] Karol Arellano NP Chills (Primary Dx); Pharyngitis, unspecified etiology; Rash 04/14/2025 Travel 02/23/2025 11:20 AM EDT Office Visit [facility] [address] [address] Tg Candelaria DO Dermatitis (Primary Dx) 02/23/2025 Travel from Last 3 Months Immunizations Immunization Administration Dates Next Due DTP 01/05/1997, 5,01/04/1993,10/15,1992 HPV, Quadrivalent 04/22/2012,10/15/2010,08/09/19 11 Hep B, Adolescent or Pediatric 01/04/1993,1992,1992 Hib (PRP-T) 08/26/1993, 3,1992,08/10 IPV 01/05/1997 Influenza injectable quadriv alent preservative free 05/25/2018 Influenza, IIV3, injectable 03/22/2009 Influenza, Split (incl. erika fied surface antigen) 04/22/2012,02/27/2011,04/29/2010 MMR 01/05/1997,02/04/1996 Meningococcal MCV4P ACYW-135 05/26/2008 Novel [id number], all formulations 03/22/2009 OPV, Trivalent 11/04/1994,1992,1992 TD [...] (232 lb) 04/14/2025 1:22 PM EST Height 170.5 cm (5' 7.13 ) 01/11/2025 11:17 AM E DT Body Mass Index 36.2 01/11/2025 11:17 AM EDT Plan of Treatment Health Maintenance Due Date Last Done Comments HIV Screening 1992 Family Planning (PISQ) 2007 Hepatitis C Screening 2010 COVID-19 Vaccine ( season) 2025 Influenza Vaccine (#1) 2025 8, 04/22/2012, 02/27/2011, Additional history exists Depression Monitoring 07/14/2025 01/11/2025, 025 Lipid Panel 09/04/2025 09/04/2020 Alcohol/Substance Use Screening 09/09/2025 09/09/2024 SDOH Screening 09/09/2025 09/09/2024 Disability Screening 01/11/2026 01/11/2025 Tobacco Screening 04/14/2026 04/14/2025 DTaP/Tdap/Td Vaccines (8 - Td or Tdap) [...] on patient's age to complete this topic Meningococcal B Vaccine Aged Out No l onger eligible based on patient's age to complete this topic Pneumococcal Vaccine: Pediatrics (0 to 5 Years) and At-Risk Patients (6 to 49) Years Aged Out No longer eligible based on [...] ANTIGEN Routine 04/14/2025 1:28 PM EST Chills LIPID PANEL, STANDARD Routine 09/04/2020 1:06 PM EDT from Last 3 Months or Most Recently Relevant to Health Maintenance Results * Influenza B (ID NOW Rapid Molecular) (04/14/2025 1:40 PM EST) Influenza B Negative Negative, Indeterminate [facility] Swab 04/14/2025 1:40 PM EST us Karol Arellano NP POINT OF CARE TEST ENTER/EDIT OR DERABLES Final Result [facility] [address] [place] [phone] * Influenza A (ID NOW Rapid Molecular) (04/14/2025 1:40 PM EST) [facility] Influenza A Negative Negative, Indeterminate [facility] Swab 04/14/2025 1:4 0 PM EST Karol Arellano AUTO BODY REPAIR TECHNICIAN POINT OF CARE TEST ENTER/EDIT OR DERABLES Final Result [facility] [address] [place] [phone] * POCT rapid strep A manually resulted (04/14/2025 1:29 PM EST) [facility] Rapid Strep A Screen Negative Negative, None Detected Swab 04/14/2025 1:29 PM EST Result [facility] Karol Arellano AUTO BODY REPAIR TECHNICIAN POINT OF CARE TEST ENTER/EDIT OR DERABLES Final Result * POCT Rapid COVID Ag (04/14/2025 1:28 PM EST) [facility] Rapid COVID Ag Negative Swab 04/14/2025 1:28 PM EST Result [facility] Karol Arellano AUTO BODY REPAIR TECHNICIAN POINT OF CARE TEST ENTER/EDIT OR DERABLES Final Result * (ABNORMAL) LIPID PANEL, STANDARD (09/04/2020 1:06 PM EDT) [facility] Chol/HDLC Ratio 4.4 <5.0 (calc) [facility] Cholesterol, Total 163 <200 mg/dL [facility] HDL Cholesterol 37(L) > OR = 40 mg/dL [facility] LDL Cholesterol 104(H) mg/dL (calc) [facility] Comment: Reference range: <100 Desirable range <100 mg/dL for primary prevention; <70 mg/dL for patients with CHD or diabetic patients with > or = 2 CHD risk factors. LDL-C is now calculated using the Ashleigh calculation, which is a validated novel method providing better accuracy than the Friedewald equation in the estimation of LDL-C. Louis DOYLE et al. EMELIA. 2013;310(19): 8684-6310 (http://education.[employer]/faq/NXO132) Non-HDL Cholesterol 126 <130 mg/dL (calc) [facility] Comment: For patients with diabetes plus 1 major ASCVD risk factor, treating to a non-HDL-C goal of <100 mg/dL (LDL-C of <70 mg/dL) is considered a therapeutic option. Triglycerides 120 <150 mg/dL [facility] 09/04/2020 1:06 PM EDT us Mckayla Simpson PLANNER CHIEF LAB BLOOD ORDERABLES Final Result [facility] [address] from Last 3 Months or Most Recently Relevant to Health Maintenance Insurance [facility] C3 Care Teams Frame Wirer Relationship Specialty Start Date End Date Shannon Lipscomb MD [address] [place] [address] PCP - General Internal Medicine 03/11/23
--- OUTSIDE RECORDS SUMMARY | 2025-04-14 18:12 | XMS_ITS | Encounter Summary ---
Author Organization [facility] Address [address] [place] [address] Phone Care Team Providers Care Spring Forger Name Role Phone Marquis Aguirre MD Primary Care Provider [phone] Encounter Details Date Type Department Care Team (Late st Contact Info) Description 05/30/2010 Documentation [facility] Family Medicine [address] [place], [place] [phone] Family Medicine, Physician [address] [place], [place] [address] Social History Tobacco Use Types Packs/Day Years [...] on filedocumented in this encounter Care Teams Spring Forger Relationship Specialty Start Date End Date Marquis Aguirre MD [address] [facility] DARSHANA Gallardo PCP - General 01/16/17 07/23/22 documented as of this encounter
--- OUTSIDE RECORDS SUMMARY | 2025-04-14 18:12 | XMS_ITS | Encounter Summary ---
Author Organization [facility] Address [address] [place] [address] Phone Care Team Providers Care [facility] Sales Name Role Phone Marquis Aguirre MD Primary Care Provider [phone] Encounter Details Date Type Department Care Team (Late st Contact Info) Description 03/03/2011 Documentation [facility] Family Medicine [address] [place], [place] [phone] Family Medicine, Physician [address] [place], [place] [address] Social History Tobacco Use Types Packs/Day Years [...] on filedocumented in this encounter Care Teams Medical Hospital Sales Relationship Specialty Start Date End Date Marquis Aguirre MD 150 [facility] DARSHANA Gallardo PCP - General 01/16/17 07/23/22 documented as of this encounter
--- OUTSIDE RECORDS SUMMARY | 2025-04-14 18:12 | XMS_ITS | Encounter Summary ---
Author Organization [employer] Address [address] [facility] 7t [place] [address] Care Team Providers Care Sugar Mixer Name Role Phone Neha Ramos HOT MIX OPERATOR Primary Care Provider Shannon Lance MD Primary Care Pro vider Reason for Visit * Reason Comments Med Change Request Encounter Details Date Type Department Care Team (Late st Contact Info) Description 06/19/2022 Refill [facility] [address] [place], [place] [phone] Neha Ramos FNP Migraine without aura and without status migrainosus, [...] PM EST documented as of this encounter Functional Status * Over the past 2 weeks, how often have you been bothered by any of the following problems? Question Answer Date of Assessment Author Patient Health Questionnaire-2 Score 0 06/08 2:58 PM Francisco Fan * If you checked off any problems on this questionnaire so far, Question Answer Date of Assessment Author How difficult have these problems made it for you to do your work, take care of things at home, or get along with other people? Not difficult at all 06/19/2022 2:58 PM Francisco Fan * Over the past 2 weeks, how often have you been bothered by any of the following problems? Question Answer Date of Assessment Author Little interest or pleasure in doing things Not at all 06/19/2022 2:58 PM Francisco Fan Feeling down, depressed, or hopeless Not at all 06/19/2022 2:58 PM Francisco Fan Trouble falling or staying asleep, or sleeping too much Not at all 06/19/2022 2:58 PM Aubrey Fan Feeling tired or having javier le energy Not at all 06/19/2022 2:58 PM Francisco Fan Poor appetite or overeating Nearly every day 2:58 PM Francisco Fan Feeling bad about yourself - or that you are a failure or have let yourself or your family down Not at all 06/19/2022 2:58 PM Francisco Fan Trouble concentrating on things, such as reading the newspaper or watching television Not at all 06/19/2022 2:58 PM Francisco Fan Moving or speaking so slowly that other people could have noticed? Or the opposite - being so fidgety or restless that you have been moving around a lot more than usual. Not at all 06/19/2022 2:58 PM Dennise Fan illeen Thoughts that you would be better off or hurting yourself in some way Not at all 06/19/2022 2:58 PM Francisco Fan Patient Health Questionnaire -9 Score 3 06/19/2022 2:58 PM Francisco Fan documented as of this encounter Miscellaneous Notes * Telephone Encounter - MAKENNA Hebert - 06/20/2022 1:06 PM EST Medication available at [facility] pharmacy Will send med there [facility] will only fill quantity of 20 documented in this encounter Plan of Treatment Not on file documented as of this encounter Visit Diagnoses Diagnosis Migraine without aura and without status migrainosus, not intractable documented in this encounter Additional Health Concerns Assessment Noted Time PHQ-9 Depression Total Score: 3 06/19/19 23 2:58 PM EST documented as of this encounter Care Teams Sugar Mixer Relationship Specialty Start Date End Date Neha Ramos FNP PCP - General Family Medicine 11/20/21 03/10/23 Shannon Lipscomb MD [address] [place] [phone] PCP - General Internal Medicine 03/11/23 documented as of this encounter
--- OUTSIDE RECORDS SUMMARY | 2025-04-14 18:12 | XMS_ITS | Encounter Summary ---
Author Organization [facility] Address [address] [place] [address] Phone Care Team Providers Care Rug Receiving Clerk Name Role Phone Marquis Aguirre MD Primary Care Provider [phone] Encounter Details Date Type Department Care Team (Late st Contact Info) Description 08/12/2010 Documentation [facility] Family Medicine [address] [place], [place] [phone] Family Medicine, Physician [address] [place], [place] [phone] Social History Tobacco Use Types Packs/Day Years [...] on filedocumented in this encounter Care Teams Rug Receiving Clerk Relationship Specialty Start Date End Date Marquis Aguirre MD 150 [facility] DARSHANA Gallardo PCP - General 01/16/17 07/23/22 documented as of this encounter
--- OUTSIDE RECORDS SUMMARY | 2025-04-14 18:12 | XMS_ITS | Encounter Summary ---
Author Organization [facility] Address [address] [place] [address] Phone Care Team Providers Care Torque Tester Name Role Phone Marquis Aguirre MD Primary Care Provider [phone] Encounter Details Date Type Department Care Team (Late st Contact Info) Description 03/03/2011 Documentation [facility] Family Medicine [address] [place], [place] [phone] Family Medicine, Physician [address] [place], [place] [phone] Social History Tobacco Use Types Packs/Day Years [...] on filedocumented in this encounter Care Teams Torque Tester Relationship Specialty Start Date End Date Marquis Aguirre MD 150 [facility] DARSHANA Gallardo PCP - General 01/16/17 07/23/22 documented as of this encounter
--- OUTSIDE RECORDS SUMMARY | 2025-04-14 18:12 | XMS_ITS | Encounter Summary ---
Author Organization [employer] Address [address] [facility] 7 [place] [address] Care Team Providers Care Rn Radiation Name Role Phone Shannon Lipscomb MD Primary Care Pro vider Reason for Visit * Reason Onset Date Comments Appointment Request 05/12/2024 Encounter Details Date Type Department Care Team ([facility] st Contact Info) Description 05/12/2024 Telephone [facility] [address] [place] [address] Shannon Lipscomb MD [address] [place] [address] Appointment Request Social History Tobacco Use Types [...] main one. If no answer please contact [phone]. documented in this encounter Plan of Treatment Not on file documented as of this encounter Visit Diagnoses Not on filedocumented in this encounter Additional Health Concerns Assessment Noted Time PHQ-9 Depression Total Score: 3 06/19/19 2:58 PM EST documented as of this encounter Care Teams Rn Radiation Relationship Specialty Start Date End Date Shannon Lipscomb MD [address] [place] [id number] PCP - General Internal Medicine 03/11/23 documented as of this encounter
--- OUTSIDE RECORDS SUMMARY | 2025-04-14 18:13 | XMS_ITS | Encounter Summary ---
Author Organization [facility] Address [address] [place] [address] Phone Care Team Providers Care Territory Sales Executive Name Role Phone Marquis Aguirre MD Primary Care Provider [phone] Encounter Details Date Type Department Care Team (Late st Contact Info) Description 08/21/2009 Documentation [facility] Family Medicine [address] [place], [place] [phone] Family Medicine, Physician [address] [place], [place] [phone] Social History Tobacco Use Types Packs/Day Years [...] on filedocumented in this encounter Care Teams Territory Sales Executive Relationship Specialty Start Date End Date Marquis Aguirre MD [address] [facility] DARSHANA Gallardo PCP - General 01/16/17 07/23/22 documented as of this encounter
--- OUTSIDE RECORDS SUMMARY | 2025-04-14 18:13 | XMS_ITS | Data Portability ---
Author Organization [place] - [facility], Allergy Address [address] [address] Care Team Providers Care Metal Pickling Equipment Operator Name Role Phone TANYA VERNA Primary Care Provider [phone] Assessment Encounter Date Assessment Date Assessment LastModified by Organization Details LastModified Time 03/24/2024 03/24/2024 33-year-old otherwise healthy male seen for an opinion regarding chronic nasal obstruction. He notes obstruction of both sides worse when he lies down. He notes dependent nasal congestion bilaterally. 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 Feels better when he is outside. No hx of asthma Examination shows marked septal deviation to the left side with compensatory inferior turbinate hypertrophy on the right. Tonsils are 2+. There is mild tympanosclerosis of the tympanic membranes. I suspect he has septal deviation with turbinate hypertrophy and possibly underlying allergic rhinitis. He did not like using fluticasone nasal spray. I have suggested a trial of Nasacort 2 sprays each nostril daily, allergy skin testing and consideration for nasal endoscopy or CT if he has persistent symptoms augustin Not available 03/24/2024 09:27:52 06/22/2024 06/22/2024 Patient with significant environmental allergies, septal deviation and compensatory turbinate hypertrophy. He is interested in proceeding with allergy injections to try to reduce his reactivity to dust, mold, cockroach and dogs. He does have significant exposures at work. His mother has a dog. Prior to considering septoplasty and turbinate reduction we will arrange for CT scan to rule out any nasal polyps. augustin Not available 06/22/2024 14:11:51 Plan of Treatment Reminders Order Date Submit Date Provider Last Modified By Organization Details Last Modified Time Details Appointments None recorded. Lab None recorded. Referral None recorded. Procedures allergen immunothera py; multiple injections (PROC) 2024 025 [email or web address] Not available 5 11:18:14 allergy testing, skin prick (PROC) 2023 024 [email or web address] Not available 4 14:34:07 intradermal allergy skin testing (PROC) 2023 024 Not available 4 14:34:12 pulmonary function test procedure (PROC) 2023 024 [email or web address] Not available 4 14:34:18 pulse oximetry (PROC) 2023 024 Not available 4 14:34:24 Surgeries None recorded. Imaging CT, maxillofaci al, w/o contrast 2024 025 [email or web address] [facility], [address], [place], [address], 5 16:09:19 Medication Orders epinephrine 0.3 mg/0.3 mL injection, auto-inject or 2024 025 [facility]acy #[id number], [phone] [place], [address], 5 14:12:07 triamcinolo ne acetonide 55 mcg nasal spray aerosol 2023 024 [facility] #[id number], [phone] [place], [address], 4 13:35:40 Patient TargetsNo targets recorded. Patient InstructionsNo instructions recorded. Reason for Referral None Reported. Results Created Date Observation Date Name Description Value Unit Range Abnormal Flag Note LastModifiedBy Organization Detail LastModifiedTime 07/07/19 25 07/06/2024 CT, maxil lofac ial, w/o contr ast No observ ation record ed. [email or web address] [facility] [address] [facility] [address], [place], [address], 07/22/2024 08:38:03 Result Notes None recorded. Problems Name Problem SNOMED Code Status Onset Date Resolution Date Notes Provider Name and Address Organization Details Recorded Time Deviated nasal septum 183661033 Active 024 SUMAYA YARBROUGH MD 100 [facility],[address] [address], [place], [address], [facility] - [facility] 4 09:28:35 Chronic rhinitis 26496592 Active 024 SUMAYA YARBROUGH MD [address] [address], [place], [address], [facility] - [facility] 4 09:28:43 Allergic rhinitis 92887937 Active 024 SUMAYA YARBROUGH MD 100 [facility] [address] [facility], [place], [address], [facility] 4 09:28:55 Chronic sinusitis 45220811 Active 025 SUMAYA YARBROUGH MD [address] [facility], [address] [facility], [place], [address], [facility] - [facility] 5 14:11:02 Problem Notes None recorded. Procedures Surgical History Date Name Laterality Status Provider Name and Address Organization Details Recorded Time 4 Allergy Testing-Full completed ANGY DUMONT 100 [facility],[address] [address], [place], [address], [facility] - [facility] 04/06/2024 14:33:46 removal of pilonidal cyst completed SUMAYA WEN MD 100 [facility],[address], [address], [facility] 03/24/2024 09:24:17 Imaging Results None recorded. Procedure Notes None recorded. Medical Equipment None Reported. Medications Name Sig Start Date Stop Date Status Note LastModified by Organization Details LastModified Time doxycycline hyclate 100 mg capsule TAKE 1 CAPSULE BY MOUTH TWICE A DAY FOR 7 DAYS 03/24 completed Not Available Not Available Not Available azithromyci n 250 mg tablet TAKE 2 TABLETS BY MOUTH TODAY, THEN TAKE 1 TABLET DAILY FOR 4 DAYS DIRECTED 03/24 completed Not Available Not Available Not Available ofloxacin 0.3 % eye drops INSTILL 1 DROP INTO THE RIGHT EYE 4 TIMES PER DAY FOR 7 DAYS. 03/24 completed Not Available Not Available Not Available hydrocodone 5 mg-acetamin ophen 325 mg tablet 03/24 completed Not Available Not Available Not Available moxifloxaci n 400 mg tablet TAKE 1 TABLET BY MOUTH 1 TIME EACH DAY FOR 7 DAYS. START TAKING AFTER COMPLETIO N OF DOXYCYCLI NE 03/24 completed Not Available Not Available Not Available acetaminoph en 500 mg tablet TAKE 2 TABLET BY MOUTH EVERY 6 HOURS,X3 DAYS NEEDED FOR PAIN 03/24 completed Not Available Not Available Not Available ciprofloxac in 0.3 % eye drops INSTILL 1 DROP IN AFFECTED EYE(S) 4 TIMES A DAY FOR 7 DAYS FOR CONJUNCTI VITIS 03/24 completed Not Available Not Available Not Available triamcinolo ne acetonide 55 mcg nasal spray aerosol INSTILL 2 SPRAYS BY INTRANASA L ROUTE EVERY DAY 04/06 completed Not Available Not Available Not Available epinephrine 0.3 mg/0.3 mL injection, auto-inject or TAKE 1 AUTO BY INJECTION ROUTE FOR 180 DAYS, FOR ANAPHYLAX IS. active Not Available Not Available No t Available ibuprofen 600 mg tablet 1 TABLET BY MOUTH EVERY 6 HOURS,X3 DAYS NEEDED MODERATE PAIN 03/28 completed Not Available Not Available Not Available fluticasone propionate 50 mcg/actuati on nasal spray,suspe nsion ADMINISTE R 1 SPRAY INTRANASA LLY IN EACH NOSTRIL EVERY 12 HOURS 04/06 completed Not Available Not Available Not Available loratadine 10 mg tablet TAKE 1 TABLET BY MOUTH EVERY DAY 03/28 completed Not Available Not Available Not Available amoxicillin 875 mg-potassiu m clavulanate 125 mg tablet TAKE 1 TABLET BY MOUTH TWICE A DAY FOR 10 DAYS 03/24 completed Not Available Not Available Not Available Vitals Date Recorded Body height Body mass index (BMI) Body weight Provider Name and Address Organization Details Last Updated DateTime 06/22/2024 177.8 cm 25.8 kg/m2 06340.63 g iVckey Sánchez [facility] 06/22/2024 13:56:10 Date Recorded Systolic And Diastolic Provider Name and Address Organization Details Last Updated DateTime 03/24/2024 118/80 mm[Hg] SUMAYA WEN MD [address], [address], [facility] 03/24/2024 09:34:49 Date Recorded Body height Body mass index (BMI) Body weight Provider Name and Address Organization Details Last Updated DateTime 03/24/2024 177.8 cm 26.3 kg/m2 50146.4 g Vickey Sánchez [facility] 03/24/2024 09:17:27 Date Recorded Body height Heart rate Body mass index (BMI) Body weight Systolic And Diastolic Provider Name and Address Organization Details Last Updated DateTime 03/28/2024 177.8 cm 87 /min 26.5 kg/m2 23169.59 g 126/76 mm[Hg] MAXIME GOMEZ RN [address], [address] , [facility] 03/28/2024 13:19:17 Date Recorded Body height Body mass index (BMI) Body weight Oxygen saturation Oxygen saturation in Arterial blood by Pulse oximetry Heart rate Systolic And Diastolic Provider Name and Address Organization Details Last Updated DateTime 177.8 cm 27.1 kg/m2 28632.9 6 g 97 % 97 % 62 /min 111/70 mm[Hg] ANGY DUMONT [address], [address], [facility] 13:44:36 Social History None recorded. Functional Status None recorded. Mental Status None recorded. Family History Nothing Reported. Medical History No medical history recorded. Past Encounters Encounter ID Performer Location Encounter Start Date Encounter Closed Date Diagnosis/Indication Diagnosis SNOMED-CT Code Diagnosis ICD10 Code Diagnosis IMO Codes Diagnosis Note [id number] SUMAYA TURK MD [facility] 100 [place] [address] 03/24/2024 09:11:58 03/24/2024 09:44:11 Deviated nasal septum 419284298 J34.2 Chronic rhinitis 0528883 6 J31.0 Allergic rhinitis 570222 04 J30.9 [id number] MAXIME GOMEZ RN Allergy [address] [place] [address], [place] [address] 03/28/2024 13:08:30 03/28/2024 13:47:47 Allergic rhinitis 17729636 J30.9 [id number] ANGY DUMONT Allergy [address] [place] [address], [place] [address] 04/06/2024 13:25:39 04/06/2024 14:47:14 Allergic rhinitis 48609223 J30.9 [id number] SUMAYA TURK MD [facility] [address] [place] [address] 06/22/2024 13:15:29 06/22/2024 14:57:48 Allergic rhinitis 16878302 J30.89 We also discussed the role of immunother apy. I explained that this is instituted for the most significan t of allergies and involves the introducti on of increasing ly graduated dosages of the appropriat e allergens by subcutaneo us injection to facilitate tolerance. I explained about the likelihood of some improvemen t usually within a three to six month time period provided that the patient is compliant with therapy. It may take substantia lly longer for patients with severe allergy. We spoke about the duration of therapy, which typically lasts from three to five years though at times can be indefinite . We also discussed the risk of anaphylaxi s with therapy. Use of an Epipen discussed. Deviated nasal septum 12 9936983 J34.2 Chronic rhinitis 4763596 6 J31.0 Health Concerns Section Related Observation LastModified by Organization Detai ls LastModified Time None Recorded Concern Status LastModified by Organization Details LastModified Time None Recorded Advance Directives Directive None Recorded Payers Insurance Date Sequence Insurance Name Policy Number Policy Ramos Covered Member ID Ramos Member ID Guarantor Name 08/07/2024 1 [facility] (MEDICAID REPLACEMENT - HMO) DEVIJOSE CARLOSZbigniew Jeromy Rivera [id number] Jeromy Rivera Notes Date Note Type Note Provider Name and Address Organization Details Recorded Time 03/24/2024 text/html ROS as noted in the HPI 33-year-old otherwise healthy male seen for an opinion regarding chronic nasal obstruction. He notes obstruction of both sides worse when he lies down. He notes dependent nasal congestion bilaterally. 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 Feels better when he is outside. No hx of asthma [id number] SUMAYA WEN MD [address] [place] [address], [address], [facility] 03/24/2024 10:01:42 06/22/2024 text/html ROS as noted in the HPI Persistent nasal congestion right greater than left. Significant allergy noted dust, mold, cockroach, dog, etc SUMAYA WEN MD [address] [place] [address],[address], [address], [facility] 06/22/2024 14:12:35
--- OUTSIDE RECORDS SUMMARY | 2025-04-14 18:13 | XMS_ITS | Encounter Summary ---
Author Organization [facility] Address [address] [place] [address] Phone Care Team Providers Care Commercial Real Estate Assistant Name Role Phone Marquis Aguirre MD Primary Care Provider [phone] Encounter Details Date Type Department Care Team (Late st Contact Info) Description 03/12/2012 Documentation [facility] [place] [address] [place], [place] [phone] Family Medicine, Physician [address] [place] [place], [place] [address] Social History Tobacco Use Types Packs/Day Years [...] on filedocumented in this encounter Care Teams Commercial Real Estate Assistant Relationship Specialty Start Date End Date Marquis Aguirre MD [address] [facility] DARSHANA Gallardo PCP - General 01/16/17 07/23/22 documented as of this encounter
== END 2025-04-14 18:07 | disposition home or self-care (01) ==
LOC: HO.HHCLNP 18:06
PROVIDERS: Visit Provider Nurse Practitioner Family
DX: Z13.89 Encounter for screening for other disorder (principal)

== ENCOUNTER 2025-04-18 14:30 | Outpatient (REF) | payer MEDICAID, SELFPAY ==
--- OUTSIDE RECORDS SUMMARY | 2025-04-14 13:00 | XMS_ITS | Encounter Summary ---
Author Organization [employer] Address [address] [place] [address] Care Team Providers Care Special Certificate Dictator Name Role Phone Shannon Lipscomb MD Primary Care Pro vider Reason for Visit * Reason Comments Sore Throat Encounter Details Date Type Department Care Team ([facility] st Contact Info) Description 04/14/2025 1:00 PM EST Office Visit [facility] [address] [place] [address] Karol Arellano NP [address] [place] [address] Chills (Primary Dx); Pharyngitis, unspecified etiology; Rash [...] discontinue ibuprofenif stomach irritation occurs - Lidocaine bymas-udp-ipladvc rinse for throat pain relief - Triamcinolone [...] or split., Disp: 30 tablet, Rfl: 0 ywiotifmyy-lrvbxddakepdn-zqkkkmur 50-325-40 MG tablet, TAKE 1 TABLET BY [...] PM EST) Influenza B Negative Negative, Indeterminate [facility] Swab 04/14/2025 1:40 PM EST us Karol Arellano NP POINT OF CARE TEST ENTER/EDIT OR DERABLES Final Result [facility] [address] [place] [phone] * Influenza A (ID NOW Rapid Molecular) (04/14/2025 1:40 PM EST) Influenza A Negative Negative, Indeterminate [facility] Swab 04/14/2025 1:40 PM EST Karol Arellano REAL ESTATE TRANSACTION COORDINATOR POINT OF CARE TEST ENTER/EDIT OR DERABLES Final Result [facility] [address] [place] [phone] * POCT rapid strep A manually resulted (04/14/2025 1:29 PM EST) Rapid Strep A Screen Negative Negative, None Detected Swab 04/14/2025 1:29 PM EST Karol Arellano REAL ESTATE TRANSACTION COORDINATOR POINT OF CARE TEST ENTER/EDIT OR DERABLES Final Result * POCT Rapid COVID Ag (04/14/2025 1:28 PM EST) Rapid COVID Ag Negative Swab 04/14/2025 1:28 PM EST Karol Arellano REAL ESTATE TRANSACTION COORDINATOR POINT OF CARE TEST ENTER/EDIT OR DERABLES Final Result documented in this encounter Visit Diagnoses Diagnosis Chills- Primary Chills (without fever) Pharyngitis, unspecified etiology Rash Rash and other nonspecific skin eruption documented in this encounter Additional Health Concerns Assessment Noted Time PHQ-9 Depression Total Score: 12 08/ 025 1:30 PM EDT documented as of this encounter Care Teams Special Certificate Dictator Relationship Specialty Start Date End Date Shannon Lipscomb MD [address] [place] [phone] PCP - General Internal Medicine 03/11/23 documented as of this encounter
--- OUTSIDE RECORDS SUMMARY | 2025-04-18 13:20 | XMS_ITS | Encounter Summary ---
Author Organization [employer] Address [address] [facility] [address] [place] [address] Care Team Providers Care Product Lister Name Role Phone Shannon Lipscomb MD Primary Care Pro vider Reason for Referral * Imaging (STAT) - Authorized Specialty Diagnoses / Procedures Referred By Marielena aaron Referred To Contact Radiology Diagnoses Hemoptysis Procedures CTA Chest WITH AND WITHOUT Contrast Edgardo Morrison MD [address] [place] [address] Phone: tel: fax: [address] Phone: tel: fax: Referral ID Status Reason Start Date Expiration Date V isits Requested Visits Authorized [id number] Authorized 04/18/2025 04/18/2026 1 1 * Consultation (Urgent) - Pending Review Specialty Diagnoses / Procedures Referred By Marielena aaron Referred To Contact Pulmonary Disease Diagnoses Hemoptysis Edgardo Morrison MD [address] [place] [address] Phone: tel: fax: Referral ID Status Reason Start Date Expiration Date Visits Requested Visits Authorized [id number] Pending Review Specialty Services Required 04/18/2026 1 1 Reason for Visit * Reason Comments Coughing Up Blood Today Encounter Details Date Type Department Care Team (Late st Contact Info) Description 04/18/2025 1:20 PM EST Office Visit [facility] [address] [address] Hemoptysis (Primary Dx); Acute cough; Cough in adult patient Social History Tobacco [...] Sign Reading Time Taken Comments Blood Pressure 146/78 04/18/2025 1:23 PM EST Pulse 73 04/18/2025 1:23 PM EST Temperature 36.7 C (98.1 F) 04/18/2025 1:23 PM EST Respiratory Rate 16 04/18/2025 1:23 PM EST Oxygen Saturation 98% 04/18/2025 1:23 PM EST Inhaled Oxygen Concentration - - Weight 105 kg (232 lb) 04/18/2025 1:23 PM EST Height - - Body Mass Index 36.2 01/11/2025 11:17 AM EDT documented in this encounter Miscellaneous Notes * Assessment & Plan Note - Edgardo Zhu MD - 04/18/2025 2:46 PM EST Associated Problem(s): Hemoptysis Patient is here for a sick visit. He was seen here on 04/14/2025 with c/o fever, chills and sore throat, he was diagnosed with a pharyngitis of unclear etiology and was prescribed Tylenol and Ibuprofen for fever and Lidocaine swishes for sore throat. Throat Cx was obtained and was negative. Patient is here because since yesterday he developed a dry cough and this morning he coughed up blood, which prompted him to come in. He describes the blood as bright red and mixed with his saliva. While he was in the office he couged up again and I was able to witness it. Repeat Flu, Covid and Strep were negative. He denied any chest pain, denied any sob, denied any pain on deep inspiration. No recent weight loss Exam: Unremarkable Etiology? Symptomatology and exam seem indicative of bronchitis, likely viral etiology ( dry non productive cough, afebrile, Normal Pulse Oxymetry ). There is also a component of seasonal allergies But other etiologies need to be ruled out as well. Plan: Refill Flonase and Zyrtec, Guaifenessin and Throat lozenges added Obtain: CBC, D-dimer, T-spot, Chest x-ray, CTA (rule out bronchiectasis, PE ) Pulmonology consult. Discussed with patient that if hemoptysis persists or worsens to present himself to the nearest ER F/U with PCP or Walk In Ctr in 2 days documented in this encounter Plan of Treatment Scheduled Orders Name Type Priority Associated Diagnoses Orde r Schedule CTA Chest WITH AND WITHOUT Contrast Imaging STAT Hemoptysis Ordered: 04/18/2025 CBC auto differential Lab Routine Hemoptysis Expected: 04/18/2025 (Approximate), Expires: 04/18/2026 D Dimer High Sensitivity Lab Routine Hemoptysis Expected: 04/18/2025, Expires: 04/18/2026 T-SPOT .TB Lab Routine Hemoptysis Expected: 04/18/2025 (Approximate), Expires: 04/18/2026 Basic Metabolic Panel Lab Routine Hemoptysis Expected: 04/18/2025 (Approximate), Expires: 04/18/2026 Scheduled Referrals Name Type Priority Associated Diagnoses Order Schedule Referral to Pulmonology Outpatient Referral Urgent Hemoptysis Expected: 04/18/2025 (Approximate), Expires: 04/18/2026 documented as of this encounter Procedures Procedure Name Priority Date/Time Associated Diagnosis Comments XR CHEST 2 VIEWS Routine 04/18/2025 3:27 PM EST Cough in adult patient POCT INFLUENZA B (ID NOW RAPID MOLECULAR) Routine 04/18/2025 2:13 PM EST Acute cough POCT INFLUENZA A (ID NOW RAPID MOLECULAR) Routine 04/18/2025 2:13 PM EST Acute cough POCT RAPID COVID ANTIGEN Routine 04/18/2025 2:13 PM EST Acute cough POCT RAPID STREP A Routine 04/18/2025 2: 13 PM EST Hemoptysis documented in this encounter Results * XR Chest 2 Views (04/18/2025 3:27 PM EST) Anatomical Region Laterality Modality Chest Radiographic Liliana ging 04/18/2025 3:27 PM EST Narrative 04/18/2025 3:38 PM EST [address] [address] XRay Report Signed Patient: Jeffry Kam MR#: [id number] : 1990 Acct:[id number] Age/Sex: 34 / M ADM Date: 04/18/25 Loc: [facility] Attending Dr: Edgardo Vann MD Ordering Physician: Edgardo Vann MD Date of Service: 04/18/25 Procedure(s): XR chest 2V Accession Number(s): [id number] cc: Edgardo Vann MD; Shannon Lipscomb MD Reason for Exam: COUGH EXAMINATION: XR CHEST CLINICAL INFORMATION: COUGH COMPARISON: June 06, 2022 TECHNIQUE: PA and lateral views FINDINGS: No consolidation, pleural effusion or pneumothorax. No hyperinflation. Cardiomediastinal silhouette size is normal. Osseous structures are intact. XR/XR chest 2V IMPRESSION: No acute airspace disease. Electronically signed by: Tomás Isaac MD 04/18/2025 03:35 PM EST Dictated By: Tomás Yeung MD Signed By: <Electronically signed by Tomás Chawla MD in OV> 04/18/25 1535 DD/ 1527 TD/TT: 04/18/25 1529 Recreation Manager: Procedure Note Donotuseinterpreter, Image - 04/18/[address] [address] XRay Report Signed Patient: Jessica KamR#: [id number] : 1990Acct:[id number] Age/Sex: 34 / MADM Date: 04/18/25 Loc: [facility] Attending Dr: Edgardo Vann MD Ordering Physician: Edgardo Vann MD Date of Service: 04/18/25 Procedure(s): XR chest 2V Accession Number(s): [id number] cc: Edagrdo Vann MD; Shannon Lipscomb MD Reason for Exam: COUGH EXAMINATION: XR CHEST CLINICAL INFORMATION: COUGH COMPARISON: June 06, 2022 TECHNIQUE: PA and lateral views FINDINGS: No consolidation, pleural effusion or pneumothorax. No hyperinflation. Cardiomediastinal silhouette size is normal. Osseous structures are intact. XR/XR chest 2V IMPRESSION: No acute airspace disease. Electronically signed by: Tomás Isaac MD 04/18/2025 03:35 PM EST RP Dictated By: Tomás Yeung MD Signed By: <Electronically signed by Tomás Chawla MDin OV> 04/18/25 1535 DD/ 1527 TD/TT: 04/18/25 1529 Recreation Manager: us Edgardo Zhu MD IMG XR PROCEDURES Fin al Result * POCT rapid strep A manually resulted (04/18/2025 2:13 PM EST) [facility] Rapid Strep A Screen Negative Negative, None Detected Swab 04/18/2025 2:13 PM EST Result [facility] us Edgardo Zhu MD POINT OF CARE TEST EN TER/EDIT ORDERABLES Final Result * POCT Rapid COVID Ag (04/18/2025 2:13 PM EST) [facility] Rapid COVID Ag Negative Swab 04/18/2025 2:13 PM EST us Edgardo Zhu MD POINT OF CARE TEST EN TER/EDIT ORDERABLES Final Result * Influenza B (ID NOW Rapid Molecular) (04/18/2025 2:13 PM EST) [facility] Influenza B Negative Negative, Indeterminate [facility] Swab 04/18/2025 2:13 PM EST us Edgardo Zhu MD POINT OF CARE TEST EN TER/EDIT ORDERABLES Final Result [facility] [address] [place] [address] [phone] * Influenza A (ID NOW Rapid Molecular) (04/18/2025 2:13 PM EST) Influenza A Negative Negative, Indeterminate [facility] Swab 04/18/2025 2:13 PM EST us Edgardo Zhu MD POINT OF CARE TEST EN TER/EDIT ORDERABLES Final Result [facility] [address] [place] [address] [phone] documented in this encounter Visit Diagnoses Diagnosis Hemoptysis- Primary Acute cough Cough in adult patient documented in this encounter Additional Health Concerns Assessment Noted Time PHQ-9 Depression Total Score: 12 025 1:30 PM EDT documented as of this encounter Care Teams Product Lister Relationship Specialty Start Date End Date Shannon Lipscomb MD [address] [place] [address] PCP - General Internal Medicine 03/11/23 documented as of this encounter
--- OUTSIDE RECORDS SUMMARY | 2025-04-18 16:13 | XMS_ITS | Encounter Summary ---
Author Organization [facility] Address [address] [place] [address] Phone Care Team Providers Care Furniture Assembler And Installer Name Role Phone Marquis Aguirre MD Primary Care Provider [phone] Encounter Details Date Type Department Care Team (Late st Contact Info) Description 06/16/2011 Documentation [facility] [place] [address] [place], [place] [phone] Family Medicine, Physician [address], [place] [address] Social History Tobacco Use Types Packs/Day Years [...] on filedocumented in this encounter Care Teams Furniture Assembler And Installer Relationship Specialty Start Date End Date Marquis Aguirre MD 150 [facility] DARSHANA Gallardo PCP - General 01/16/17 07/23/22 documented as of this encounter
--- OUTSIDE RECORDS SUMMARY | 2025-04-18 16:13 | XMS_ITS | Clinical Summary ---
Author Organization [employer] Address [address] [facility] 7t [place] [address] Care Team Providers Care Colored Liquid Plastic Applier Name Role Phone Shannon Lipscomb MD Primary Care Pro vider Allergies No known active allergies Medications * This document contains information received from the source organization and may not represent a complete record from that organization. D3 50 MCG (1999) tabletIndicati ons:Vitamin D deficiency Take 2,000 Units [...] hours. 60 tablet 2 09/10/19 25 Active diphenhydrAMIN E (BENADryl) 25 MG tablet Take 1 tablet (25 mg) by mouth every 6 (six) hours if needed for itching. 30 tablet 02/24/20 25 Active acetaminophen (Tylenol 8 Hour) 650 MG ER tabletIndicati ons:Chills,Pha ryngitis, unspecified etiology Take 1 tablet (650 mg) by mouth every 8 (eight) hours if needed for mild pain for up to 10 days. Do not crush, chew, or split. 30 tablet 04/14/20 25 025 Active ibuprofen 600 MG tabletIndicati ons:Chills,Pha ryngitis, unspecified etiology Take 1 tablet (600 mg) by mouth every 8 (eight) hours if needed for mild pain for up to 10 days. 30 tablet 04/14/20 25 025 Active lidocaine (Xylocaine) 2 % solution Take 1.3 mL by mouth if needed for mild pain for up to 10 days. 100 mL 04/14/20 25 025 Active triamcinolone (Kenalog) 0.1 % creamIndicatio ns:Rash Apply topically if needed in the morning and at bedtime (pain and swelling). 30 g 2 04/14/20 25 Active fluticasone (Flonase Allergy Relief) 50 MCG/ACT nasal sprayIndicatio ns:Cough in adult patient Administer 1 spray into each nostril Once per day. Shake gently. Before first use, prime pump. After use, clean tip and replace cap. 16 g 1 04/18/20 25 026 Active cetirizine (ZyrTEC) 10 MG tabletIndicati ons:Acute cough Take 1 tablet (10 mg) by mouth Once per day. 30 tablet 3 04/18/20 25 026 Active benzocaine-men thol (Chloraseptic) 6-10 MG lozengeIndicat ions:Acute cough Dissolve 1 lozenge in the mouth every 2 (two) hours if needed for sore throat. 100 lozenge 04/18/20 25 026 Active guaiFENesin (Robitussin) 100 MG/5ML liquidIndicati ons:Acute cough Take 10 mL (200 mg) by mouth if needed in the morning, at noon, and at bedtime for cough for up to 10 days. 120 mL 11/11/ 025 Active Acetaminophen Extra Strength 500 MG tablet TAKE 1 TAB ORALLY EVERY 6 HOURS NEEDED FOR FEVER OR PAIN 06/05/20 22 025 Discontinued aspirin-acetam inophen-caffei ne (Excedrin Migraine) 250-250-65 MG tablet Take 1 tablet by mouth every 12 (twelve) hours if needed for headaches. 1-2 tab PRN for headaches 30 tablet 2 03/31/20 24 fluticasone (Flonase Allergy Relief) 50 MCG/ACT nasal sprayIndicatio ns:Cough in adult patient Administer 1 spray into each nostril Once per day. Shake gently. Before first use, prime pump. After use, clean tip and replace cap. 16 g 1 09/22/19 25 025 Discontinued(Re order (will not trigger notification to Pharmacy)) cetirizine (ZyrTEC) 10 MG tablet Take 1 tablet (10 mg) by mouth Once per day. 30 tablet 3 02/24/20 025 Discontinued(Re order (will not trigger notification to Pharmacy)) Active Problems Problem Noted Date Diagnosed Date Hemoptysis 04/18/2025 Assessment & Plan (04/18/2025 2:46 PM EST): Patient is here for a sick visit. [...] or Walk In Ctr in 2 days Acute cough 04/18/2025 PTSD (post-traumatic stress disorder) 01/11/2025 Bleeding hemorrhoids [...] organization. Date Type Department Care Team Description 04/18/2025 1:20 PM EST Office Visit [facility] [address] [place] [phone] Hemoptysis (Primary Dx); Acute cough; Cough in adult patient 04/18/2025 Travel 04/17/2025 Telephone [facility] [address] [place] [phone] Karol Arellano NP Throat culture not perform 04/14/2025 1:00 PM EST Office Visit [facility] [address] [place] [address] [phone] Karol Arellano NP Chills (Primary Dx); Pharyngitis, unspecified etiology; Rash 04/14/2025 Travel 02/23/2025 11:20 AM EDT Office Visit [facility] [address] [place] [phone] [place], Tg, DO Dermatitis (Primary Dx) 02/23/2025 Travel from Last 3 Months Immunizations Immunization Administration Dates Next Due DTP 01/05/1997, 5,01/04/1993,10/15,1992 HPV, Quadrivalent 04/22/2012,10/15/2010,08/09/19 11 Hep B, Adolescent or Pediatric 01/04/1993,1992,1992 Hib (PRP-T) 08/26/1993, 3,1992,08/10 IPV 01/05/1997 Influenza injectable quadriv alent preservative free 05/25/2018 Influenza, IIV3, injectable 03/22/2009 Influenza, Split (incl. erika fied surface antigen) 04/22/2012,02/27/2011,04/29/2010 MMR 01/05/1997,02/04/1996 Meningococcal MCV4P ACYW-135 05/26/2008 Novel [id number]-[id number], all formulations 03/22/2009 OPV, Trivalent 11/04/1994,1992,1992 TD [...] (232 lb) 04/18/2025 1:23 PM EST Height 170.5 cm (5' 7.13 [...] 09/09/2024 Disability Screening 01/11/2026 01/11/2025 Tobacco Screening 04/18/2026 04/18/2025 DTaP/Tdap/Td Vaccines (8 - Td or Tdap) [...] PM EST Cough in adult patient POCT RAPID STREP A Routine 04/18/2025 2: 13 PM EST Hemoptysis POCT RAPID COVID ANTIGEN Routine 04/18/2025 2:13 PM EST Acute cough POCT INFLUENZA B (ID NOW RAPID MOLECULAR) Routine 04/18/2025 2:13 PM EST Acute cough POCT INFLUENZA A (ID NOW RAPID MOLECULAR) Routine 04/18/2025 2:13 PM EST Acute cough POCT INFLUENZA B (ID NOW RAPID MOLECULAR) [...] Recently Relevant to Health Maintenance Results * XR Chest 2 Views (04/18/2025 3:27 PM EST) Anatomical Region Laterality Modality Chest Radiographic Liliana ging 04/18/2025 3:27 PM EST Narrative 04/18/2025 3:38 PM EST [place] [address] XRay Report Signed Patient: Jeffry Kam MR#: [id number] : 1990 Acct:[id number] Age/Sex: 34 / M ADM Date: 04/18/25 Loc: HO.XRAY Attending Dr: Edgardo Vann MD Ordering Physician: Edgardo Vann MD Date of Service: 04/18/25 Procedure(s): XR chest 2V Accession Number(s): [id number] cc: Edgardo Vann MD; Shannon Lipscomb MD [...] 04/18/25 1535 DD/ 1527 TD/TT: 04/18/25 1529 Soldering Machine Operator Automatic: Procedure Note Donotuseinterpreter, Image - 04/18/2025 [place] [address] XRay Report Signed Patient: Ronal Kam#: [id number] : 1990Acct:[id number] Age/Sex: 34 / MADM Date: 04/18/25 Loc: HO.XRAY Attending Dr: Edgardo Vann MD Ordering Physician: Edgardo Vann MD Date of Service: 04/18/25 Procedure(s): XR chest 2V Accession Number(s): [id number] cc: Edgardo Vann MD; Shannon Lipscomb MD [...] 04/18/25 1535 DD/ 1527 TD/TT: 04/18/25 1529 Soldering Machine Operator Automatic: us Edgardo Zhu MD IMG XR PROCEDURES Fin al Result * Influenza B (ID NOW Rapid Molecular) (04/18/2025 2:13 PM EST) Only the most recent of2 resultswithin the time period is included. [facility] Influenza B Negative Negative, Indeterminate [facility] Swab 04/18/2025 2:13 PM EST Edgardo Zhu MD POINT OF CARE TEST EN TER/EDIT ORDERABLES Final Result Performing Organization Address City/[facility]/ZIP Co de Phone Number [facility] [address] [place] [address] [phone] * Influenza A (ID NOW Rapid Molecular) (04/18/2025 2:13 PM EST) Only the most recent of2 resultswithin the time period is included. [facility] Influenza A Negative Negative, Indeterminate [facility] Swab 04/18/2025 2:13 PM EST Result [facility] us Edgardo Zhu MD POINT OF CARE TEST EN TER/EDIT ORDERABLES Final Result Performing Organization Address City/[facility]/ZIP Co de Phone Number [facility] [address] [place] [phone] * POCT Rapid COVID Ag (04/18/2025 2:13 PM EST) Only the most recent of2 resultswithin the time period is included. [facility] Rapid COVID Ag Negative Swab 04/18/2025 2:13 PM EST Result [facility] us Edgardo Zhu MD POINT OF CARE TEST EN TER/EDIT ORDERABLES Final Result * POCT rapid strep A manually resulted (04/18/2025 2:13 PM EST) Only the most recent of2 resultswithin the time period is included. Rapid Strep A Screen Negative Negative, None Detected Swab 04/18/2025 2:13 PM EST Edgardo Zhu MD POINT OF CARE TEST EN TER/EDIT ORDERABLES Final Result * (ABNORMAL) LIPID PANEL, STANDARD (09/04/2020 1:06 PM EDT) Pathologist [facility] Chol/HDLC Ratio 4.4 <5.0 (calc) [facility] [...] factors. LDL-C is now calculated using the Louis-Erik calculation, which is a validated novel method providing better accuracy than the Friedewald equation in the estimation of LDL-C. Louis SS et al. EMELIA. 2013;310(19): 2462-0991 (http://education.GoHealth.com/faq/DDW550) Non-HDL Cholesterol 126 <130 mg/dL (calc) [facility] Comment: For patients with diabetes plus 1 major ASCVD risk factor, treating to a non-HDL-C goal of <100 mg/dL (LDL-C of <70 mg/dL) is considered a therapeutic option. Triglycerides 120 <150 mg/dL [facility] 09/04/2020 1:06 PM EDT Mckayla Simpson CONTROL OPERATOR [facility] BLOOD ORDERABLES Final Result [facility] [address] from Last 3 Months or Most Recently Relevant to Health Maintenance Insurance [facility] C3 Care Teams Colored Liquid Plastic Applier Relationship Specialty Start Date End Date Shannon Lipscomb MD [address] [place] [phone] PCP - General Internal Medicine 03/11/23
--- OUTSIDE RECORDS SUMMARY | 2025-04-18 16:13 | XMS_ITS | Encounter Summary ---
Author Organization [facility] Address [address] [place] [address] Phone Care Team Providers Care Forming Yardage Control Operator Name Role Phone Marquis Aguirre MD Primary Care Provider [phone] Encounter Details Date Type Department Care Team (Late st Contact Info) Description 08/29/2013 Documentation [facility] [address] [place], [place] [phone] Family Medicine, Physician [address] [place], [place] [phone] Social History Tobacco Use Types Packs/Day Years [...] on filedocumented in this encounter Care Teams Forming Yardage Control Operator Relationship Specialty Start Date End Date Marquis Aguirre MD 150 [facility] DASRHANA Gallardo PCP - General 01/16/17 07/23/22 documented as of this encounter
--- OUTSIDE RECORDS SUMMARY | 2025-04-18 16:13 | XMS_ITS | Encounter Summary ---
Author Organization [facility] Address [address] [place] [address] Phone Care Team Providers Care Carpet Layer Name Role Phone Marquis Aguirre MD Primary Care Provider [phone] Encounter Details Date Type Department Care Team (Late st Contact Info) Description 03/03/2011 Documentation [facility] [place] [address] [place], [place] [phone] Family Medicine, Physician [address] [place], [place] [address] Social History Tobacco Use Types Packs/Day Years [...] on filedocumented in this encounter Care Teams Carpet Layer Relationship Specialty Start Date End Date Marquis Aguirre MD 150 [facility] DARSHANA Gallardo PCP - General 01/16/17 07/23/22 documented as of this encounter
--- OUTSIDE RECORDS SUMMARY | 2025-04-18 16:13 | XMS_ITS | Encounter Summary ---
Author Organization [employer] Address [address] [facility] [address] 7t [place] [address] Care Team Providers Care Trailer Steerer Name Role Phone Shannon Lipscomb MD Primary [...] documented as of this encounter Care Teams Trailer Steerer Relationship Specialty Start Date End Date Shannon Lipscomb MD [address] [place] [phone] PCP - General Internal Medicine 03/11/23 documented as of this encounter
--- OUTSIDE RECORDS SUMMARY | 2025-04-18 16:13 | XMS_ITS | Encounter Summary ---
Author Organization [employer] Address [address] [facility] 7t [place] [address] Care Team Providers Care Gwot Ia/Ilo Intelligence Support Name Role Phone Shannon Lipscomb MD Primary Care Pro vider Reason for Visit * Reason Onset Date Comments Throat culture not perform 04/17/2025 Encounter Details Date Type Department Care Team (Late st Contact Info) Description 04/17/2025 Telephone [facility] [address] [place] [address] Karol Arellano NP 230 [place] [address] Throat culture not perform Social History Tobacco Use Types Packs/Day Years [...] encounter Miscellaneous Notes * Telephone Encounter - Cecilia Smiley MA - 04/17/2025 1:42 PM EST Incoming call from [facility] michael Paige to notify that due to unlabeled throat culture received test was not perform. Please notify RN if needs a re-collection. documented in this encounter Plan of Treatment Not on file documented as of this encounter Visit Diagnoses Not on filedocumented in this encounter Additional Health Concerns Assessment Noted Time PHQ-9 Depression Total Score: 12 025 1:30 PM EDT documented as of this encounter Care Teams Gwot Ia/Ilo Intelligence Support Relationship Specialty Start Date End Date Shannon Lipscomb MD [address] [place] [phone] PCP - General Internal Medicine 03/11/23 documented as of this encounter
--- OUTSIDE RECORDS SUMMARY | 2025-04-18 16:13 | XMS_ITS | Encounter Summary ---
Author Organization [employer] Address [address] [facility] 7 [place] [address] Care Team Providers Care Project Surveyor Name Role Phone Shannon Lipscomb MD Primary Care Pro vider Reason for Visit * Reason Onset Date Comments Nurse Triage 01/11/2025 Encounter Details Date Type Department Care Team (Late st Contact Info) Description 01/11/2025 Telephone [facility] [address] [place] [address] Shannon Lipscomb MD 230 [place] [address] Nurse Triage Social History Tobacco Use Types [...] Questionnaire-2 Score 3 01/11/2025 1:30 PM EDT tAtila Leiva * Little interest or pleasure in [...] as well. Pt is given crisis number [phone] to call when needed. Pt agrees to try this if needs to speak with someone. Pt reports , I want to be a good father and do well with my kids , I don't want this to get worse . Pt is transferred to [facility] via phone. ASK apt with CHAPIN Mason [...] or work) The caller accepted this outcome. [phone] documented in this encounter Plan of Treatment Not on file documented as of this encounter Visit Diagnoses Not on filedocumented in this encounter Additional Health Concerns Assessment Noted Time PHQ-9 Depression Total Score: 12 08/06/2 025 1:30 PM EDT documented as of this encounter Care Teams Project Surveyor Relationship Specialty Start Date End Date Shannon Lipscomb MD [address] [place] [phone] PCP - General Internal Medicine 03/11/23 documented as of this encounter
--- OUTSIDE RECORDS SUMMARY | 2025-04-18 16:13 | XMS_ITS | Encounter Summary ---
Author Organization [employer] Address [address] [facility] [address] 7[address] [place] [address] Care Team Providers Care Fibre Technologist Name Role Phone Shannon Lipscomb MD Primary Care Pro vider Encounter Details Date Type Department Care Team (Latest Contact Info) Description 04/18/2025 Travel Social History Tobacco Use Types Packs/Day [...] documented as of this encounter Care Teams Fibre Technologist Relationship Specialty Start Date End Date Shannon Lipscomb MD [address] [place] [phone] PCP - General Internal Medicine 03/11/23 documented as of this encounter
--- OUTSIDE RECORDS SUMMARY | 2025-04-18 16:13 | XMS_ITS | Clinical Summary ---
Author Organization [facility] Address [address] [place] [phone] Phone Care Team Providers Care Clinical Application Consultant Name Role Phone Unavailable Primary Care Provider [...]
--- OUTSIDE RECORDS SUMMARY | 2025-04-18 16:13 | XMS_ITS | Encounter Summary ---
Author Organization [facility] Address [address] [place] [address] Phone Care Team Providers Care Director Sales Name Role Phone Marquis Aguirre MD Primary Care Provider [phone] Encounter Details Date Type Department Care Team (Late st Contact Info) Description 01/22/2017 Conversion Encounter [facility] [place] [address] [place] [address] Social History Tobacco Use Types Packs/Day Years [...] on filedocumented in this encounter Care Teams Director Sales Relationship Specialty Start Date End Date Marquis Aguirre MD 150 [place] [address] PCP - General 01/16/17 07/23/22 documented as of this encounter
--- OUTSIDE RECORDS SUMMARY | 2025-04-18 16:13 | XMS_ITS | Encounter Summary ---
Author Organization [employer] Address [address] [facility] 7 [place] [address] Care Team Providers Care Statistical Technician Name Role Phone Shannon Lipscomb MD Primary Care Pro vider Reason for Visit * Reason Onset Date Comments Appointment Request 05/12/2024 Encounter Details Date Type Department Care Team ([facility] st Contact Info) Description 05/12/2024 Telephone [facility] [address] [place] [address] Shannon Lipscomb MD 230 [place] [address] Appointment Request Social History Tobacco Use Types [...] main one. If no answer please contact [phone]. documented in this encounter Plan of Treatment Not on file documented as of this encounter Visit Diagnoses Not on filedocumented in this encounter Additional Health Concerns Assessment Noted Time PHQ-9 Depression Total Score: 3 06/19/19 2:58 PM EST documented as of this encounter Care Teams Statistical Technician Relationship Specialty Start Date End Date Shannon Lipscomb MD [address] [place] [address] PCP - General Internal Medicine 03/11/23 documented as of this encounter
--- OUTSIDE RECORDS SUMMARY | 2025-04-18 16:14 | XMS_ITS | Encounter Summary ---
Author Organization [facility] Address [address] [place] [address] Phone Care Team Providers Care Heat Welder Plastics Name Role Phone Marquis Aguirre MD Primary Care Provider [phone] Encounter Details Date Type Department Care Team (Late st Contact Info) Description 03/03/2011 Documentation [facility] [place] Family Medicine [address] [place], [place] [phone] Family Medicine, Physician [address] [place], [place] [address] Social History Tobacco Use Types Packs/Day Years [...] on filedocumented in this encounter Care Teams Heat Welder Plastics Relationship Specialty Start Date End Date Marquis Aguirre MD 150 [facility] DARSHANA Gallardo PCP - General 01/16/17 07/23/22 documented as of this encounter
--- OUTSIDE RECORDS SUMMARY | 2025-04-18 16:14 | XMS_ITS | Encounter Summary ---
Author Organization [facility] Address [address] [place] [address] Phone Care Team Providers Care Accounting Systems Analyst Name Role Phone Marquis Aguirre MD Primary Care Provider [phone] Encounter Details Date Type Department Care Team (Late st Contact Info) Description 05/30/2010 Documentation [facility] [place] [address] [place], [place] [phone] Family Medicine, Physician [address] [place], [place] [address] Social History Tobacco Use Types Packs/Day Years [...] on filedocumented in this encounter Care Teams Accounting Systems Analyst Relationship Specialty Start Date End Date Marquis Aguirre MD 150 [facility] DARSHANA Gallardo PCP - General 01/16/17 07/23/22 documented as of this encounter
--- OUTSIDE RECORDS SUMMARY | 2025-04-18 16:14 | XMS_ITS | Encounter Summary ---
Author Organization [employer] Address [address] [facility] 7t [place] [address] Care Team Providers Care Pattern Finisher Name Role Phone Neha Ramos BILLING ANALYST Primary Care Provider Shannon Lance MD Primary Care Pro vider Reason for Visit * Reason Comments Med Change Request Encounter Details Date Type Department Care Team (Late st Contact Info) Description 06/19/2022 Refill [facility] [address] [place], [place] [phone] Neha Ramos FNP Migraine without aura and [...] 06/20/2022 1:06 PM EST Medication available at [facility] pharmacy Will send med there [facility] will only fill quantity of 20 documented in this encounter Plan of Treatment Not on file documented as of this encounter Visit Diagnoses Diagnosis Migraine without aura and without status migrainosus, not intractable documented in this encounter Additional Health Concerns Assessment Noted Time PHQ-9 Depression Total Score: 3 06/19/19 23 2:58 PM EST documented as of this encounter Care Teams Pattern Finisher Relationship Specialty Start Date End Date Neha Ramos FNP PCP - General Family Medicine 11/20/21 03/10/23 Shannon Lipscomb MD [address] [place] [phone] PCP - General Internal Medicine 03/11/23 documented as of this encounter
--- OUTSIDE RECORDS SUMMARY | 2025-04-18 16:14 | XMS_ITS | Encounter Summary ---
Author Organization [facility] Address [address] [place] [address] Phone Care Team Providers Care Triage Nurse Name Role Phone Marquis Aguirre MD Primary Care Provider [phone] Encounter Details Date Type Department Care Team (Late st Contact Info) Description 08/12/2010 Documentation [facility] [place] Family Medicine [address] [place], [place] [phone] Family Medicine, Physician [address] [place], [place] [address] Social History Tobacco Use Types Packs/Day Years [...] on filedocumented in this encounter Care Teams Triage Nurse Relationship Specialty Start Date End Date Marquis Aguirre MD 150 [facility] DARSHANA Gallardo PCP - General 01/16/17 07/23/22 documented as of this encounter
--- OUTSIDE RECORDS SUMMARY | 2025-04-18 16:14 | XMS_ITS | Encounter Summary ---
Author Organization [facility] Address [address] [place] [address] Phone Care Team Providers Care Filament Tester Name Role Phone Marquis Aguirre MD Primary Care Provider [phone] Encounter Details Date Type Department Care Team (Late st Contact Info) Description 03/12/2012 Documentation [facility] [place] [address] [place], [place] [phone] Family Medicine, Physician [address] [place], [place] [address] Social History Tobacco Use Types Packs/Day Years [...] on filedocumented in this encounter Care Teams Filament Tester Relationship Specialty Start Date End Date Marquis Aguirre MD 150 [facility] DARSHANA Gallardo PCP - General 01/16/17 07/23/22 documented as of this encounter
--- OUTSIDE RECORDS SUMMARY | 2025-04-18 16:14 | XMS_ITS | Encounter Summary ---
Author Organization [facility] Address [address] [place] [address] Phone Care Team Providers Care Refrigerating Engineer Head Name Role Phone Marquis Aguirre MD Primary Care Provider [phone] Encounter Details Date Type Department Care Team (Late st Contact Info) Description 08/21/2009 Documentation [facility] [place] Family Medicine [address] [place], [place] [phone] Family Medicine, Physician [address] [place], [place] [phone] Social History Tobacco Use Types Packs/Day Years [...] on filedocumented in this encounter Care Teams Refrigerating Engineer Head Relationship Specialty Start Date End Date Marquis Aguirre MD 150 [facility] DARSHANA Gallardo PCP - General 01/16/17 07/23/22 documented as of this encounter
--- OUTSIDE RECORDS SUMMARY | 2025-04-18 16:14 | XMS_ITS | Data Portability ---
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 Imaging CT, maxillofaci al, w/o contrast 2024 025 [email or web address] [facility], [address], [place], [address], 5 16:09:19 Medication Orders epinephrine 0.3 mg/0.3 mL injection, auto-inject or 2024 025 [facility]armacy #[id number], [phone] [place], [address], 5 14:12:07 triamcinolo ne acetonide 55 mcg nasal spray aerosol 2023 024 [facility]/Pharmacy #[id number], [phone] [place], [address], 4 13:35:40 Patient TargetsNo targets recorded. Patient InstructionsNo instructions recorded. Reason for Referral None Reported. Results Created Date Observation Date Name Description Value Unit Range Abnormal Flag Note LastModifiedBy Organization Detail LastModifiedTime 07/07/19 25 07/06/2024 CT, maxil lofac ial, w/o contr ast No observ ation record ed. [email or web address] [facility] [address] [facility] [address], [place], [address], 07/22/2024 08:38:03 Result Notes None recorded. Problems Name Problem SNOMED Code Status Onset Date Resolution Date Notes Provider Name and Address Organization Details Recorded Time Deviated nasal septum 381066756 Active 024 SUMAYA YARBROUGH MD 100 [facility],[place] [address], [place], [address], [facility] - [facility] 4 09:28:35 Chronic rhinitis 83628458 Active 024 SUMAYA YARBROUGH MD [address] [address], [place], [address], [facility] - [facility] 4 09:28:43 Allergic rhinitis 72516909 Active 024 SUMAYA YARBROUGH MD 100 [facility], [place], [address], [facility] 4 09:28:55 Chronic sinusitis 49547965 Active 025 SUMAYA YARBROUGH MD 100 [facility], [facility], [place], [address], [facility] - [facility] 5 14:11:02 Problem Notes None recorded. Procedures Surgical History Date Name Laterality Status Provider Name and Address Organization Details Recorded Time 4 Allergy Testing-Full completed ANGY DUMONT 100 [facility],[place] [address], [place], [address], [facility] - [facility] 04/06/2024 14:33:46 removal of pilonidal cyst completed SUMAYA WEN MD 100 [facility],[address], [address], [facility] 03/24/2024 09:24:17 Imaging Results None recorded. [...] Updated DateTime 06/22/2024 177.8 cm 25.8 kg/m2 04180.63 g Vickey Sánchez [facility] 06/22/2024 13:56:10 Date Recorded Systolic And Diastolic Provider Name and Address Organization Details Last Updated DateTime 03/24/2024 118/80 mm[Hg] SUMAYA WEN MD [address], [address], [facility] 03/24/2024 09:34:49 Date Recorded Body height Body mass index (BMI) Body weight Provider Name and Address Organization Details Last Updated DateTime 03/24/2024 177.8 cm 26.3 kg/m2 79893.4 g Vickey Sánchez [facility] 03/24/2024 09:17:27 Date Recorded Body height Heart rate Body mass index (BMI) Body weight Systolic And Diastolic Provider Name and Address Organization Details Last Updated DateTime 03/28/2024 177.8 cm 87 /min 26.5 kg/m2 29954.59 g 126/76 mm[Hg] MAXIME GOMEZ RN [address], [address] , [facility] 03/28/2024 13:19:17 Date Recorded Body height Body mass index (BMI) Body weight Oxygen saturation Oxygen saturation in Arterial blood by Pulse oximetry Heart rate Systolic And Diastolic Provider Name and Address Organization Details Last Updated DateTime 177.8 cm 27.1 kg/m2 92663.9 6 g 97 % 97 % 62 /min 111/70 mm[Hg] ANGY DUMONT [address], [address], [facility] 13:44:36 Social History None recorded. Functional Status None recorded. Mental Status None recorded. Family History Nothing Reported. Medical History No medical history recorded. Past Encounters Encounter ID Performer Location Encounter Start Date Encounter Closed Date Diagnosis/Indication Diagnosis SNOMED-CT Code Diagnosis ICD10 Code Diagnosis IMO Codes Diagnosis Note [id number] SUMAYA TURK MD [facility] 100 [place] [address] 03/24/2024 09:11:58 03/24/2024 09:44:11 Deviated nasal septum 855354692 J34.2 Chronic rhinitis 8276863 6 J31.0 Allergic rhinitis 483306 04 J30.9 [id number] MAXIME GOMEZ RN [facility] [address] [place] [address], [place] [address] 03/28/2024 13:08:30 03/28/2024 13:47:47 Allergic rhinitis 17768874 J30.9 [id number] ANGY DUMONT [facility] [address] [place] [address], [place] [address] 04/06/2024 13:25:39 04/06/2024 14:47:14 Allergic rhinitis 86533109 J30.9 [id number] SUMAYA TURK MD [facility] [address] [place] [address] 06/22/2024 13:15:29 06/22/2024 14:57:48 Allergic rhinitis 75232678 J30.89 We also discussed the role of [...] an Epipen discussed. Deviated nasal septum 12 2527456 J34.2 Chronic rhinitis 5188714 6 J31.0 Health Concerns Section Related Observation LastModified by Organization Detai ls LastModified Time None Recorded Concern Status LastModified by Organization Details LastModified Time None Recorded Advance Directives Directive None Recorded Payers Insurance Date Sequence Insurance Name Policy Number Policy Ramos Covered Member ID Ramos Member ID Guarantor Name 08/07/2024 1 [facility] [employer] (MEDICAID REPLACEMENT - HMO) DEVIJOSE [id number] Jeromy Rivera [id number] Jeromy Rivera Notes Date Note Type Note [...] hx of asthma NOSE=[id number] SUMAYA WEN MD [address] [place] [address], [address], [facility] 03/24/2024 10:01:42 06/22/2024 text/html ROS as noted in the HPI Persistent nasal congestion right greater than left. Significant allergy noted dust, mold, cockroach, dog, etc SUMAYA WEN MD [address] [place] [address],[address], [address], [facility] 06/22/2024 14:12:35
== END 2025-04-18 14:31 | disposition home or self-care (01) ==
LOC: HO.HHCX 14:30
PROVIDERS: PCP Internal Medicine; Visit Provider Internal Medicine
DX: Z13.89 Encounter for screening for other disorder (principal)

== ENCOUNTER 2025-04-18 15:14 | Outpatient (REF) | payer MEDICAID, SELFPAY ==
--- NOTE | ~2025-04-18 | XR_ITS ---
EXAMINATION: XR CHEST CLINICAL INFORMATION: COUGH COMPARISON: June 06, 2022 TECHNIQUE: PA and lateral views FINDINGS: No consolidation, pleural effusion or pneumothorax. No hyperinflation. Cardiomediastinal silhouette size is normal. Osseous structures are intact. XR/XR chest 2V IMPRESSION: No acute airspace disease. Electronically signed by: Tomás Isaac MD 04/18/2025 03:35 PM EST
== END 2025-04-18 15:15 | disposition home or self-care (01) ==
LOC: HO.XRAY 15:14
PROVIDERS: PCP Student in an Organized Health Care Education/Training Program; Visit Provider Internal Medicine
DX: R04.2 Hemoptysis (principal); R05.9 Cough, unspecified
CPT/HCPCS: 71046

== ENCOUNTER → 2025-04-18 15:22 | Outpatient (BNV) | payer MEDICAID, SELFPAY | PROVIDERS: PCP Student in an Organized Health Care Education/Training Program; Visit Provider Radiology Diagnostic Radiology | DX: R05.9 Cough, unspecified (principal) | CPT/HCPCS: 71046 ==